=== PATIENT | male | born 1985 | race Caucasian/White ===

== ENCOUNTER → 2021-07-05 09:19 | Outpatient (BNVA) | payer SELFPAY | PROVIDERS: Visit Provider Orthopaedic Surgery | DX: Z01.812 Encounter for preprocedural laboratory examination (principal); Z20.822 Contact with and (suspected) exposure to COVID-19 | CPT/HCPCS: 87635 ==

== ENCOUNTER 2021-07-08 11:29 | Day surgery (SDC) | payer SELFPAY ==
[2021-07-07 10:34] VITALS: BMI 31.1
[2021-07-08] VITALS (15 sets, daily range): BP systolic 140–172; BP diastolic 94–110; PULSE 59–74; RESP 14–18; TEMP 36.1–36.4; O2SAT 91–97
--- NOTE | 2021-07-08 | XR_ITS ---
WS: [id number] Left clavicle, C-arm fluoroscopy, 07/08/2021 Clinical Data: ORIF LT CLAVICLE Comparison: None. Findings: The mid shaft fracture of the left clavicle is repaired with a plate and screws. XR/[place] [id number] Impression: Internal fixation of left clavicular fracture.
--- NOTE | 2021-07-08 | SCC_ITS ---
Procedure Done: Open reduction and internal fixation left clavicle 9.6 seconds of fluoroscopic guidance, for a cumulative dose of 1.69 mGy, was provided to Dr. Paz by the radiology department. C-arm images of the LEFT clavicle were saved for the patient's permanent record. [facility]ENTER[facility]ley
[2021-07-08] MEDS: sodium chloride 0.9% 1,000 ML 30 ML IV (12:48)
[2021-07-08] MEDS: fentaNYL 50 mcg/mL INJ 2mL IVP (13:00)
--- NOTE | 2021-07-08 13:45 | ANES.PREANE2 ---
Pre-Anesthetic Assessment Pre-Anesthetic Assessment: Height/Weight: Height 1.73 m Weight 92.986 kg Temp Pulse Resp BP Pulse Ox 96.9 F L 59 L 18 172/100 97 07/08/21 11:57 07/08/21 11:57 07/08/21 13:00 07/08/21 11:57 07/08/21 11:57 Preop Diagnosis: Fracture Left clavicle Proposed Procedure: Operation Date: 07/08/21 12:55 Proposed Procedures p ORIF Clavicle 01686 S42.002A(Left) - Francois Paz MD Was Beta Narayan taken within 24 hours: Yes Was Clonidine taken within 24 hours: N/A Last intake: Intake Last Liquid Date 07/07/21 Last Liquid Time 20:00 Last Solid Date 07/07/21 Last Solid Time 20:00 Social: Social History: Tobacco Exam: Pre-Anes Outpt Exam: alert, oriented x 3, clear to auscultation bilaterally and regular rate & rhythm Airway: Submandibular: WNL Cervical ROM: WNL MP: 2 History/ROS: No significant complaints CV/HEM: CV/HEM: HTN Anesthetic Plan: ASA status: 2 Anesthesia: Anesthesia Evaluation, General and Regional (specify below) Other: Interscalene block. Risk of > 500 ml blood loss (7ml/kg in children): No Meds/Allergies Current Medications: Current Medications Generic Name Dose Route Start Last Admin Trade Name Freq PRN Reason Stop Dose Admin Fentanyl 50 mcg 07/08/21 11:40 07/08/21 13:10 Fentanyl 50 Mcg/ Ml Inj 2ml IVP 50 mcg Q10M PRN Administration Preop Pain Sodium Chloride 1,000 mls @ 30 ml s/hr 07/08/21 11:45 07/08/21 12:48 Sodium Chloride 0.9% IV 07/09/21 11:44 30 mls/hr .Q24H OLIVIA Administration PFSH Anesthesia PFSH: Social History Alcohol intake: current Data Anesthesia Cardiac Studies: No Data to Display
--- NOTE | 2021-07-08 14:10 | W.PM.OPSUD ---
Surgery/Procedure H&P Update DATE OF PROCEDURE: July 08, 2021 DATE H&P PERFORMED: 07/05/21 H&P UPDATE INFORMATION: I have reviewed H&P completed within last 30 days PREOP DIAGNOSIS: Fracture Left clavicle PLANNED PROCEDURE: Operation Date: 07/08/21 12:55 Proposed Procedures p ORIF Clavicle 05275 S42.002A(Left) - Francois Paz MD
--- NOTE | 2021-07-08 16:45 | ANE.PACU2 ---
Inpatient post-anesthesia follow up: Airway intact: Yes Vital signs: Temperature 97.2 F Pulse Rate 62 Respiratory Rate 18 Blood Pressure 154/100 Pulse Oximetry 94 Oxygen Delivery Me thod Room Air Oxygen Flow Rate Fraction of Inspir ed Oxygen Hydration adequate: Yes Nausea and vomiting: No Pain level: 1 Mental status: Baseline
[2021-07-08] MEDS: HYDROmorphone 1 mg/mL INJ 1 mL 0.5 MG IVP (16:53)
[2021-07-08] MEDS: hyDRALAzine 20 mg/mL INJ 1 mL 10 MG IVP (17:00)
--- NOTE | 2021-07-08 17:25 | PM.OP ---
Operative Report Date of procedure: July 08, 2021 Pre-op Diagnosis: Fracture Left clavicle Post-op Findings: Fracture left clavicle Procedure Done: Open reduction and internal fixation left clavicle Implants: [place] 8 hole Variax left clavicle plate Pathology: none sent Surgeon: Francois Paz Anesthesia: General and Nerve Block (Interscalene block) Estimated blood loss (mL): 20 Findings: The patient had a comminuted midshaft clavicle fracture consisting of medial and lateral shaft fragments and 2 large butterfly fragment Condition: stable Disposition: PACU Procedure: The patient was into the operating room and given an interscalene block and a general anesthesia. He is prepped and draped in the beachchair position with a bump underneath the left scapula. A timeout was performed. An incision was made over the dorsal clavicle with a scalpel blade dissection carried out with electrocautery identifying the proximal and distal fragments. The fracture site was exposed and a large anterior and inferior butterfly fragment was mobilized. Additional preliminary fixation with the anterior fragment to the lateral shaft was accomplished with 2 K wires. This provided enough fracture anatomy to reduce the medial fragment to the lateral construct. A curved 8 hole plate was placed dorsally over the bone and held in place with a lobster claw clamp. It was fixed with 2 nonlocking and one locking screw both medial and lateral to the fracture. K wires were then removed. A interfrag compressions leg screw was placed across the large anterior fragment fixing it to the lateral fragment. The wound was irrigated with saline. The deep fascia was closed with 0 Vicryl. Subcutaneous tissues were closed with 2-0 Vicryl. Superficial subcutaneous tissues were closed with a running 2-0 Stratafix and the skin with a running 4-0 Stratafix suture and Dermabond skin glue. Sterile dressings were applied. The patient was placed in a sling, extubated, and taken recovery in stable condition.
[2021-07-08] MEDS: oxyCODONE 5 mg IR Tab/Cap PO (17:50)
== END 2021-07-08 18:00 | disposition home or self-care (01) ==
PROVIDERS: PCP Nurse Practitioner Family; Visit Provider Orthopaedic Surgery
PROC: (CPT 23515; principal; 2021-07-08 12:45)
DX: S42.022A Displaced fracture of shaft of left clavicle, initial encounter for closed fracture (principal); V19.9XXA Pedal cyclist (driver) (passenger) injured in unspecified traffic accident, initial encounter; Y93.55 Activity, bike riding
CPT/HCPCS: 23515; 73000; 76000; 96374; 96375; C1713; J0360; J0690; J1100; J1170; J2250; J2405; J2795; J3010; J3490; J7030

== ENCOUNTER → 2021-08-17 08:48 | Outpatient (BNVA) | payer SELFPAY | PROVIDERS: PCP Nurse Practitioner Family; Visit Provider Orthopaedic Surgery | DX: Z48.89 Encounter for other specified surgical aftercare (principal); S42.022D Displaced fracture of shaft of left clavicle, subsequent encounter for fracture with routine healing; X58.XXXD Exposure to other specified factors, subsequent encounter | CPT/HCPCS: 73000 ==

== ENCOUNTER 2021-08-27 00:35 | Emergency (ER) | payer SELFPAY ==
--- NOTE | 2021-08-27 00:39 | CTR_ITS ---
PROCEDURE INFORMATION: Exam: CT Head Without Contrast Exam date and time: 08/27/2021 12:39 AM Age: 36 years old Clinical indication: Injury or trauma; Blunt trauma (contusions or hematomas); Injury details: ETOH, fall. Hit left side of forehead on wood. Contusion to left side of forehead. + loc; Additional info: Head injury TECHNIQUE: Imaging protocol: Computed tomography of the head without contrast. Radiation optimization: All CT scans at this facility use at least one of these dose optimization techniques: automated exposure control; mA and/or kV adjustment per patient size (includes targeted exams where dose is matched to clinical indication); or iterative reconstruction. COMPARISON: No relevant prior studies available. RADIATION DOSE METRICS: Total DLP (mGy-cm): 896.18 FINDINGS: Brain: The brain is unremarkable. There is no mass effect or significant white matter disease. There is no acute intracranial hemorrhage. Cerebral ventricles: There is no significant ventricular dilation. The basal cisterns are unremarkable. Paranasal sinuses: The paranasal sinuses are clear. Mastoid air cells: The mastoid air cells are clear. Bones/joints: The calvarium is intact. Soft tissues: The visible extracranial soft tissues are unremarkable. CT/CT head wo con* [id number] IMPRESSION: No acute intracranial abnormality.
--- NOTE | 2021-08-27 00:39 | CTR_ITS ---
PROCEDURE INFORMATION: Exam: CT Cervical Spine Without Contrast Exam date and time: 08/27/2021 12:39 AM Age: 36 years old Clinical indication: Injury or trauma; Blunt trauma; Injury details: ETOH. Fall on wood pile. Hit head and +loc. Pain in head and neck. C-collar in place TECHNIQUE: Imaging protocol: Computed tomography images of the cervical spine without contrast. Radiation optimization: All CT scans at this facility use at least one of these dose optimization techniques: automated exposure control; mA and/or kV adjustment per patient size (includes targeted exams where dose is matched to clinical indication); or iterative reconstruction. COMPARISON: CT head wo con* [id number] 08/27/2021 12:40 AM RADIATION DOSE METRICS: Total DLP (mGy-cm): 735.83 FINDINGS: Bones/joints: Spinal alignment is normal. Vertebral body height is maintained. No acute fracture. Discs/Spinal canal/Neural foramina: There is no spinal canal stenosis. Lungs: Lung apices are clear. Soft tissues: Soft tissues in the neck and thoracic inlet are unremarkable. CT/CT cervical spin wo con* [id number] IMPRESSION: No acute fracture.
[2021-08-27 00:47] VITALS: BP 141/74; PULSE 104; RESP 18; O2SAT 93; BMI 33.4
--- NOTE | 2021-08-27 00:53 | XRR_ITS ---
PROCEDURE INFORMATION: Exam: XR Chest Exam date and time: 08/27/2021 12:53 AM Age: 36 years old Clinical indication: Injury or trauma; Fall; Blunt trauma (contusions or hematomas) TECHNIQUE: Imaging protocol: XR of the chest. Views: 1 view. COMPARISON: CR Chest 2 views* [id number] 09/06/2014 1:25 PM FINDINGS: Lungs: Lungs are clear. Pleural spaces: There is no pleural effusion or pneumothorax. Heart/Mediastinum: There is mild cardiac enlargement. The cardiac silhouette is within normal limits of size given AP technique. Bones/joints: Intact reconstruction plate and screws in the clavicle. No acute fracture. XR/XR chest 1V portable [id number] IMPRESSION: No acute findings.
--- NOTE | 2021-08-27 00:53 | XRR_ITS ---
PROCEDURE INFORMATION: Exam: XR Pelvis Exam date and time: 08/27/2021 12:53 AM Age: 36 years old Clinical indication: Injury or trauma; Fall; Blunt trauma (contusions or hematomas); Bilateral; Pelvic region TECHNIQUE: Imaging protocol: XR pelvis. Views: 1 or 2 view. COMPARISON: CT abdomen pelvis w con* [id number] 05/25/2019 2:29 PM FINDINGS: Bones/joints: Unremarkable. No acute fracture. Soft tissues: Unremarkable. XR/XR pelvis 1-2V* [id number] IMPRESSION: No acute findings.
--- NOTE | 2021-08-27 00:55 | ED_ITS ---
HPI - Fall General: Chief Complaint: Fall Stated Complaint: FALL Time Seen by Provider: 08/27/21 00:39 Source: patient and EMS Mode of arrival: EMS Limitations: no limitations History of Present Illness: HPI Narrative: 36-year-old male who is here from [facility]. He states he has been drinking heavily tonight he is unsure what happened but called EMS because he is found down on a wood pile he believes he may have fell does have abrasions to his head. Patient is now awake alert able answer all my questions states he has some neck pain head pain but denies pain elsewhere. He is able answer all my questions appropriately. Associated symptoms-after fall: Reports headache(s); Denies abdominal pain, chest pain or neck pain Review of Systems Const: Denies: fever(s), chills, body aches or change in appetite Eyes: Denies: blurry vision or eye discomfort ENMT: Denies: throat pain or dental pain Card: Denies: chest pain Resp: Denies: dyspnea GI: Denies: abdominal pain, nausea, vomiting or diarrhea : Denies: dysuria Musc: Denies: neck pain or back pain Skin/Breast: Denies: rash Neuro: Reports: headache(s) Psych: Denies: depression Jean-Claude/Lymph: Denies: easy bruising All/Imm: Denies: urticaria PFSH ED PFSH: Social History Alcohol intake: current Physical Exam Const: COMMON NORMALS: no acute distress and patient oriented x3 GENERAL APPEARANCE: odor of alcohol detected HENMT: COMMON NORMALS: normocephalic; head/scalp not atraumatic (abrasion to forehead) HEAD & SCALP: normocephalic; not atraumatic (abrasion to forehead) Eye: COMMON NORMALS: Equal, round and reactive pupils present and EOMs intact bilaterally PUPIL: Yes Equal, round and reactive pupils present Neck/C-Spine: OTHER: in c colar Chest: COMMONS NORMALS: normal inspection of the chest and normal palpation of entire chest wall Resp: COMMON NORMALS: normal respiratory effort, No retractions, No use of accessory muscles and clear to auscultation bilaterally AUSCULTATION: clear to auscultation bilaterally Cardio: COMMON NORMALS: regular rate, regular rhythm and No murmurs present (Cardio) RATE: regular rate RHYTHM: regular rhythm GI: COMMON NORMALS: Normal to inspection, nondistended, normoactive bowel sounds present, Soft to palpation, non-tender and no masses PALPATION: Yes Soft to palpation Extremity: COMMON NORMALS: normal to inspection and full ROM Neuro: COMMON NORMALS: patient oriented x3, moves all extremities and no focal motor deficits Psych: COMMON NORMALS: mental status grossly normal, Normal thought process present and cooperative THOUGHT PROCESS: Normal thought process present Skin: COMMON NORMALS: no rashes or lesions noted and no wounds GENERAL SKIN EXAM: no rashes or lesions noted Course Vital Signs: Vital signs: Vital Signs Pulse Rate 80 08/27/21 01:54 Respiratory Rate 17 08/27/21 01:54 Blood Pressure 110/61 08/27/21 01:54 Pulse Oximetry 96 08/27/21 01:54 MDM - Fall MDM Narrative: Medical decision making narrative: Patient presents here with closed head injury from a fall also with alcohol intoxication. Patient awake and alert now able to ambulate without any difficulty head CT along with C-spine chest x-ray pelvis are all negative. He is stable for discharge at this time. Lab Data: Labs: Lab Results 08/27/21 08/27/21 01:07 01:07 WBC 7.8 10^3/uL 10^3/ uL (4.0-10.0) RBC 4.67 10^6/uL 10^6 /uL (4.1-5.3) Hgb 15.5 g/dL g/dL (11.7-16.6) Hct 46.7 % % (42.0-52.0) MCV 100.0 fl H fl (80-94) MCH 33.2 pg pg (28.0-34.0) MCHC 33.2 g/dL g/dL (30.0-36.0) RDW 12.9 % % (12.1-15.1) Plt Count 229 10^3/cmm 10^3 /cmm (130-400) MPV 10.5 fL H fL (7.4-10.4) Neut % (Auto) 63.1 % % Lymph % (Auto) 25.6 % % Smyth % (Auto) 7.3 % % Eos % (Auto) 2.9 % % Baso % (Auto) 0.5 % % Neut # (Auto) 4.94 10^3/uL 10^3 /uL (1.8-7.7) Lymph # (Auto) 2.0 10^3/uL 10^3/ uL (0.8-4.8) Smyth # (Auto) 0.6 10^3/uL 10^3/ uL (0.2-0.9) Eos # (Auto) 0.2 10^3/uL 10^3/ uL (0.0-0.8) Baso # (Auto) 0.0 10^3/uL 10^3/ uL (0.0-0.1) Nucleated RBC % (a uto) 0 % % Nucleated RBCs # 0.0 /100WBC /100W BC Sodium 144 mmol/L mmol/L (136-145) Potassium 3.7 mmol/L mmol/L (3.5-5.1) Chloride 110 mmol/L H mmol /L (98-107) Carbon Dioxide 17 mmol/L L mmol/ L (22-29) Anion Gap 20.7 H (5-19) BUN 10 mg/dL mg/dL (6-20) Creatinine 0.8 mg/dL mg/dL (0.7-1.2) GFR Calculation 110.7 mL/min mL/m in (90-130) Glucose 121 mg/dL H mg/dL (65-115) Calculated Osmolal ity 298 mOsm/kg H mOs m/kg (285-295) Calcium 8.5 mg/dL mg/dL (8.5-10.5) Ethyl Alcohol 250 mg/dL H mg/dL (0-10) Imaging Data^: CT Head: Radiologist's impression: : 1985 Age/Sex: 36 / M ADM Date: 08/27/21 Loc: ER Room/Bed: Attending Dr: Ordering Provider/Ordering MD: Priyanka Claros MD Date of Service: 08/27/21 Procedure(s): CT head wo con* [id number] Accession Number(s): [id number] Report Number: [id number] PROCEDURE INFORMATION: Exam: CT Head Without Contrast Exam date and time: 08/27/2021 12:39 AM Age: 36 years old Clinical indication: Injury or trauma; Blunt trauma (contusions or hematomas); Injury details: ETOH, fall. Hit left side of forehead on wood. Contusion to left side of forehead. + loc; Additional info: Head injury TECHNIQUE: Imaging protocol: Computed tomography of the head without contrast. Radiation optimization: All CT scans at this facility use at least one of these dose optimization techniques: automated exposure control; mA and/or kV adjustment per patient size (includes targeted exams where dose is matched to clinical indication); or iterative reconstruction. COMPARISON: No relevant prior studies available. RADIATION DOSE METRICS: Total DLP (mGy-cm): 896.18 FINDINGS: Brain: The brain is unremarkable. There is no mass effect or significant white matter disease. There is no acute intracranial hemorrhage. Cerebral ventricles: There is no significant ventricular dilation. The basal cisterns are unremarkable. Paranasal sinuses: The paranasal sinuses are clear. Mastoid air cells: The mastoid air cells are clear. Bones/joints: The calvarium is intact. Soft tissues: The visible extracranial soft tissues are unremarkable. CT/CT head wo con* [id number] IMPRESSION: No acute intracranial abnormality. Dictated By: Sean Kebede MD Signed By: Sean Kebede MD Signed Date/Time: 08/27/21 0055 DD/ [address]: Radiologist's impression: [address] [place] [address] CT Scan Report Signed Patient: Albert Rangel Unit #: [id number] : 1985 Age/Sex: 36 / M ADM Date: 08/27/21 Loc: ER Room/Bed: Attending Dr: Ordering Provider/Ordering MD: Priyanka Claros MD Date of Service: 08/27/21 Procedure(s): CT cervical spin wo con* [id number] Accession Number(s): [id number] Report Number: [id number] PROCEDURE INFORMATION: Exam: CT Cervical Spine Without Contrast Exam date and time: 08/27/2021 12:39 AM Age: 36 years old Clinical indication: Injury or trauma; Blunt trauma; Injury details: ETOH. Fall on wood pile. Hit head and +loc. Pain in head and neck. C-collar in place TECHNIQUE: Imaging protocol: Computed tomography images of the cervical spine without contrast. Radiation optimization: All CT scans at this facility use at least one of these dose optimization techniques: automated exposure control; mA and/or kV adjustment per patient size (includes targeted exams where dose is matched to clinical indication); or iterative reconstruction. COMPARISON: CT head wo con* [id number] 08/27/2021 12:40 AM RADIATION DOSE METRICS: Total DLP (mGy-cm): 735.83 FINDINGS: Bones/joints: Spinal alignment is normal. Vertebral body height is maintained. No acute fracture. Discs/Spinal canal/Neural foramina: There is no spinal canal stenosis. Lungs: Lung apices are clear. Soft tissues: Soft tissues in the neck and thoracic inlet are unremarkable. CT/CT cervical spin wo con* [id number] IMPRESSION: No acute fracture. Dictated By: Sean Kebede MD Signed By: Sean Kebede MD Signed Date/Time: 08/27/2157 DD/ CXR: Attestation: I personally reviewed and interpreted this imaging study as follows: My impression: no acute abnormality pelvis xr: Radiologist's impression: no acute abnormality Discharge Plan Discharge Patient Disposition: Home Clinical Impression: Head injury, Alcohol intoxication Condition: Stable Prescriptions: No Action atenolol 25 mg tablet 25 mg PO DAILY RF: 0 lisinopril 20 mg tablet 20 mg PO DAILY RF: 0 oxycodone 5 mg tablet 5 mg PO Q4H PRN (Reason: pain) Qty: 40 RF: 0 Discharge Orders: Discharge ED (Routine); Ordered 08/27/21 Ordered By: Priyanka Claros Referrals: Jamia Rod [Primary Care Provider] - Discharge Diet: Advance as tolerated Discharge Activity: Resume usual activity Patient Instructions: Head Injury (ED), Alcohol Intoxication (ED) Coding Level of Care Code ED Supervisor [employer] for Chg Fwd 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
[2021-08-27 01:28] LABS: Basophils % 0.5 %; Eosinophils # 0.2 10^3/uL (0.0-0.8); Eosinophils % 2.9 %; Hematocrit 46.7 % (42.0-52.0); Hemoglobin 15.5 g/dL (11.7-16.6); Lymphocytes % 25.6 %; Mean Corpuscular HGB Conc 33.2 g/dL (30.0-36.0); Mean Corpuscular Hemoglobin 33.2 pg (28.0-34.0); Mean Platelet Volume 10.5 fL (7.4-10.4); Monocytes # 0.6 10^3/uL (0.2-0.9); Monocytes % 7.3 %; Neutrophils # 4.94 10^3/uL (1.8-7.7); Neutrophils % 63.1 %; Nucleated Red Blood Cells % 0 %; Platelet Count 229 10^3/cmm (130-400); Red Blood Count 4.67 10^6/uL (4.1-5.3); Red Cell Distribution Width 12.9 % (12.1-15.1); White Blood Count 7.8 10^3/uL (4.0-10.0)
[2021-08-27 01:34] LABS: Alcohol Level 250 mg/dL (0-10); Blood Urea Nitrogen 10 mg/dL (6-20); Calcium 8.5 mg/dL (8.5-10.5); Carbon Dioxide 17 mmol/L (22-29); Chloride 110 mmol/L (98-107); Creatinine Clr Calc Pharmacy 148.9815; Glomerular Filtration Rate 110.7 mL/min (90-130); Glucose 121 mg/dL (65-115); Osmolality Calculated 298 mOsm/kg (285-295); Sodium 144 mmol/L (136-145)
[2021-08-27 01:39] LABS: Anion Gap 20.7 (5-19); Potassium 3.7 mmol/L (3.5-5.1)
[2021-08-27 01:54] VITALS: BP 110/61; PULSE 80; RESP 17; O2SAT 96
== END 2021-08-27 01:57 | disposition home or self-care (01) ==
PROVIDERS: Emergency Provider Emergency Medicine; PCP Nurse Practitioner Family
DX: S09.90XA Unspecified injury of head, initial encounter (principal); F10.129 Alcohol abuse with intoxication, unspecified; Y90.8 Blood alcohol level of 240 mg/100 ml or more; W19.XXXA Unspecified fall, initial encounter
CPT/HCPCS: 70450; 71045; 72125; 72170; 80048; 80307; 85025; 99283

== ENCOUNTER → 2021-11-02 08:14 | Outpatient (BNVA) | payer SELFPAY | PROVIDERS: PCP Nurse Practitioner Family; Visit Provider Orthopaedic Surgery | DX: Z48.89 Encounter for other specified surgical aftercare (principal) | CPT/HCPCS: 73000 ==

== ENCOUNTER 2022-08-10 03:21 | Inpatient (IN) | payer MEDICAID, SELFPAY ==
[2022-08-10] VITALS (156 sets, daily range): BP systolic 121–181; BP diastolic 82–125; PULSE 62–95; RESP 11–25; TEMP 36–37.1; O2SAT 84–99; BMI 33.4
--- NOTE | 2022-08-10 03:41 | CTR_ITS ---
PROCEDURE INFORMATION: Exam: CT Abdomen And Pelvis With Contrast Exam date and time: 08/10/2022 3:56 AM Age: 37 years old Clinical indication: Nausea and vomiting; Abdominal pain; Generalized; Patient HX: C/O abd pain with n/v. TECHNIQUE: Imaging protocol: Computed tomography of the abdomen and pelvis with contrast. Radiation optimization: All CT scans at this facility use at least one of these dose optimization techniques: automated exposure control; mA and/or kV adjustment per patient size (includes targeted exams where dose is matched to clinical indication); or iterative reconstruction. Contrast material: OMNI 350; Contrast volume: 100 ml; Contrast route: INTRAVENOUS (IV); COMPARISON: CT abdomen pelvis w con* [id number] 05/25/2019 2:29 PM RADIATION DOSE METRICS: Total DLP (mGy-cm): 674.43 FINDINGS: Lungs: The lung bases are clear. No effusion Liver: Normal. No mass. Gallbladder and bile ducts: No wall thickening, pericholecystic fluid or stones. Pancreas: The pancreas is enlarged and edematous with peripancreatic fat stranding. Normal pancreatic enhancement. Spleen: Normal. No splenomegaly. Adrenal glands: Normal. No mass. Kidneys and ureters: Normal. No hydronephrosis. Stomach and bowel: Unremarkable. No obstruction. No mucosal thickening. Appendix: No evidence of appendicitis. Intraperitoneal space: Unremarkable. No free air. No significant fluid collection. Vasculature: Unremarkable. No abdominal aortic aneurysm. Lymph nodes: Unremarkable. No enlarged lymph nodes. Urinary bladder: Unremarkable as visualized. Reproductive: Unremarkable as visualized. Bones/joints: Unremarkable. No acute fracture. Soft tissues: Unremarkable. CT/CT abdomen pelvis w con* [id number] IMPRESSION: Acute pancreatitis without necrosis.
--- NOTE | 2022-08-10 03:42 | ED_ITS ---
Documented by User: Priyanka Claros MD 08/10/22 03:43 HPI - Abdominal Pain General: Chief Complaint: Abdominal Pain Stated Complaint: ABD\V Time Seen by Provider: 08/10/22 03:22 Source: patient Mode of arrival: ambulatory Limitations: no limitations History of Present Illness: 37-year-old male states that starting yesterday evening he is having nausea with multiple episodes of vomiting. He states that he woke up this morning with vomiting and now he is having severe abdominal pain over the last 1 to 2 hours he states pain is diffuse in nature and radiates to his flank he denies any worsening proving factors his pain is currently a 9 out of 10 denies any fevers. Associated Symptoms: Reports nausea and vomiting; Denies chills, dysuria and fever(s) Review of Systems Const: Denies: fever(s), chills, body aches or change in appetite Eyes: Denies: blurry vision or eye discomfort ENMT: Denies: throat pain or dental pain Card: Denies: chest pain Resp: Denies: dyspnea GI: Reports: abdominal pain, nausea and vomiting : Denies: dysuria Musc: Denies: neck pain or back pain Skin/Breast: Denies: rash Neuro: Denies: headache(s) Psych: Denies: depression Jean-Claude/Lymph: Denies: easy bruising All/Imm: Denies: urticaria PFSH ED PFSH: Medical History (Updated 08/10/22 @ 14:14 by Stevenson Hays DO) Cholelithiasis Hypertension Surgical History (Updated 08/10/22 @ 13:07 by Brody España MD) History of foot surgery Family History (Updated 08/10/22 @ 13:07 by Brody España MD) Other Cancer Social History Smoking and tobacco status: current every day smoker Alcohol intake: current Physical Exam Const: COMMON NORMALS: no acute distress, patient oriented x3 and healthy appearing HENMT: COMMON NORMALS: normocephalic and atraumatic HEAD & SCALP: normocephalic and atraumatic Eye: COMMON NORMALS: Equal, round and reactive pupils present and EOMs intact bilaterally PUPIL: Yes Equal, round and reactive pupils present Neck/C-Spine: COMMON NORMALS: full ROM and supple Chest: COMMONS NORMALS: normal inspection of the chest and normal palpation of entire chest wall Resp: COMMON NORMALS: normal respiratory effort, No retractions, No use of accessory muscles and clear to auscultation bilaterally AUSCULTATION: clear to auscultation bilaterally Cardio: COMMON NORMALS: regular rate, regular rhythm and No murmurs present (Cardio) RATE: regular rate RHYTHM: regular rhythm GI: COMMON NORMALS: Normal to inspection, nondistended, normoactive bowel sounds present, Soft to palpation, non-tender and no masses PALPATION: Yes Soft to palpation Extremity: COMMON NORMALS: normal to inspection and full ROM Neuro: COMMON NORMALS: patient oriented x3, moves all extremities and no focal motor deficits Psych: COMMON NORMALS: mental status grossly normal, Normal thought process present and cooperative THOUGHT PROCESS: Normal thought process present Skin: COMMON NORMALS: no rashes or lesions noted and no wounds GENERAL SKIN EXAM: no rashes or lesions noted Course Vital Signs: Vital signs: Vital Signs Temperature 98.5 F 08/10/22 14:05 Pulse Rate 67 08/10/22 14:05 Respiratory Rate 15 08/10/22 14:05 Blood Pressure 121/91 08/10/22 14:05 Pulse Oximetry 94 08/10/22 14:05 Oxygen Delivery Me thod 08/10/22 14:05 Oxygen Flow Rate 1 08/10/22 14:05 MDM - Abdominal Pain Lab Data 08/10/22 03:30 08/10/22 03:30 Labs/Radiology: Radiology Impressions Abdomen/Pelvis CT 08/10/22 03:41 IMPRESSION: Acute pancreatitis without necrosis. Gallbladder Ultrasound 08/10/22 04:34 IMPRESSION: 1. Examination limited by body habitus. 2. Fatty infiltration of the liver. 3. Gallstones and sludge with wall thickening but no sonographic changes of cholecystitis. However, The special procedure technologist reports a positive sonographic Shi sign. Cholangiopancreatography MRI 08/10/22 05:15 IMPRESSION: 1. Acute interstitial pancreatitis. No drainable fluid collections. 2. No biliary dilation or evidence of choledocholithiasis. 3. Mild mural thickening of the gallbladder is favored to be reactive, though HIDA scan would better evaluate for acute cholecystitis. Laboratory Results WBC 12.1 10^3/uL (4.0-10.0) H 08/10/22 03:30 RBC 4.80 10^6/uL (4.1-5.3) 08/10/22 03:30 Hgb 16.9 g/dL (11.7-16.6) H 08/10/22 03:30 Hct 49.9 % (42.0-52.0) 08/10/22 03:30 MCV 104.0 fl (80-94) H 08/10/22 03:30 MCH 35.2 pg (28.0-34.0) H 08/10/22 03:30 MCHC 33.9 g/dL (30.0-36.0) 08/10/22 03:30 RDW 13.9 % (12.1-15.1) 08/10/22 03:30 Plt Count 259 10^3/cmm (130-400) 08/10/22 03:30 MPV 10.7 fL (7.4-10.4) H 08/10/22 03:30 Neut % (Auto) 80.2 % 08/10/22 03:30 Lymph % (Auto) 10.1 % 08/10/22 03:30 Price % (Auto) 7.2 % 08/10/22 03:30 Eos % (Auto) 1.4 % 08/10/22 03:30 Baso % (Auto) 0.6 % 08/10/22 03:30 Neut # (Auto) 9.66 10^3/uL (1.8-7.7) H 08/10/22 03:30 Lymph # (Auto) 1.2 10^3/uL (0.8-4.8) 08/10/22 03:30 Price # (Auto) 0.9 10^3/uL (0.2-0.9) 08/10/22 03:30 Eos # (Auto) 0.2 10^3/uL (0.0-0.8) 08/10/22 03:30 Baso # (Auto) 0.1 10^3/uL (0.0-0.1) 08/10/22 03:30 Nucleated RBC % (auto) 0 % 08/10/22 03:30 Nucleated RBCs # 0.0 /100WBC 08/10/22 03:30 Sodium 143 mmol/L (136-145) 08/10/22 03:30 Potassium 3.6 mmol/L (3.5-5.1) 08/10/22 03:30 Chloride 103 mmol/L (98-107) 08/10/22 03:30 Carbon Dioxide 29 mmol/L (22-29) 08/10/22 03:30 Anion Gap 14.6 (5-19) 08/10/22 03:30 BUN 10 mg/dL (6-20) 08/10/22 03:30 Creatinine 0.3 mg/dL (0.7-1.2) L 08/10/22 03:30 GFR Calculation 341.2 mL/min (90-130) H 08/10/22 03:30 Glucose 107 mg/dL (65-115) 08/10/22 03:30 Calculated Osmolality 296 mOsm/kg (285-295) H 08/10/22 03:30 Calcium 9.9 mg/dL (8.5-10.5) 08/10/22 03:30 Magnesium 2.1 mg/dL (1.7-2.3) 08/10/22 03:30 Total Bilirubin 1.0 mg/dL (0.15-1.2) 08/10/22 03:30 AST 455 U/L (0-40) H 08/10/22 03:30 ALT 157 U/L (0-41) H 08/10/22 03:30 Alkaline Phosphatase 131 U/L (40-130) H 08/10/22 03:30 Total Protein 7.6 g/dL (6.6-8.7) 08/10/22 03:30 Albumin 4.5 g/dL (3.5-5.2) 08/10/22 03:30 Globulin 3.1 g/dL (1.3-4.6) 08/10/22 03:30 Triglycerides 102 mg/dL (0-150) 08/10/22 03:30 Lipase > 58529 U/L (13-60) H 08/10/22 03:30 TSH 2.35 uIU/mL (0.27-4.20) 08/10/22 03:30 Urine Color Yellow (Yellow) 08/10/22 04:30 Urine Appearance Clear (CLEAR) 08/10/22 04:30 Urine pH 6 (5-7) 08/10/22 04:30 Ur Specific Russell 1.010 (1.005-1.030) 08/10/22 04:30 Urine Protein Neg (Negative) 08/10/22 04:30 Urine Glucose (UA) Norm (Normal) 08/10/22 04:30 Urine Ketones Negative (Negative) 08/10/22 04:30 Urine Blood Neg (Negative) 08/10/22 04:30 Urine Nitrate Negative (Negative) 08/10/22 04:30 Urine Bilirubin Neg (Negative) 08/10/22 04:30 Urine Urobilinogen Norm mg/dL (Negative) 08/10/22 04:30 Ur Leukocyte Esterase Negative (Negative) 08/10/22 04:30 Discharge Plan Discharge Patient Disposition: Admitted As Inpatient Admit Provider: Zoe Cutler Clinical Impression: Acute pancreatitis, Cholelithiasis Condition: Stable Sign Out Sign Out Data: Patient Sign Out occurred on 08/10/22 at 13:49. Patient's care was discussed, and care was transferred from to Stevenson Hays DO. Coding Level of Care Code ED Billing And Insurance Coordinator for Chg Fwd 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 Documented by User: Stevenson Hays DO 08/10/22 14:14 HPI - Abdominal Pain General: Chief Complaint: Abdominal Pain Stated Complaint: ABD\V Time Seen by Provider: 08/10/22 03:22 PFS ED PFSH: Medical History (Updated 08/10/22 @ 14:14 by Stevenson Hays DO) Cholelithiasis Hypertension Surgical History (Updated 08/10/22 @ 13:07 by Brody España MD) History of foot surgery Family History (Updated 08/10/22 @ 13:07 by Brody España MD) Other Cancer Social History Smoking and tobacco status: current every day smoker Alcohol intake: current Course Vital Signs: Vital signs: Vital Signs Temperature 98.5 F 08/10/22 14:05 Pulse Rate 67 08/10/22 14:05 Respiratory Rate 15 08/10/22 14:05 Blood Pressure 121/91 08/10/22 14:05 Pulse Oximetry 94 08/10/22 14:05 Oxygen Delivery Me thod 08/10/22 14:05 Oxygen Flow Rate 1 08/10/22 14:05 MDM - Abdominal Pain Medical Decision Making Discussed with , to ensure that they are aware the patient was being admitted there is a change of shift she was handed off to Dr. Lipscomb who I also discussed with Dr. Lipscomb has seen the patient on the floor. Followed up the MRCP was negative. Medical Records I reviewed the patient's medical records. Lab Data I reviewed the patient's lab results. 08/10/22 03:30 08/10/22 03:30 Labs/Radiology: Radiology Impressions Abdomen/Pelvis CT 08/10/22 03:41 IMPRESSION: Acute pancreatitis without necrosis. Gallbladder Ultrasound 08/10/22 04:34 IMPRESSION: 1. Examination limited by body habitus. 2. Fatty infiltration of the liver. 3. Gallstones and sludge with wall thickening but no sonographic changes of cholecystitis. However, The special procedure technologist reports a positive sonographic Shi sign. Cholangiopancreatography MRI 08/10/22 05:15 IMPRESSION: 1. Acute interstitial pancreatitis. No drainable fluid collections. 2. No biliary dilation or evidence of choledocholithiasis. 3. Mild mural thickening of the gallbladder is favored to be reactive, though HIDA scan would better evaluate for acute cholecystitis. Laboratory Results WBC 12.1 10^3/uL (4.0-10.0) H 08/10/22 03:30 RBC 4.80 10^6/uL (4.1-5.3) 08/10/22 03:30 Hgb 16.9 g/dL (11.7-16.6) H 08/10/22 03:30 Hct 49.9 % (42.0-52.0) 08/10/22 03:30 MCV 104.0 fl (80-94) H 08/10/22 03:30 MCH 35.2 pg (28.0-34.0) H 08/10/22 03:30 MCHC 33.9 g/dL (30.0-36.0) 08/10/22 03:30 RDW 13.9 % (12.1-15.1) 08/10/22 03:30 Plt Count 259 10^3/cmm (130-400) 08/10/22 03:30 MPV 10.7 fL (7.4-10.4) H 08/10/22 03:30 Neut % (Auto) 80.2 % 08/10/22 03:30 Lymph % (Auto) 10.1 % 08/10/22 03:30 Price % (Auto) 7.2 % 08/10/22 03:30 Eos % (Auto) 1.4 % 08/10/22 03:30 Baso % (Auto) 0.6 % 08/10/22 03:30 Neut # (Auto) 9.66 10^3/uL (1.8-7.7) H 08/10/22 03:30 Lymph # (Auto) 1.2 10^3/uL (0.8-4.8) 08/10/22 03:30 Price # (Auto) 0.9 10^3/uL (0.2-0.9) 08/10/22 03:30 Eos # (Auto) 0.2 10^3/uL (0.0-0.8) 08/10/22 03:30 Baso # (Auto) 0.1 10^3/uL (0.0-0.1) 08/10/22 03:30 Nucleated RBC % (auto) 0 % 08/10/22 03:30 Nucleated RBCs # 0.0 /100WBC 08/10/22 03:30 Sodium 143 mmol/L (136-145) 08/10/22 03:30 Potassium 3.6 mmol/L (3.5-5.1) 08/10/22 03:30 Chloride 103 mmol/L (98-107) 08/10/22 03:30 Carbon Dioxide 29 mmol/L (22-29) 08/10/22 03:30 Anion Gap 14.6 (5-19) 08/10/22 03:30 BUN 10 mg/dL (6-20) 08/10/22 03:30 Creatinine 0.3 mg/dL (0.7-1.2) L 08/10/22 03:30 GFR Calculation 341.2 mL/min (90-130) H 08/10/22 03:30 Glucose 107 mg/dL (65-115) 08/10/22 03:30 Calculated Osmolality 296 mOsm/kg (285-295) H 08/10/22 03:30 Calcium 9.9 mg/dL (8.5-10.5) 08/10/22 03:30 Magnesium 2.1 mg/dL (1.7-2.3) 08/10/22 03:30 Total Bilirubin 1.0 mg/dL (0.15-1.2) 08/10/22 03:30 AST 455 U/L (0-40) H 08/10/22 03:30 ALT 157 U/L (0-41) H 08/10/22 03:30 Alkaline Phosphatase 131 U/L (40-130) H 08/10/22 03:30 Total Protein 7.6 g/dL (6.6-8.7) 08/10/22 03:30 Albumin 4.5 g/dL (3.5-5.2) 08/10/22 03:30 Globulin 3.1 g/dL (1.3-4.6) 08/10/22 03:30 Triglycerides 102 mg/dL (0-150) 08/10/22 03:30 Lipase > 12224 U/L (13-60) H 08/10/22 03:30 TSH 2.35 uIU/mL (0.27-4.20) 08/10/22 03:30 Urine Color Yellow (Yellow) 08/10/22 04:30 Urine Appearance Clear (CLEAR) 08/10/22 04:30 Urine pH 6 (5-7) 08/10/22 04:30 Ur Specific Russell 1.010 (1.005-1.030) 08/10/22 04:30 Urine Protein Neg (Negative) 08/10/22 04:30 Urine Glucose (UA) Norm (Normal) 08/10/22 04:30 Urine Ketones Negative (Negative) 08/10/22 04:30 Urine Blood Neg (Negative) 08/10/22 04:30 Urine Nitrate Negative (Negative) 08/10/22 04:30 Urine Bilirubin Neg (Negative) 08/10/22 04:30 Urine Urobilinogen Norm mg/dL (Negative) 08/10/22 04:30 Ur Leukocyte Esterase Negative (Negative) 08/10/22 04:30 Discharge Plan Discharge Patient Disposition: Admitted As Inpatient Admit Provider: Zoe Cutler Clinical Impression: Acute pancreatitis, Cholelithiasis Condition: Stable Sign Out Sign Out Data: Patient Sign Out occurred on 08/10/22 at 13:49. Patient's care was discussed, and care was transferred from to Stevenson Hays DO. Coding Level of Care Code ED Billing And Insurance Coordinator for Chg Fwd 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
[2022-08-10] MEDS: morphine 4 mg/mL SDV 1 mL IVP (03:51)
[2022-08-10] MEDS: ondansetron 2 mg/ML SDV 2 mL 4 MG IVP ×2 (03:51→18:01)
[2022-08-10] MEDS: sodium chloride 0.9% 1,000 ML 999 ML IV ×2 (03:51→06:36)
[2022-08-10] MEDS: iohexol 350 mg/mL 500 mL Btl (per mL) IV (03:59)
[2022-08-10 04:28] LABS: Basophils # 0.1 10^3/uL (0.0-0.1); Basophils % 0.6 %; Eosinophils # 0.2 10^3/uL (0.0-0.8); Eosinophils % 1.4 %; Hematocrit 49.9 % (42.0-52.0); Hemoglobin 16.9 g/dL (11.7-16.6); Lymphocytes # 1.2 10^3/uL (0.8-4.8); Lymphocytes % 10.1 %; Mean Corpuscular HGB Conc 33.9 g/dL (30.0-36.0); Mean Corpuscular Hemoglobin 35.2 pg (28.0-34.0); Mean Platelet Volume 10.7 fL (7.4-10.4); Monocytes # 0.9 10^3/uL (0.2-0.9); Monocytes % 7.2 %; Neutrophils # 9.66 10^3/uL (1.8-7.7); Neutrophils % 80.2 %; Nucleated Red Blood Cells % 0 %; Platelet Count 259 10^3/cmm (130-400); Red Cell Distribution Width 13.9 % (12.1-15.1); White Blood Count 12.1 10^3/uL (4.0-10.0)
--- NOTE | 2022-08-10 04:34 | USR_ITS ---
PROCEDURE INFORMATION: Exam: US Abdomen, Limited; Right Upper Quadrant Exam date and time: 08/10/2022 4:41 AM Age: 37 years old Clinical indication: Generalized; Patient HX: Diffuse abdominal pain x 1-2 days; Additional info: Abd pain TECHNIQUE: Imaging protocol: Real time ultrasound of the abdomen with image documentation. Limited exam focused on the right upper quadrant. COMPARISON: CT abdomen pelvis w con* [id number] 08/10/2022 3:56 AM FINDINGS: Liver: There is fatty infiltration of the liver. Gallbladder: There are gallstones with sludge and mild wall thickening but no pericholecystic fluid. Biliary ducts: Common bile duct diameter is 4 mm. Pancreas: Visualized portions of the pancreas are normal. Right kidney: Normal. No mass. No hydronephrosis. Aorta: Visualized portions of the aorta and IVC are normal. Other findings: Examination limited by body habitus. US/US gall bladder [id number] IMPRESSION: 1. Examination limited by body habitus. 2. Fatty infiltration of the liver. 3. Gallstones and sludge with wall thickening but no sonographic changes of cholecystitis. However, The medicine technologist reports a positive sonographic Hsi sign.
[2022-08-10] MEDS: HYDROmorphone 1 mg/mL INJ 1 mL IVP ×2 (04:36→06:36)
[2022-08-10 04:45] LABS: Add Urine Microscopic? NO; Charge for UA Resulting for Rev
[2022-08-10 04:48] LABS: Albumin Level 4.5 g/dL (3.5-5.2); Alkaline Phosphatase 131 U/L (40-130); Anion Gap 14.6 (5-19); Aspartate Amino Transferase 455 U/L (0-40); Blood Urea Nitrogen 10 mg/dL (6-20); Calcium 9.9 mg/dL (8.5-10.5); Carbon Dioxide 29 mmol/L (22-29); Chloride 103 mmol/L (98-107); Globulin 3.1 g/dL (1.3-4.6); Glomerular Filtration Rate 341.2 mL/min (90-130); Glucose 107 mg/dL (65-115); Osmolality Calculated 296 mOsm/kg (285-295); Potassium 3.6 mmol/L (3.5-5.1); Sodium 143 mmol/L (136-145); Total Protein 7.6 g/dL (6.6-8.7)
[2022-08-10 04:53] LABS: Bilirubin Urine Neg (Negative); Blood Urine Neg (Negative); Glucose Urine UA Norm (Normal); Ketones Urine Negative (Negative); Leukocyte Esterase Urine Negative (Negative); Nitrate Urine Negative (Negative); Protein Urine Neg (Negative); Urine Appearance Clear (CLEAR); Urine Color Yellow (Yellow); Urobilinogen Urine Norm (Negative); pH Urine 6 (5-7)
[2022-08-10 04:58] LABS: Alanine Aminotransferase 157 U/L (0-41)
--- NOTE | 2022-08-10 05:15 | MRR_ITS ---
PROCEDURE INFORMATION: Exam: MR Abdomen Without Contrast Exam date and time: 08/10/2022 6:10 AM Age: 37 years old Clinical indication: Abdominal pain; Additional info: Abd pain TECHNIQUE: Imaging protocol: Magnetic resonance imaging of the abdomen without contrast. COMPARISON: CT abdomen pelvis w con* [id number] 08/10/2022 3:56 AM FINDINGS: Liver: No mass. Gallbladder and bile ducts: The gallbladder is not overly distended but demonstrates some mild mural thickening. There appear to be small gallstones in the lumen of the gallbladder. No biliary dilation or evidence of choledocholithiasis. Pancreas: There is edema within and about the pancreatic parenchyma and within the anterior pararenal space. No drainable fluid collections. Spleen: Unremarkable. No splenomegaly. Adrenal glands: Unremarkable. No mass. Kidneys and ureters: Within normal limits. Stomach and bowel: Visualized stomach and intestines are unremarkable. Intraperitoneal space: No free fluid. Vasculature: No abdominal aortic aneurysm. Bones/joints: Unremarkable. Soft tissues: Unremarkable. MR/MR MRCP [id number] IMPRESSION: 1. Acute interstitial pancreatitis. No drainable fluid collections. 2. No biliary dilation or evidence of choledocholithiasis. 3. Mild mural thickening of the gallbladder is favored to be reactive, though HIDA scan would better evaluate for acute cholecystitis.
[2022-08-10] MEDS: piperacillin-tazobactam 3.375 GM in sodium chloride 0.9% (plus) 50 ML IV ×2 (05:21→06:36)
--- NOTE | 2022-08-10 06:02 | PC.NURSE ---
first dose of Zosyn was not infused; apparently the line became disconnected from the IV and ran out on to the bed and floor.
--- NOTE | 2022-08-10 09:14 | P.HP_ITS ---
Providers/Chief Complaint Admitting Physician: Brody España MD Primary Care Provider: Jamia Rod Chief Complaint: ABD\V History of Present Illness Albert Rangel is a 37 year old male presenting with abdominal pain to the emergency department. Pain started about 3 days ago, but is got progressively worse. He eventually started vomiting. No blood in his emesis or stool that he knows of. Pain is all over the abdomen. It is into the flanks as well. He denies ever having pancreatitis before, or pain like this. He denies any fevers, or new medicines. He believes his last alcoholic drink was several weeks ago. Review of Systems General: Reports: 10 or more systems reviewed and unremarkable except in HPI and below Const: Reports: malaise; Denies: fever(s) or chills Eyes: Denies: change in vision ENMT: Denies: throat pain Card: Denies: chest pain Resp: Denies: dyspnea GI: Reports: abdominal pain, nausea and vomiting : Reports: flank pain; Denies: difficulty urinating Musc: Denies: neck pain Skin/Breast: Denies: rash Neuro: Denies: headache(s) Psych: Denies: anxiety or depression Endo: Denies: polyuria Jean-Claude/Lymph: Denies: easy bruising All/Imm: Denies: urticaria Medications/Allergies Home Medications Medication Instructions Recorded Confirmed Last Taken Type atenolol 25 mg tablet 50 mg PO DAILY 06/23/21 08/10/22 07/08/21 History lisinopril 20 mg tablet 20 mg PO DAILY 06/23/21 08/10/22 07/07/21 History Allergies Allergy/AdvReac Type Severity Reaction Status Date / Time No Known Allergies Allergy Verified 11/02/21 08:18 PFSH Acute PFSH: Medical History (Updated 08/10/22 @ 13:07 by Brody España MD) Cholelithiasis Hypertension Surgical History (Updated 08/10/22 @ 13:07 by Brody España MD) History of foot surgery Family History (Updated 08/10/22 @ 13:07 by Brody España MD) Other Cancer Social History Smoking and tobacco status: current every day smoker Alcohol intake: current Other PFSH information: Supplemental PFSH Information: History of clavicle surgery Vitals/I&O/Wt Last Vital Signs Temp 97.6 F 08/10/22 03:31 Pulse 77 08/10/22 08:12 Resp 18 08/10/22 08:12 BP 132/97 08/10/22 08:12 Pulse Ox 94 08/10/22 08:12 O2 Del Method 08/10/22 06:37 08/09/22 08/10/22 08/10/22 22:59 06:59 14:59 Intake Total 1000 / 1000 1050 / 1050 Output Total 600 / 600 Balance 400 / 400 1050 / 1050 Weight last 48 hrs Weight 99.79 kg Physical Exam Narrative: General exam is a white male, in apparent abdominal pain, who is able to converse HEENT: Atraumatic and normocephalic. Pupils equal round. Oropharynx clear. Neck is supple no lymphadenopathy thyromegaly Cardiovascular regular rate and rhythm without murmur Lungs clear no wheezing or crackles Abdomen is soft but tender positive bowel sounds. No obvious organomegaly exam deferred Extremities no cyanosis clubbing or edema, cap refill brisk Skin no rash Neuro no obvious focal deficits. Data 08/10/22 03:30 08/10/22 03:30 Other data: Liver function test demonstrated AST of 455, ALT of 157, alk phos of 131. Albumin is 4.5. Calcium is normal at 9.9. Triglyceride level is 102. TSH normal. Lipase greater than 21,000 Urinalysis negative MRCP demonstrates pancreatitis, no biliary dilation, mild mural thickening of gallbladder Gallbladder ultrasound demonstrated gallstones and sludge, fatty infiltration of the liver Abdomen pelvis CT demonstrated acute pancreatitis without necrosis A&P Assessment and plan (1) Acute pancreatitis: Patient presents with acute pancreatitis. Etiology not completely clear but could include alcohol, lisinopril. Doubt gallstone pancreatitis at this point but cannot completely exclude. Triglyceride level is normal Keep n.p.o. currently Pain control Continue hydration Close follow-up of electrolytes Protonix IV No evidence of infection currently but monitor for fevers (2) Cholelithiasis: Cholelithiasis has been noted No evidence of duct obstruction Will need surgical evaluation in the near future secondary to pancreatitis and noted gallstones. Patient be contacted as patient improves to get an overall short-term plan if cholecystectomy should be entertained. Plan History of hypertension. He reports he intermittently takes medication for this. 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
[2022-08-10] MEDS: HYDROmorphone 1 mg/mL INJ 1 mL 0.5 MG IVP ×5 (09:35→22:52)
[2022-08-10] MEDS: pantoprazole 40 mg SDV IVP ×2 (09:39→20:59)
[2022-08-10] MEDS: sodium chloride 0.9% 1,000 ML 150 ML IV ×3 (09:39→22:51)
[2022-08-10] MEDS: enoxaparin 40 mg/0.4 mL Syringe SUBCUT (09:40)
[2022-08-10 10:28] LABS: Magnesium 2.1 mg/dL (1.7-2.3); Thyroid Stimulating Hormone 2.35 uIU/mL (0.27-4.20); Triglycerides 102 mg/dL (0-150)
[2022-08-11] VITALS (33 sets, daily range): BP systolic 106–154; BP diastolic 66–101; PULSE 60–99; RESP 12–24; TEMP 36.3–36.6; O2SAT 90–98
[2022-08-11] MEDS: HYDROmorphone 1 mg/mL INJ 1 mL 0.5 MG IVP ×8 (01:46→22:49)
[2022-08-11 03:27] LABS: Basophils % 0.3 %; Eosinophils # 0.1 10^3/uL (0.0-0.8); Eosinophils % 0.5 %; Hematocrit 43.1 % (42.0-52.0); Hemoglobin 13.8 g/dL (11.7-16.6); Lymphocytes # 0.5 10^3/uL (0.8-4.8); Mean Corpuscular Hemoglobin 34.8 pg (28.0-34.0); Mean Corpuscular Volume 108.8 fl (80-94); Mean Platelet Volume 10.4 fL (7.4-10.4); Monocytes # 0.8 10^3/uL (0.2-0.9); Monocytes % 7.6 %; Neutrophils # 8.82 10^3/uL (1.8-7.7); Neutrophils % 86.1 %; Nucleated Red Blood Cells % 0 %; Platelet Count 223 10^3/cmm (130-400); Red Blood Count 3.96 10^6/uL (4.1-5.3); Red Cell Distribution Width 14.3 % (12.1-15.1); White Blood Count 10.2 10^3/uL (4.0-10.0)
[2022-08-11 03:47] LABS: INR 1.02 (0.8-1.2)
[2022-08-11 03:54] LABS: Alanine Aminotransferase 119 U/L (0-41); Albumin Level 3.6 g/dL (3.5-5.2); Alkaline Phosphatase 145 U/L (40-130); Aspartate Amino Transferase 101 U/L (0-40); Blood Urea Nitrogen 7 mg/dL (6-20); Calcium 8.6 mg/dL (8.5-10.5); Carbon Dioxide 25 mmol/L (22-29); Chloride 105 mmol/L (98-107); Creatinine Clr Calc Pharmacy 168.6583; Globulin 2.3 g/dL (1.3-4.6); Glomerular Filtration Rate 128.3 mL/min (90-130); Glucose 73 mg/dL (65-115); Magnesium 1.9 mg/dL (1.7-2.3); Osmolality Calculated 289 mOsm/kg (285-295); Sodium 141 mmol/L (136-145); Total Bilirubin 4.5 mg/dL (0.15-1.2); Total Protein 5.9 g/dL (6.6-8.7)
[2022-08-11 04:18] LABS: Lipase 1366 U/L (13-60)
[2022-08-11] MEDS: sodium chloride 0.9% 1,000 ML 150 ML IV ×3 (04:52→17:00)
[2022-08-11] MEDS: piperacillin-tazobactam 3.375 GM in sodium chloride 0.9% (plus) 50 ML IV ×3 (08:00→22:49)
[2022-08-11] MEDS: enoxaparin 40 mg/0.4 mL Syringe SUBCUT (08:48)
[2022-08-11] MEDS: pantoprazole 40 mg SDV IVP ×2 (08:48→20:21)
[2022-08-11] MEDS: atenolol 50 mg Tablet PO (08:48)
[2022-08-11] MEDS: ondansetron 2 mg/ML SDV 2 mL 4 MG IVP ×2 (08:57→19:22)
--- NOTE | 2022-08-11 09:47 | PM.PN ---
Subjective Subjective: Albert reports his abdominal pain is about the same. He is not nauseous currently. He wonders if he could have some clear liquids. Medications: Reviewed: Yes Vitals/I&O/Wt Last Vital Signs Temp 97.5 F L 08/11/22 04:00 Pulse 94 08/11/22 06:00 Resp 17 08/11/22 08:00 BP 141/89 08/11/22 06:00 Pulse Ox 95 08/11/22 08:00 O2 Del Method 08/11/22 04:00 O2 Flow Rate 1 08/11/22 04:00 08/10/22 08/11/22 08/11/22 22:59 06:59 14:59 Intake Total 2055 / 3105 1022.5 / 4127.5 Output Total 550 / 1450 875 / 2325 Balance 1505 / 1655 147.5 / 1802.5 Weight last 48 hrs Weight 87.5 kg Weight 99.79 kg Weight 99.79 kg Physical Exam Narrative: General exam is a white male, complains of abdominal pain but does appear somewhat more comfortable than yesterday. Neck is supple no lymphadenopathy thyromegaly Cardiovascular regular rate and rhythm without murmur Lungs clear no wheezing or crackles Abdomen is soft but tender positive bowel sounds. No obvious organomegaly Extremities no cyanosis clubbing or edema, cap refill brisk Skin no rash Data 08/11/22 03:02 08/11/22 03:02 A&P Assessment and plan (1) Acute pancreatitis: Patient presents with acute pancreatitis. Etiology not completely clear but could include alcohol, lisinopril. Doubt gallstone pancreatitis at this point but cannot completely exclude. Triglyceride level is normal He appears somewhat improved. Initiate clear liquids Continue pain control Continue hydration Close follow-up of electrolytes Continue Protonix IV With bilirubin increasing cannot completely rule out passed gallstone. We will go ahead and add Zosyn for now. (2) Cholelithiasis: Cholelithiasis has been noted No evidence of duct obstruction Will involve surgery now in case gallbladder operation is needed in the near future Plan History of hypertension. He reports he intermittently takes medication for this. Other medical problems as noted in past medical history Full code Lovenox for DVT prophylaxis Attestations Medical Necessity Statement*: Needs continued hospitalization for pain control, hydration in this patient with pancreatitis. 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
--- NOTE | 2022-08-11 18:34 | P.CONIM_ITS ---
Providers/Reason For Consult Consulting Physician/Specialty*: Dr. Chandan Vargas, DO/General surgery Reason for Consult*: Abdominal pain Attending Physician: Brody España MD Primary Care Provider: Jamia Rod History of Present Illness History of Present Illness Albert Rangel is a 37 year old male who presented to the hospital a 4-day history of epigastric abdominal pain nausea and vomiting. The nausea and vomiting actually started first. His pain is dull and constant, located in the epigastrium and radiating to both flanks and the lower abdomen. Even drinking w ater makes the pain worse. Nothing makes it better. Denies any hematemesis, hematochezia and/or melena. He reports he has not had any alcohol in over 2 weeks. MRCP shows cholelithiasis without biliary ductal dilatation and pancreatitis Review of Systems General: Reports: 10 or more systems reviewed and unremarkable except in HPI and below Medications/Allergies Home Medications Medication Instructions Recorded Confirmed Last Taken Type atenolol 25 mg tablet 50 mg PO DAILY 06/23/21 08/10/22 07/08/21 History lisinopril 20 mg tablet 20 mg PO DAILY 06/23/21 08/10/22 07/07/21 History Allergies Allergy/AdvReac Type Severity Reaction Status Date / Time No Known Allergies Allergy Verified 11/02/21 08:18 Current Medications Generic Name Dose Route Start Last Admin Trade Name Freq PRN Reason Stop Dose Admin Atenolol 50 mg 08/11/22 09:00 08/11/22 08:48 Atenolol 50 Mg Tablet PO 50 mg DAILY OLIVIA Administration Enoxaparin Sodium 40 mg 08/10/22 09:15 08/11/22 08:48 Enoxaparin 40 Mg/0.4 Ml Syringe SUBCUT 40 mg Q24H OLIVIA Administration Hydromorphone HCl 0.5 mg 08/10/22 13:11 08/11/22 16:59 Hydromorphone 1 Mg/Ml Inj 1 Ml IVP 0.5 mg Q3H PRN Administration PAIN Sodium Chloride 1,000 mls @ 150 mls/hr 08/10/22 09:15 08/11/22 17:00 Sodium Chloride 0.9% IV 150 mls/hr .Q6H40M OLIVIA Administration Piperacillin Sod/Tazobactam 50 mls @ 12.5 mls/hr 08/11/22 07:00 08/11/22 18:10 Sod 3.375 gm/ Sodium Chloride IV Infused Q8H OLIVIA Infusion Protocol As Directed Ondansetron HCl 4 mg 08/10/22 09:02 08/11/22 08:57 Ondansetron 2 Mg/Ml Sdv 2 Ml IVP 4 mg Q6H PRN Administration NAUSEA AND VOMITING Pantoprazole Sodium 40 mg 08/10/22 09:15 08/11/22 08:48 Pantoprazole 40 Mg Sdv IVP 40 mg Q12H OLIVIA Administration PFSH Acute PFSH: Medical History Cholelithiasis Hypertension Surgical History History of foot surgery Family History Other Cancer Social History Smoking and tobacco status: current every day smoker Alcohol intake: current Vitals/I&O/Wt Last Vital Signs Temp 97.8 F 08/11/22 14:00 Pulse 61 08/11/22 16:00 Resp 18 08/11/22 16:59 BP 114/72 08/11/22 16:00 Pulse Ox 96 08/11/22 16:59 O2 Del Method 08/11/22 15:56 O2 Flow Rate 1 08/11/22 04:00 08/11/22 08/11/22 08/11/22 06:59 14:59 22:59 Intake Total 1022.5 / 4127.5 1830 / 1830 890 / 2720 Output Total 875 / 2325 800 / 800 400 / 1200 Balance 147.5 / 1802.5 1030 / 1030 490 / 1520 Weight last 48 hrs Weight 192 lb 14.472 oz Weight 220 lb Weight 220 lb Physical Exam Narrative: General : Patient is well developed , no acute distress, oriented x3 Head : Normal cephalic, a-traumatic. Ears : Pinnae and external canal are normal. Hearing is normal. Eyes : PERRLA, Sclera and injection are normal. No conjunctival discharge. Nose : Mucous membranes are without erythema. Throat : buccal mucosa is normal, gums are without significant recession or hypertrophy. Lungs : Equal chest rise bilaterally, no use of accessory muscles, trachea is midline. Cor : Rate and rhythm are normal. Abdomen : Soft, ND, tender epigastrium, no g/r/m Extremities : No edema, no cyanosis or clubbing, dorsalis pedis pulses are present bilaterally, non-tender to palpation of calves. Upper extremities are normal bilaterally. Back : non-tender to palpation, no CVA tenderness. Neuro : CN II - XII intact, Upper and lower extremities have equal and full strength Data 08/11/22 03:02 08/11/22 03:02 A&P Assessment and plan (1) Acute pancreatitis: (2) Cholelithiasis: Plan His pancreatitis may be due to something idiopathic, EtOH or lisinopril. It is unlikely this is secondary to choledocholithiasis, as there was no stone or ductal dilatation on MRCP. Recommend IV fluids and n.p.o. until pain improves. Then start clear liquids. His bilirubin did trend up today, which is somewhat unexpected. I will trend this tomorrow. 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
[2022-08-12] VITALS (30 sets, daily range): BP systolic 113–167; BP diastolic 79–105; PULSE 55–85; RESP 9–23; TEMP 36.7–36.9; O2SAT 90–97
[2022-08-12] MEDS: sodium chloride 0.9% 1,000 ML 150 ML IV ×3 (00:22→17:28)
[2022-08-12] MEDS: HYDROmorphone 1 mg/mL INJ 1 mL 0.5 MG IVP ×8 (01:55→23:35)
[2022-08-12 02:58] LABS: Basophils % 0.3 %; Eosinophils # 0.2 10^3/uL (0.0-0.8); Hematocrit 40.1 % (42.0-52.0); Hemoglobin 12.9 g/dL (11.7-16.6); Lymphocytes # 0.6 10^3/uL (0.8-4.8); Lymphocytes % 6.5 %; Mean Corpuscular HGB Conc 32.2 g/dL (30.0-36.0); Mean Corpuscular Hemoglobin 35.5 pg (28.0-34.0); Mean Corpuscular Volume 110.5 fl (80-94); Mean Platelet Volume 10.6 fL (7.4-10.4); Monocytes # 1.2 10^3/uL (0.2-0.9); Neutrophils # 7.78 10^3/uL (1.8-7.7); Neutrophils % 78.8 %; Nucleated Red Blood Cells % 0 %; Platelet Count 192 10^3/cmm (130-400); Red Blood Count 3.63 10^6/uL (4.1-5.3); Red Cell Distribution Width 13.9 % (12.1-15.1); White Blood Count 9.9 10^3/uL (4.0-10.0)
[2022-08-12] MEDS: ondansetron 2 mg/ML SDV 2 mL 4 MG IVP (03:24)
[2022-08-12 06:00] LABS: Alanine Aminotransferase 92 U/L (0-41); Albumin Level 3.1 g/dL (3.5-5.2); Alkaline Phosphatase 131 U/L (40-130); Aspartate Amino Transferase 58 U/L (0-40); Blood Urea Nitrogen 6 mg/dL (6-20); Calcium 8.5 mg/dL (8.5-10.5); Carbon Dioxide 28 mmol/L (22-29); Chloride 99 mmol/L (98-107); Globulin 2.8 g/dL (1.3-4.6); Glomerular Filtration Rate 189.2 mL/min (90-130); Glucose 80 mg/dL (65-115); Osmolality Calculated 273 mOsm/kg (285-295); Sodium 133 mmol/L (136-145); Total Bilirubin 5.8 mg/dL (0.15-1.2); Total Protein 5.9 g/dL (6.6-8.7)
[2022-08-12] MEDS: piperacillin-tazobactam 3.375 GM in sodium chloride 0.9% (plus) 50 ML IV ×3 (06:02→23:12)
--- NOTE | 2022-08-12 08:21 | PM.PN ---
Subjective Subjective: Patient reports he still has significant pain, but it is better than on admission. Had some nausea when he tried to drink some fluids yesterday. Somewhat better today. Medications: Reviewed: Yes Vitals/I&O/Wt Last Vital Signs Temp 98.1 F 08/12/22 07:00 Pulse 65 08/12/22 08:00 Resp 17 08/12/22 08:00 BP 167/105 08/12/22 08:00 Pulse Ox 93 08/12/22 08:00 O2 Del Method 08/12/22 07:00 O2 Flow Rate 2 08/12/22 04:00 08/11/22 08/12/22 08/12/22 22:59 06:59 14:59 Intake Total 1010 / 2840 1250 / 4090 1000 / 1000 Output Total 500 / 1300 750 / 2050 300 / 300 Balance 510 / 1540 500 / 2040 700 / 700 Weight last 48 hrs Weight 90 kg Weight 87.5 kg Physical Exam Narrative: General exam is a white male, reports pain, no distress Neck is supple no lymphadenopathy thyromegaly Cardiovascular regular rate and rhythm without murmur Lungs clear no wheezing or crackles Abdomen is soft but tender positive bowel sounds. No obvious organomegaly Extremities no cyanosis clubbing or edema, cap refill brisk Skin no rash Data 08/12/22 02:40 08/12/22 05:27 A&P Assessment and plan (1) Acute pancreatitis: Patient presents with acute pancreatitis. Etiology not completely clear but could include alcohol, lisinopril. Doubt gallstone pancreatitis at this point but cannot completely exclude. Triglyceride level is normal Slow improvement Continue pain control Continue hydration. Reduce rate Close follow-up of electrolytes Continue Protonix IV With bilirubin increasing cannot completely rule out passed gallstone. Continue Zosyn. Bilirubin slightly higher today. (2) Cholelithiasis: Cholelithiasis has been noted No evidence of duct obstruction Appreciate surgical consultation. Concern is he may need cholecystectomy in the near future Plan History of hypertension. He reports he intermittently takes medication for this. Other medical problems as noted in past medical history Full code Lovenox for DVT prophylaxis Attestations Medical Necessity Statement*: Needs continued hospitalization secondary to acute pancreatitis, continued pain, inability to tolerate adequate p.o. currently Coding Level of Care Code Acute Vice President Consulting Services for [facility] Emir Diagnoses Acute pancreatitis K85.90 Cholelithiasis K80.20
[2022-08-12] MEDS: enoxaparin 40 mg/0.4 mL Syringe SUBCUT (09:14)
[2022-08-12] MEDS: thiamine 100 mg Tablet PO (09:14)
[2022-08-12] MEDS: pantoprazole 40 mg SDV IVP ×2 (09:14→20:27)
[2022-08-12] MEDS: folic acid 1 mg Tablet PO (09:14)
[2022-08-12] MEDS: atenolol 50 mg Tablet PO (09:14)
--- NOTE | 2022-08-12 09:25 | US_ITS ---
WS: [id number] Gallbladder and right upper quadrant ultrasound, 08/12/2022 Clinical Data: ABD pain Comparison: None. Findings: The gallbladder shows no sludge and a stone seen 2 days ago were difficult to see on the current exam .. The wall measures 0.3 cm with no pericholecystic fluid. The wall is less thick than 2 days ago. The common bile duct is 0.3 cm and there are no intrahepatic ductal abnormalities. Liver shows no cysts, masses or dilated intrahepatic ducts. The pancreas is obscured by overlying bowel gas but no cyst, pseudocyst, or evidence of pancreatitis is noted. Right kidney measures 9.2 cm and no cyst, masses or hydronephrosis can be seen. The aorta and inferior vena cava show no vascular abnormalities. US/US gall bladder 53528 Impression: 1. Gallstones are difficult to see on the current exam. 2. Gallbladder wall thickening has diminished.
--- NOTE | 2022-08-12 10:33 | PC.CHAP ---
Pastoral Care Encounter/Spiritual Assessment Type of Contact [] Declined cardroom supervisor visit [] Patient/Family/Request visit [] Outpatient visit [] Follow-up visit [] Physician referral [] Code/Alert [x] Routine visit [] Staff referral [] Actively dying [x] Patient sleeping [] Family support [] [] Out of room [] Palliative care [] [] Receiving care in room [] Pre-surgical visit [] Trauma [] Long length of stay [x] ICU visit [] Other: Relational/Emotional Strength [] Patient feels connected with others/family/visitors/staff [] Distress [] Loneliness/isolation [] Abandonment Spirituality of Patient [] Person of Jyotsna [] Attends Orthodoxy of their Jyotsna [] Believes in Prayer [] Reads Bible or Spiritism materials [] There are Spiritual issues to be addressed Store Merchandiser Interventions [x] Prayer [] Active listening [] Non-anxious presence [] Spiritual/emotional support [] Crisis/trauma care [] Spiritual counseling [] Bereavement support [] Provided bereavement packet [] Provided Bible/devotional materials [] Provided toy/stuffed animal, coloring book to patient or family member [] Provided Communion [] Anointing/[place] [] Salvation [x] Completed spiritual assessment [] Other: Impact on Illness or Injury [] Angry [] Fearful [] Anxious [] Often cries [] Exhaustion [] Unable to work [] Unable to attend gnosticism [] Unable to walk/stand [] Unable to read [] Unable to drive [] Unable to eat/drink [] Unable to sleep [] Unable to be with family [] Patient intubated [] Other: Summary Time spent with patient
--- NOTE | 2022-08-12 16:06 | P.PN_ITS ---
Subjective Subjective: Patient reports that his pain has not improved. He still cannot tolerate even drinking water. Vitals/I&O/Wt Last Vital Signs Temp 98.1 F 08/12/22 07:00 Pulse 62 08/12/22 13:00 Resp 23 H 08/12/22 14:05 BP 137/84 08/12/22 13:00 Pulse Ox 93 08/12/22 14:05 O2 Del Method 08/12/22 07:00 O2 Flow Rate 2 08/12/22 04:00 08/12/22 08/12/22 08/12/22 06:59 14:59 22:59 Intake Total 1250 / 4090 1450 / 1450 Output Total 750 / 2050 1350 / 1350 500 / 1850 Balance 500 / 2040 100 / 100 -500 / -400 Weight last 48 hrs Weight 198 lb 6.656 oz Weight 192 lb 14.472 oz Physical Exam Narrative: General: No acute distress, awake alert and oriented x3 Abdomen soft, distended, tender to palpation over epigastrium no guarding rebound or masses Data 08/12/22 02:40 08/12/22 05:27 A&P Assessment and plan (1) Acute pancreatitis: (2) Cholelithiasis: Plan His pancreatitis may be due to something idiopathic, EtOH or lisinopril. It is unlikely this is secondary to choledocholithiasis, as there was no stone or ductal dilatation on MRCP. Recommend IV fluids and n.p.o. until pain improves. Then start clear liquids. His bilirubin did trend up again today, which is somewhat unexpected. Repeat ultrasound today showed a 3 mm common bile duct and decrease gallbladder wall thickening. We will continue to trend the bilirubin and treat with IV fluids. 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
--- NOTE | 2022-08-12 23:55 | PC.NURSE ---
Report given to RAJESH Knowles, patient transferred to [facility] via wheelchair.
[2022-08-13] VITALS (16 sets, daily range): BP systolic 149–166; BP diastolic 80–100; PULSE 56–79; RESP 15–19; TEMP 36.7–37.2; O2SAT 92–96; BMI 30.4
[2022-08-13] MEDS: sodium chloride 0.9% 1,000 ML 100 ML IV ×2 (02:37→14:04)
[2022-08-13] MEDS: HYDROmorphone 1 mg/mL INJ 1 mL 0.5 MG IVP ×6 (02:38→19:49)
[2022-08-13 04:56] LABS: Basophils % 0.2 %; Eosinophils # 0.3 10^3/uL (0.0-0.8); Eosinophils % 2.6 %; Hematocrit 41.9 % (42.0-52.0); Hemoglobin 13.7 g/dL (11.7-16.6); Lymphocytes # 0.8 10^3/uL (0.8-4.8); Lymphocytes % 8.5 %; Mean Corpuscular HGB Conc 32.7 g/dL (30.0-36.0); Mean Corpuscular Hemoglobin 35.2 pg (28.0-34.0); Mean Corpuscular Volume 107.7 fl (80-94); Monocytes # 1.2 10^3/uL (0.2-0.9); Monocytes % 12.1 %; Neutrophils # 7.32 10^3/uL (1.8-7.7); Nucleated Red Blood Cells % 0 %; Platelet Count 223 10^3/cmm (130-400); Red Blood Count 3.89 10^6/uL (4.1-5.3); Red Cell Distribution Width 13.6 % (12.1-15.1); White Blood Count 9.6 10^3/uL (4.0-10.0)
[2022-08-13 05:17] LABS: Alanine Aminotransferase 70 U/L (0-41); Albumin Level 3.4 g/dL (3.5-5.2); Alkaline Phosphatase 137 U/L (40-130); Aspartate Amino Transferase 29 U/L (0-40); Blood Urea Nitrogen 4 mg/dL (6-20); Carbon Dioxide 28 mmol/L (22-29); Globulin 3.2 g/dL (1.3-4.6); Glomerular Filtration Rate 153.3 mL/min (90-130); Glucose 76 mg/dL (65-115); Potassium 3.3 mmol/L (3.5-5.1); Total Bilirubin 2.1 mg/dL (0.15-1.2); Total Protein 6.6 g/dL (6.6-8.7)
[2022-08-13] MEDS: piperacillin-tazobactam 3.375 GM in sodium chloride 0.9% (plus) 50 ML IV ×3 (05:49→23:21)
[2022-08-13] MEDS: atenolol 50 mg Tablet PO (08:09)
[2022-08-13] MEDS: folic acid 1 mg Tablet PO (08:09)
[2022-08-13] MEDS: thiamine 100 mg Tablet PO (08:09)
[2022-08-13] MEDS: potassium chloride ER 20 mEq Tablet 40 MEQ PO (09:11)
[2022-08-13] MEDS: enoxaparin 40 mg/0.4 mL Syringe SUBCUT (09:12)
[2022-08-13] MEDS: pantoprazole 40 mg SDV IVP ×2 (09:12→19:50)
[2022-08-13 09:55] LABS: Anion Gap 12.3 (5-19); Chloride 98 mmol/L (98-107); Osmolality Calculated 276 mOsm/kg (285-295); Sodium 135 mmol/L (136-145)
[2022-08-13 10:48] LABS: Blood Urea Nitrogen 4 mg/dL (6-20); Calcium 9.1 mg/dL (8.5-10.5); Carbon Dioxide 28 mmol/L (22-29); Chloride 101 mmol/L (98-107); Glomerular Filtration Rate 153.3 mL/min (90-130); Glucose 108 mg/dL (65-115); Osmolality Calculated 281 mOsm/kg (285-295); Sodium 137 mmol/L (136-145)
[2022-08-13 11:06] LABS: Anion Gap 11.2 (5-19); Potassium 3.2 mmol/L (3.5-5.1)
--- NOTE | 2022-08-13 11:23 | PM.PN ---
Subjective Subjective: AST 29 ALT trending down, Total bili 2.1 trending down Lipase 92162 at admission, trended down to 1300 pt complains of epigastric soreness when he eats. He says ice chips and water are ok for now. K 3.2 today. Vitals/I&O/Wt Last Vital Signs Temp 98.7 F 08/13/22 07:45 Pulse 68 08/13/22 07:45 Resp 19 H 08/13/22 09:10 BP 156/87 08/13/22 07:45 Pulse Ox 92 08/13/22 07:45 O2 Del Method 08/13/22 07:45 O2 Flow Rate 2 08/12/22 04:00 08/12/22 08/13/22 08/13/22 22:59 06:59 14:59 Intake Total 1080 / 3530 1151.667 / 4681.667 290 / 290 Output Total 900 / 2250 1725 / 3975 550 / 550 Balance 180 / 1280 -573.333 / 706.667 -260 / -260 Weight last 48 hrs Weight 90.809 kg Weight 90.9 kg Weight 90.832 kg Weight 90 kg Physical Exam Narrative: General: No acute distress, awake alert and oriented x3 Abdomen soft, mildly distended, no guarding. mildly tender to palpation at epigastric region. Rest of exam, no pain to palpation. BS normoactive. Lungs CTA b/l Data 08/13/22 04:30 08/13/22 09:30 A&P Assessment and plan (1) Acute pancreatitis: Patient presents with acute pancreatitis. Etiology not completely clear but could include alcohol, lisinopril. Doubt gallstone pancreatitis at this point but cannot completely exclude. Triglyceride level is normal Slow improvement Continue pain control Continue hydration. Reduce rate Close follow-up of electrolytes Continue Protonix IV Continue Zosyn. Bilirubin trending down today. AST normalized. ALT trending down Continue ice chips and water. (2) Cholelithiasis: Cholelithiasis has been noted No evidence of duct obstruction Appreciate surgical consultation. Concern is he may need cholecystectomy in the near future Plan History of hypertension. He reports he intermittently takes medication for this. Other medical problems as noted in past medical history Full code Lovenox for DVT prophylaxis Attestations Medical Necessity Statement*: Patient requires multiple more nights in the hospital for IV fluids. still unable to tolerate a diet. Coding Level of Care Code Acute Metal Lather for [facility] Emir Diagnoses Acute pancreatitis K85.90 Cholelithiasis K80.20
--- NOTE | 2022-08-13 14:29 | PM.PN ---
Subjective Subjective: Patient reports that his pain has not improved. He had 2 bites of Jell-O this morning for having too much pain.. Vitals/I&O/Wt Last Vital Signs Temp 98.1 F 08/13/22 11:36 Pulse 59 L 08/13/22 11:36 Resp 18 08/13/22 12:45 BP 149/83 08/13/22 11:36 Pulse Ox 96 08/13/22 11:36 O2 Del Method 08/13/22 11:36 O2 Flow Rate 2 08/12/22 04:00 08/12/22 08/13/22 08/13/22 22:59 06:59 14:59 Intake Total 1080 / 3530 1151.667 / 4681.667 1410 / 1410 Output Total 900 / 2250 1725 / 3975 1200 / 1200 Balance 180 / 1280 -573.333 / 706.667 210 / 210 Weight last 48 hrs Weight 200 lb 3.2 oz Weight 200 lb 6.4 oz Weight 200 lb 4 oz Weight 198 lb 6.656 oz Physical Exam Narrative: General: No acute distress, awake alert and oriented x3 Abdomen soft, distended, tender to palpation over epigastrium no guarding rebound or masses Data 08/13/22 04:30 08/13/22 09:30 A&P Assessment and plan (1) Acute pancreatitis: (2) Cholelithiasis: Plan His pancreatitis may be due to something idiopathic, EtOH or lisinopril. It is unlikely this is secondary to choledocholithiasis, as there was no stone or ductal dilatation on MRCP. Bilirubin is downtrending today. IV fluids at at least 150 cc/h for pancreatitis. Continue with clear liquids. 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
[2022-08-13] MEDS: sodium chloride 0.9% 1,000 ML 175 ML IV ×2 (19:50→23:20)
[2022-08-13] MEDS: morphine 4 mg/mL SDV 1 mL 2 MG IVP (23:20)
--- NOTE | 2022-08-13 23:27 | PC.NURSE ---
Dr. Cutler notified of heart rate running in the 50s, dropping down to as low as 45 at times. Patient is asking for PRN Dialudid. Ordered to hold of on Dilaudid at this time. PRN Morphine ordered.
[2022-08-14] VITALS (14 sets, daily range): BP systolic 112–178; BP diastolic 66–102; PULSE 50–76; RESP 16–20; TEMP 36.7–36.9; O2SAT 90–99
--- NOTE | 2022-08-14 01:05 | PC.NURSE ---
Rounded on patient at 0000 and 0100 to reassess pain. Patient was resting in bed with eyes closed upon both rounds. Will continue to round and reassess pain as needed. Heart rate still running 40s-50s on monitor.
--- NOTE | 2022-08-14 01:11 | PC.NURSE ---
Addendum entered by Eleni Mclean RN 08/14/22 01:32: PRN Dilaudid given per patient request. Original Note: This nurse entered patient's room to assess IV site and fluids. When patient was awoken by this nurse, heart rate up to 70s on monitor.
[2022-08-14] MEDS: HYDROmorphone 1 mg/mL INJ 1 mL 0.5 MG IVP ×2 (01:26→05:36)
--- NOTE | 2022-08-14 03:39 | PC.NURSE ---
Dr. Cutler notified that patient received 0.5 mg Dialudid at 0130 and is c/o pain 03/06. Blood pressure 165/102 and heart rate in the 50s. 5 mg Hydralazine IV x1 ordered.
[2022-08-14] MEDS: hyDRALAzine 20 mg/mL INJ 1 mL 5 MG IVP (03:46)
[2022-08-14] MEDS: sodium chloride 0.9% 1,000 ML 175 ML IV ×4 (05:35→23:47)
[2022-08-14] MEDS: piperacillin-tazobactam 3.375 GM in sodium chloride 0.9% (plus) 50 ML IV ×3 (05:36→23:19)
[2022-08-14 05:50] LABS: Blood Urea Nitrogen 3 mg/dL (6-20); Calcium 8.7 mg/dL (8.5-10.5); Carbon Dioxide 28 mmol/L (22-29); Chloride 101 mmol/L (98-107); Glomerular Filtration Rate 153.3 mL/min (90-130); Glucose 84 mg/dL (65-115); Osmolality Calculated 280 mOsm/kg (285-295); Sodium 137 mmol/L (136-145)
[2022-08-14] MEDS: folic acid 1 mg Tablet PO (08:02)
[2022-08-14] MEDS: atenolol 50 mg Tablet PO (08:02)
[2022-08-14] MEDS: thiamine 100 mg Tablet PO (08:02)
[2022-08-14 08:26] LABS: Alanine Aminotransferase 45 U/L (0-41); Albumin Level 3.1 g/dL (3.5-5.2); Alkaline Phosphatase 113 U/L (40-130); Aspartate Amino Transferase 18 U/L (0-40); Total Bilirubin 1.4 mg/dL (0.15-1.2); Total Protein 6.1 g/dL (6.6-8.7)
[2022-08-14] MEDS: pantoprazole 40 mg SDV IVP ×2 (09:02→20:02)
[2022-08-14] MEDS: ketorolac 30 mg/mL INJ 15 MG IVP (09:02)
[2022-08-14] MEDS: enoxaparin 40 mg/0.4 mL Syringe SUBCUT (09:03)
--- NOTE | 2022-08-14 09:08 | P.PN_ITS ---
Subjective Subjective: Did not tolerate clear liquid diet yesterday. States that he is hungry and wishes to advance diet today. We will start him on a full liquid diet. He does however complain of the right lower quadrant pain today. States that pain has moved from the epigastric into the right lower quadrant area. There is no corinne tenderness on palpation, no rebound or guarding in this area. He is passing gas but complains of constipation. Medications: Reviewed: Yes Vitals/I&O/Wt Last Vital Signs Temp 98.3 F 08/14/22 07:37 Pulse 58 L 08/14/22 07:37 Resp 16 08/14/22 07:37 BP 163/85 08/14/22 07:37 Pulse Ox 98 08/14/22 07:37 O2 Del Method 08/14/22 07:37 O2 Flow Rate 2 08/12/22 04:00 08/13/22 08/14/22 08/14/22 22:59 06:59 14:59 Intake Total 1097.5 / 2554.167 1662.5 / 4216.667 Output Total 1475 / 2675 1100 / 3775 425 / 425 Balance -377.5 / -120.833 562.5 / 441.667 -425 / -425 Weight last 48 hrs Weight 90.855 kg Weight 90.809 kg Weight 90.9 kg Weight 90.832 kg Physical Exam Narrative: General: No acute distress, AO x3 HEENT: PERRLA, pupils bilaterally equal and reactive, pallors not present Chest: Normal vesicular breath sounds, no added sounds, equal good air entry bilaterally CVS: S1-S2 regular, no murmurs, no tachycardia, no gallops, no rubs Abdomen: Soft, no gross tenderness, no organomegaly Neuro: No focal deficits, no facial deformity, AO x3, power 5/5 in all limbs Data 08/13/22 04:30 08/14/22 05:05 A&P Assessment and plan (1) Acute pancreatitis: Patient presents with acute pancreatitis. Etiology not completely clear but could include alcohol, lisinopril. Doubt gallstone pancreatitis at this point. Triglyceride level is normal Slow improvement Continue pain control. Developing constipation which may be contributed by opiates. Also possible he may have a component of ileus from the pancreatitis. Will check abdominal x-ray. Start senna Colace. Continue hydration. Reduce rate Close follow-up of electrolytes Continue Protonix IV Continue Zosyn. Bilirubin trending down today. AST normalized. ALT trending down Has an appetite, wishes to try advancing diet to full liquid today (2) Cholelithiasis: Cholelithiasis has been noted No evidence of duct obstruction Appreciate surgical consultation. Concern is he may need cholecystectomy in the near future Plan History of hypertension. He reports he intermittently takes medication for this. Other medical problems as noted in past medical history Full code Lovenox for DVT prophylaxis Attestations Medical Necessity Statement*: Trial of advancing diet today, started Toradol for optimization of pain control, monitor with these changes Coding Level of Care Code Acute Service Delivery Manager for [facility] Diagnoses Acute pancreatitis K85.90 Cholelithiasis K80.20
--- NOTE | 2022-08-14 09:16 | XRR_ITS ---
PROCEDURE INFORMATION: Exam: XR Abdomen Exam date and time: 08/14/2022 9:23 AM Age: 37 years old Clinical indication: Abdominal pain; Additional info: Evaluate for ileus TECHNIQUE: Imaging protocol: Radiologic exam of the abdomen. Views: Frontal supine view of the abdomen. 1 View. COMPARISON: MR MRCP [id number] 08/10/2022 6:10 AM FINDINGS: Gastrointestinal tract: Non-specific, nonobstructive bowel gas pattern. The lateral most portion of the left hemiabdomen is not fully included on the image. Bones/joints: No significant osseous abnormality. XR/XR abdomen 1V* [id number] IMPRESSION: No acute findings.
[2022-08-14] MEDS: sennosides-docusate Tablet 1 TAB PO ×2 (15:05→17:24)
--- NOTE | 2022-08-14 15:50 | ECG_ITS ---
[facility] Test Date: 2022-08-14 Pat Name: Albert Rangel Department: Room: 251 Gender: Male Shroud Line Tier: : 1985 Requested By: Anne Marie Tello Order Number: [id number] Leann MD: Pradip Bey M.D. Measurements Intervals [place] Rate: 47 P: 3 GA: 138 QRS: 14 QRSD: 106 T: 34 QT: 426 QTc: 378 Interpretive Statements SINUS BRADYCARDIA NONSPECIFIC T-WAVE ABNORMALITY No previous ECG available for comparison Electronically Signed On 08-15-2022 6:21:31 VIBRATING SCREEN OPERATOR by Pradip Bey M.D. [id number]
[2022-08-14 17:28] LABS: Troponin(5th) Baseline 6 ng/L (0-15)
--- NOTE | 2022-08-14 18:00 | ECG_ITS ---
[facility] Test Date: 2022-08-14 Pat Name: Albert Rangel Department: Room: 251 Gender: Male Ski Molder: : 1985 Requested By: Anne Marie Tello Order Number: [id number] Leann MD: Pradip Bey M.D. Measurements Intervals [place] Rate: 50 P: 5 WA: 147 QRS: 12 QRSD: 105 T: 30 QT: 431 QTc: 397 Interpretive Statements SINUS BRADYCARDIA Compared to ECG 08/14/2022 15:56:43 T-wave abnormality no longer present Electronically Signed On 08-15-2022 6:21:22 ROLL EXAMINER by Pradip Bey M.D. [id number]
--- NOTE | 2022-08-14 19:12 | PM.PN ---
Subjective Subjective: Patient reports that his pain is much improved. He was able to eat solid food today without any pain. Denies nausea or vomiting Vitals/I&O/Wt Last Vital Signs Temp 98.2 F 08/14/22 15:56 Pulse 53 L 08/14/22 17:56 Resp 16 08/14/22 15:56 BP 139/76 08/14/22 16:12 Pulse Ox 95 08/14/22 15:56 O2 Del Method 08/14/22 15:56 O2 Flow Rate 2 08/12/22 04:00 08/14/22 08/14/22 08/14/22 06:59 14:59 22:59 Intake Total 1662.5 / 4216.667 1770 / 1770 1044.583 / 2814.583 Output Total 1100 / 3775 425 / 425 700 / 1125 Balance 562.5 / 969.126 6691 / 1345 344.583 / 1689.583 Weight last 48 hrs Weight 200 lb 4.8 oz Weight 200 lb 3.2 oz Weight 200 lb 6.4 oz Weight 200 lb 4 oz Physical Exam Narrative: General: No acute distress, awake alert and oriented x3 Abdomen soft, distended, nontender no guarding rebound or masses Data 08/13/22 04:30 08/14/22 05:05 A&P Assessment and plan (1) Acute pancreatitis: (2) Cholelithiasis: Plan His pancreatitis may be due to something idiopathic, EtOH or lisinopril. It is unlikely this is secondary to choledocholithiasis, as there was no stone or ductal dilatation on MRCP. Bilirubin is downtrending today. Regular diet. Surgically stable for discharge no acute surgical intervention Attestations Medical Necessity Statement*: Further hospitalization per hospitalist Coding Level of Care Code Acute Agency Appointments Supervisor for [facility] Diagnoses Acute pancreatitis K85.90 Cholelithiasis K80.20
[2022-08-14 22:38] LABS: Troponin 5 6HR Delta 0 ng/L (0-12)
[2022-08-15] VITALS: BP 175/90; PULSE 52; RESP 19; TEMP 37.1; O2SAT 96
[2022-08-15 04:00] VITALS: BP 184/88; PULSE 52; RESP 24; TEMP 36.8; O2SAT 97
[2022-08-15] MEDS: sodium chloride 0.9% 1,000 ML 175 ML IV (05:31)
[2022-08-15] MEDS: piperacillin-tazobactam 3.375 GM in sodium chloride 0.9% (plus) 50 ML IV (05:31)
[2022-08-15] MEDS: ketorolac 30 mg/mL INJ 15 MG IVP (05:39)
[2022-08-15 05:42] VITALS: PULSE 74
[2022-08-15 07:42] VITALS: BP 177/90; PULSE 52; RESP 16; TEMP 36.8; O2SAT 97
[2022-08-15] MEDS: folic acid 1 mg Tablet PO (09:29)
[2022-08-15] MEDS: thiamine 100 mg Tablet PO (09:29)
[2022-08-15] MEDS: atenolol 50 mg Tablet 25 MG PO (09:30)
[2022-08-15] MEDS: sennosides-docusate Tablet 1 TAB PO (09:30)
[2022-08-15] MEDS: lisinopril 20 mg Tablet PO (09:30)
[2022-08-15] MEDS: enoxaparin 40 mg/0.4 mL Syringe SUBCUT (09:31)
[2022-08-15] MEDS: pantoprazole 40 mg SDV IVP (09:31)
--- NOTE | 2022-08-15 10:36 | P.DS_ITS ---
Discharge Providers Date of Admission: 08/10/22 06:05 Date of Discharge: August 15, 2022 Attending Provider at Admission: Zoe Cutler MD Attending Provider at Discharge: Coby Olmedo MD Primary Care Provider: Jamia Rod Diagnoses at Discharge Discharge Diagnosis (1) Acute pancreatitis: Status: Resolved (2) Cholelithiasis: Status: Acute Reason for Visit Reason for Visit: ABD\V Brief History: As per Dr. España, Albert Ha Rangel is a 37 year old male presenting with abdominal pain to the emergency department.? Pain started about 3 days ago, but is got progressively worse.? He eventually started vomiting.? No blood in his emesis or stool that he knows of.? Pain is all over the abdomen.? It is into the flanks as well.? He denies ever having pancreatitis before, or pain like this.? He denies any fevers, or new medicines.? He believes his last alcoholic drink was several weeks ago. Hospital Course Hospital Course Patient presents with acute pancreatitis. Etiology not completely clear but could include alcohol, lisinopril.? MRCP completed. No evidence of CBD dilation Triglyceride level is normal [place] trended up but then came back down. Pt improved very slowly. CT abdomen pelvis done. Please see report. Pt to f/u with gen surgery outpatient to discuss cholecystectomy electively. Day of dc pt tolerating gi soft diet. No longer having pain. Pt had BM during stay as well prior to discharge. Had bouts of sinus mable down to low 50's. Home atenolol dose reduced to half DC home in stable condition. Counselled to refrain from alcohol and to ensure f/u with gen surgery. Given instructions to return to ER should he have any worsening of symptoms or new symptoms develop. Physical Exam Narrative: General: No acute distress, AO x3 HEENT: PERRLA, pupils bilaterally equal and reactive, pallors not present Chest: Normal vesicular breath sounds, no added sounds, equal good air entry bilaterally CVS: S1-S2 regular, no murmurs, no tachycardia, no gallops, no rubs Abdomen: Soft, no gross tenderness, non tender to palpation , BS normoactive. Neuro: No focal deficits, no facial deformity, AO x3, power 5/5 in all limbs Discharge Data Studies Completed and Pending Completed Studies During Hospitalization Category Date Time Status CT abdomen pelvis w con* [id number] Stat Cat Scan 08/10/22 03:41 Completed XR abdomen 1V* [id number] Routine Exams 08/14/22 09:16 Completed MR MRCP [id number] Stat MRI 08/10/22 05:15 Completed US gall bladder [id number] Routine Ultrasound 08/12/22 09:25 Completed US gall bladder [id number] Stat Ultrasound 08/10/22 04:34 Completed Radiology Impressions Abdomen/Pelvis CT 08/10/22 03:41 IMPRESSION: Acute pancreatitis without necrosis. Cholangiopancreatography MRI 08/10/22 05:15 IMPRESSION: 1. Acute interstitial pancreatitis. No drainable fluid collections. 2. No biliary dilation or evidence of choledocholithiasis. 3. Mild mural thickening of the gallbladder is favored to be reactive, though HIDA scan would better evaluate for acute cholecystitis. Gallbladder Ultrasound 08/12/22 09:25 Impression: 1. Gallstones are difficult to see on the current exam. 2. Gallbladder wall thickening has diminished. Abdomen X-Ray 08/14/22 09:16 IMPRESSION: No acute findings. Laboratory Results WBC 9.6 10^3/uL (4.0-10.0) 08/13/22 04:30 RBC 3.89 10^6/uL (4.1-5.3) L 08/13/22 04:30 Hgb 13.7 g/dL (11.7-16.6) 08/13/22 04:30 Hct 41.9 % (42.0-52.0) L 08/13/22 04:30 MCV 107.7 fl (80-94) H 08/13/22 04:30 MCH 35.2 pg (28.0-34.0) H 08/13/22 04:30 MCHC 32.7 g/dL (30.0-36.0) 08/13/22 04:30 RDW 13.6 % (12.1-15.1) 08/13/22 04:30 Plt Count 223 10^3/cmm (130-400) 08/13/22 04:30 MPV 11.0 fL (7.4-10.4) H 08/13/22 04:30 Neut % (Auto) 76.0 % 08/13/22 04:30 Lymph % (Auto) 8.5 % 08/13/22 04:30 [place] % (Auto) 12.1 % 08/13/22 04:30 Eos % (Auto) 2.6 % 08/13/22 04:30 Baso % (Auto) 0.2 % 08/13/22 04:30 Neut # (Auto) 7.32 10^3/uL (1.8-7.7) 08/13/22 04:30 Lymph # (Auto) 0.8 10^3/uL (0.8-4.8) 08/13/22 04:30 [place] # (Auto) 1.2 10^3/uL (0.2-0.9) H 08/13/22 04:30 Eos # (Auto) 0.3 10^3/uL (0.0-0.8) 08/13/22 04:30 Baso # (Auto) 0.0 10^3/uL (0.0-0.1) 08/13/22 04:30 Nucleated RBC % (auto) 0 % 08/13/22 04:30 Nucleated RBCs # 0.0 /100WBC 08/13/22 04:30 PT 13.70 SECONDS (12.1-14.9) 08/11/22 03:02 INR 1.02 (0.8-1.2) 08/11/22 03:02 Sodium 137 mmol/L (136-145) 08/14/22 05:05 Potassium 4.0 mmol/L (3.5-5.1) 08/14/22 05:05 Chloride 101 mmol/L (98-107) 08/14/22 05:05 Carbon Dioxide 28 mmol/L (22-29) 08/14/22 05:05 Anion Gap 12.0 (5-19) 08/14/22 05:05 BUN 3 mg/dL (6-20) L 08/14/22 05:05 Creatinine 0.6 mg/dL (0.7-1.2) L 08/14/22 05:05 GFR Calculation 153.3 mL/min (90-130) H 08/14/22 05:05 Glucose 84 mg/dL (65-115) 08/14/22 05:05 Calculated Osmolality 280 mOsm/kg (285-295) L 08/14/22 05:05 Calcium 8.7 mg/dL (8.5-10.5) 08/14/22 05:05 Magnesium 2.0 mg/dL (1.7-2.3) 08/14/22 05:05 Total Bilirubin 1.4 mg/dL (0.15-1.2) H 08/14/22 05:05 Direct Bilirubin 0.80 mg/dL (0.00-0.30) H 08/14/22 05:05 AST 18 U/L (0-40) 08/14/22 05:05 ALT 45 U/L (0-41) H 08/14/22 05:05 Alkaline Phosphatase 113 U/L (40-130) 08/14/22 05:05 Troponin T Baseline 6 ng/L (0-15) 08/14/22 17:00 Troponin T Hi Sens 6Hr 6.00 ng/L (0-15) 08/14/22 21:15 Troponin T Hi Sens 6Hr Delta 0 ng/L (0-12) 08/14/22 21:15 Total Protein 6.1 g/dL (6.6-8.7) L 08/14/22 05:05 Albumin 3.1 g/dL (3.5-5.2) L 08/14/22 05:05 Globulin 3.0 g/dL (1.3-4.6) 08/14/22 05:05 Triglycerides 102 mg/dL (0-150) 08/10/22 03:30 Lipase 1366 U/L (13-60) H 08/11/22 03:02 TSH 2.35 uIU/mL (0.27-4.20) 08/10/22 03:30 Urine Color Yellow (Yellow) 08/10/22 04:30 Urine Appearance Clear (CLEAR) 08/10/22 04:30 Urine pH 6 (5-7) 08/10/22 04:30 Ur Specific [place] 1.010 (1.005-1.030) 08/10/22 04:30 Urine Protein Neg (Negative) 08/10/22 04:30 Urine Glucose (UA) Norm (Normal) 08/10/22 04:30 Urine Ketones Negative (Negative) 08/10/22 04:30 Urine Blood Neg (Negative) 08/10/22 04:30 Urine Nitrate Negative (Negative) 08/10/22 04:30 Urine Bilirubin Neg (Negative) 08/10/22 04:30 Urine Urobilinogen Norm mg/dL (Negative) 08/10/22 04:30 Ur Leukocyte Esterase Negative (Negative) 08/10/22 04:30 Vitals Last Vital Signs Temp 98.3 F 08/15/22 07:42 Pulse 52 L 08/15/22 07:42 Resp 16 08/15/22 07:42 BP 177/90 08/15/22 07:42 Pulse Ox 97 08/15/22 07:42 O2 Del Method 08/15/22 07:42 O2 Flow Rate 2 08/12/22 04:00 Discharge Plan Discharge Patient Disposition: Home Condition: Stable Prescriptions: New folic acid 1 mg Tablet 1 mg PO DAILY 30 Days Qty: 30 0RF Vitamin B-1 (mononitrate) 100 mg Tablet 100 mg PO DAILY 30 Days Qty: 30 0RF Continued lisinopril 20 mg tablet 20 mg PO DAILY Changed atenolol 25 mg tablet 25 mg PO DAILY 30 Days Qty: 30 0RF Discharge Orders: Discharge Order (Routine); Ordered 08/15/22 Ordered By: Coby Olmedo Referrals: Chandan Vargas DO [Physician] - 08/30/22 9:50 am Pradeep Benito MD [Referring] - 08/16/22 4:30 pm (You will need to be there early at 4:00pm to fill out paperwork prior your appointment. ) Discharge Diet: GI Soft Discharge Activity: Resume usual activity Patient Instructions: Thiamine (By mouth), Folic Acid (By mouth), Cholecystitis (GEN), Pancreatitis (GEN), Opioid Safety Activity Restrictions/Additional Instructions: Your heart rate has been on lower side. I have adjusted your atenolol to 25 mg daily. Please continue your lisinopril as previously taking at home and follow up with your primary care doctor and surgery as advised. Please return to ER if you develop any worsening symptoms or develop any new symptoms. Please do not ignore abdominal pain if you develop any. Refrain from alcohol use. Discharge Attestations Time Spent in Discharge Care*: greater than 30 min Quality Metrics Clinical Quality Measures [ No reported AMI, CVA or VTE this stay] Coding Level of Care Code Acute Chg FW DC note Diagnoses Acute pancreatitis K85.90 Cholelithiasis K80.20
[2022-08-15 11:41] VITALS: BP 177/90; PULSE 52; RESP 16; TEMP 36.8; O2SAT 97
== END 2022-08-15 11:42 | disposition home or self-care (01) | DRG 440 ==
LOC: ER 03:43 → ICU 06:06 → MEDSURG 08-12 23:43
PROVIDERS: Emergency Medicine; Internal Medicine; Student in an Organized Health Care Education/Training Program; Admitting Provider Internal Medicine; Emergency Provider Family Medicine; PCP Nurse Practitioner Family; Visit Provider Internal Medicine
DX: K85.90 Acute pancreatitis without necrosis or infection, unspecified (principal); K80.20 Calculus of gallbladder without cholecystitis without obstruction; R00.1 Bradycardia, unspecified; I10 Essential (primary) hypertension; F17.200 Nicotine dependence, unspecified, uncomplicated; K59.03 Drug induced constipation; T40.605A Adverse effect of unspecified narcotics, initial encounter
CPT/HCPCS: 36415; 74018; 74177; 74181; 76705; 80048; 80053; 80076; 81003; 83690; 83735; 84443; 84478; 84484; 85025; 85610; 93005; 96365; 96372; 96375; 99285; C9113; J0360; J1170; J1650; J1885; J2270; J2405; J2543; J7030; Q9967

== ENCOUNTER 2022-08-26 18:18 | Emergency (ER) | payer MEDICAID, SELFPAY ==
[2022-08-26 18:33] VITALS: BP 168/108; PULSE 107; RESP 19; TEMP 36.4; O2SAT 97; BMI 30.4
[2022-08-26 20:28] LABS: Basophils # 0.1 10^3/uL (0.0-0.1); Basophils % 0.7 %; Eosinophils # 0.1 10^3/uL (0.0-0.8); Eosinophils % 1.2 %; Hematocrit 51.2 % (42.0-52.0); Lymphocytes # 2.1 10^3/uL (0.8-4.8); Lymphocytes % 18.8 %; Mean Corpuscular HGB Conc 33.2 g/dL (30.0-36.0); Mean Corpuscular Hemoglobin 33.4 pg (28.0-34.0); Mean Corpuscular Volume 100.6 fl (80-94); Mean Platelet Volume 10.3 fL (7.4-10.4); Monocytes # 0.7 10^3/uL (0.2-0.9); Monocytes % 6.4 %; Neutrophils # 8.21 10^3/uL (1.8-7.7); Neutrophils % 72.6 %; Nucleated Red Blood Cells % 0 %; Platelet Count 478 10^3/cmm (130-400); Red Blood Count 5.09 10^6/uL (4.1-5.3); Red Cell Distribution Width 13.3 % (12.1-15.1); White Blood Count 11.3 10^3/uL (4.0-10.0)
[2022-08-26 20:44] LABS: Lactate (Lactic Acid level) 2.1 mmol/L (0.5-2.2)
[2022-08-26 20:47] LABS: Alanine Aminotransferase 52 U/L (0-41); Albumin Level 4.5 g/dL (3.5-5.2); Alkaline Phosphatase 207 U/L (40-130); Anion Gap 15.4 (5-19); Aspartate Amino Transferase 22 U/L (0-40); Blood Urea Nitrogen 9 mg/dL (6-20); Calcium 10.9 mg/dL (8.5-10.5); Carbon Dioxide 31 mmol/L (22-29); Chloride 95 mmol/L (98-107); Globulin 3.4 g/dL (1.3-4.6); Glucose 123 mg/dL (65-115); Lipase 63 U/L (13-60); Osmolality Calculated 286 mOsm/kg (285-295); Potassium 3.4 mmol/L (3.5-5.1); Sodium 138 mmol/L (136-145); Total Bilirubin 1.2 mg/dL (0.15-1.2); Total Protein 7.9 g/dL (6.6-8.7)
--- NOTE | 2022-08-27 01:22 | USR_ITS ---
PROCEDURE INFORMATION: Exam: US Abdomen, Limited; Right Upper Quadrant Exam date and time: 08/27/2022 1:44 AM Age: 37 years old Clinical indication: Abdominal pain; Localized; Right upper quadrant (ruq); Additional info: Ruq pain TECHNIQUE: Imaging protocol: Real time ultrasound of the abdomen with image documentation. Limited exam focused on the right upper quadrant. COMPARISON: US gall bladder [id number] 08/12/2022 10:31 AM FINDINGS: Liver: Liver is 17.4 cm in length, echogenic. No focal liver mass is noted. Gallbladder: The gallbladder shows multiple shadowing stones and wall thickening. The wall measures 5 mm. Biliary ducts: No evidence of intrahepatic biliary dilation. No CBD dilation. Pancreas: The pancreas is not well seen due to overlying bowel gas. It shows no focal abnormality, however. Right kidney: Unremarkable. No solid renal mass or hydronephrosis. US/US gall bladder [id number] IMPRESSION: 1. Gallstones with gallbladder wall thickening. Cholecystitis is likely. 2. Large and fatty liver. 3. No CBD dilation.
--- NOTE | 2022-08-27 01:23 | W.ED.ABDPA2 ---
HPI - Abdominal Pain General: Chief Complaint: Abdominal Pain Stated Complaint: abd pain Time Seen by Provider: 08/27/22 01:20 Source: patient Mode of arrival: ambulatory Limitations: no limitations History of Present Illness: 37-year-old male has a history of gallstones along with pancreatitis he states that today after he ate he started having epigastric pain has been hurting for roughly 7 hours he states he had some vomiting as well as pain is currently 5 out of 10 he denies any worsening improving factors currently denies any fevers. Denies any radiation of his pain Associated Symptoms: Reports nausea and vomiting; Denies chills, dysuria and fever(s) Review of Systems Const: Denies: fever(s), chills, body aches or change in appetite Eyes: Denies: blurry vision or eye discomfort ENMT: Denies: throat pain or dental pain Card: Denies: chest pain Resp: Denies: dyspnea GI: Reports: abdominal pain, nausea and vomiting : Denies: dysuria Musc: Denies: neck pain or back pain Skin/Breast: Denies: rash Neuro: Denies: headache(s) Psych: Denies: depression Jean[place]Claude/Lymph: Denies: easy bruising All/Imm: Denies: urticaria PFSH ED PFSH: Medical History Cholelithiasis Hypertension Surgical History History of foot surgery Family History Other Cancer Social History Smoking and tobacco status: current every day smoker Alcohol intake: current Physical Exam Const: COMMON NORMALS: no acute distress, patient oriented x3 and healthy appearing HENMT: COMMON NORMALS: normocephalic and atraumatic HEAD & SCALP: normocephalic and atraumatic Eye: COMMON NORMALS: Equal, round and reactive pupils present and EOMs intact bilaterally PUPIL: Yes Equal, round and reactive pupils present Neck/C-Spine: COMMON NORMALS: full ROM and supple Chest: COMMONS NORMALS: normal inspection of the chest and normal palpation of entire chest wall Resp: COMMON NORMALS: normal respiratory effort, No retractions, No use of accessory muscles and clear to auscultation bilaterally AUSCULTATION: clear to auscultation bilaterally Cardio: COMMON NORMALS: regular rate, regular rhythm and No murmurs present (Cardio) RATE: regular rate RHYTHM: regular rhythm GI: COMMON NORMALS: Normal to inspection, nondistended, normoactive bowel sounds present, Soft to palpation, non-tender and no masses PALPATION: Yes Soft to palpation and Yes Tenderness to palpation present (GI) Details: RUQ Extremity: COMMON NORMALS: normal to inspection and full ROM Neuro: COMMON NORMALS: patient oriented x3, moves all extremities and no focal motor deficits Psych: COMMON NORMALS: mental status grossly normal, Normal thought process present and cooperative THOUGHT PROCESS: Normal thought process present Skin: COMMON NORMALS: no rashes or lesions noted and no wounds GENERAL SKIN EXAM: no rashes or lesions noted Course Vital Signs: Vital signs: Vital Signs Temperature 97.5 F L 08/26/22 18:33 Pulse Rate 107 H 08/26/22 18:33 Respiratory Rate 19 H 08/26/22 18:33 Blood Pressure 168/108 08/26/22 18:33 Pulse Oximetry 97 08/26/22 18:33 Oxygen Delivery Me thod 08/26/22 18:33 MDM - Abdominal Pain Medical Decision Making Patient presents here with abdominal pain likely from cholelithiasis he has no signs of cholecystitis he does have a UTI as well we will place him on antibiotics we will get him follow-up with surgery for further evaluation of his gallstones he is return if worsening he understands agrees to plan. Lab Data 08/26/22 19:54 08/26/22 19:54 Labs/Radiology: Laboratory Results WBC 11.3 10^3/uL (4.0-10.0) H 08/26/22 19:54 RBC 5.09 10^6/uL (4.1-5.3) 08/26/22 19:54 Hgb 17.0 g/dL (11.7-16.6) H 08/26/22 19:54 Hct 51.2 % (42.0-52.0) 08/26/22 19:54 MCV 100.6 fl (80-94) H 08/26/22 19:54 MCH 33.4 pg (28.0-34.0) 08/26/22 19:54 MCHC 33.2 g/dL (30.0-36.0) 08/26/22 19:54 RDW 13.3 % (12.1-15.1) 08/26/22 19:54 Plt Count 478 10^3/cmm (130-400) H 08/26/22 19:54 MPV 10.3 fL (7.4-10.4) 08/26/22 19:54 Neut % (Auto) 72.6 % 08/26/22 19:54 Lymph % (Auto) 18.8 % 08/26/22 19:54 [place] % (Auto) 6.4 % 08/26/22 19:54 Eos % (Auto) 1.2 % 08/26/22 19:54 Baso % (Auto) 0.7 % 08/26/22 19:54 Neut # (Auto) 8.21 10^3/uL (1.8-7.7) H 08/26/22 19:54 Lymph # (Auto) 2.1 10^3/uL (0.8-4.8) 08/26/22 19:54 [place] # (Auto) 0.7 10^3/uL (0.2-0.9) 08/26/22 19:54 Eos # (Auto) 0.1 10^3/uL (0.0-0.8) 08/26/22 19:54 Baso # (Auto) 0.1 10^3/uL (0.0-0.1) 08/26/22 19:54 Nucleated RBC % (auto) 0 % 08/26/22 19:54 Nucleated RBCs # 0.0 /100WBC 08/26/22 19:54 Sodium 138 mmol/L (136-145) 08/26/22 19:54 Potassium 3.4 mmol/L (3.5-5.1) L 08/26/22 19:54 Chloride 95 mmol/L (98-107) L 08/26/22 19:54 Carbon Dioxide 31 mmol/L (22-29) H 08/26/22 19:54 Anion Gap 15.4 (5-19) 08/26/22 19:54 BUN 9 mg/dL (6-20) 08/26/22 19:54 Creatinine 0.9 mg/dL (0.7-1.2) 08/26/22 19:54 GFR Calculation 96.0 mL/min (90-130) 08/26/22 19:54 Glucose 123 mg/dL (65-115) H 08/26/22 19:54 Calculated Osmolality 286 mOsm/kg (285-295) 08/26/22 19:54 Lactate 2.1 mmol/L (0.5-2.2) 08/26/22 19:54 Calcium 10.9 mg/dL (8.5-10.5) H 08/26/22 19:54 Total Bilirubin 1.2 mg/dL (0.15-1.2) 08/26/22 19:54 AST 22 U/L (0-40) 08/26/22 19:54 ALT 52 U/L (0-41) H 08/26/22 19:54 Alkaline Phosphatase 207 U/L (40-130) H 08/26/22 19:54 Total Protein 7.9 g/dL (6.6-8.7) 08/26/22 19:54 Albumin 4.5 g/dL (3.5-5.2) 08/26/22 19:54 Globulin 3.4 g/dL (1.3-4.6) 08/26/22 19:54 Lipase 63 U/L (13-60) H 08/26/22 19:54 Urine Color Dark yellow (Yellow) 08/27/22 01:41 Urine Appearance Clear (CLEAR) 08/27/22 01:41 Urine pH 5 (5-7) 08/27/22 01:41 Ur Specific [place] 1.025 (1.005-1.030) 08/27/22 01:41 Urine Protein Trace (Negative) 08/27/22 01:41 Urine Glucose (UA) Norm (Normal) 08/27/22 01:41 Urine Ketones 1+ (Negative) H 08/27/22 01:41 Urine Blood Neg (Negative) 08/27/22 01:41 Urine Nitrate Negative (Negative) 08/27/22 01:41 Urine Bilirubin 1+ (Negative) H 08/27/22 01:41 Urine Urobilinogen 1 mg/dL (Negative) H 08/27/22 01:41 Ur Leukocyte Esterase 1+ (Negative) H 08/27/22 01:41 Urine RBC 0-4 /hpf (0-2) H 08/27/22 01:41 Urine WBC 25-40 /hpf (0-5) H 08/27/22 01:41 Ur Squamous Epith Cells 0-4 /hpf (0-5) H 08/27/22 01:41 Amorphous Sediment Not Reportable 08/27/22 01:41 Urine Bacteria 4+ /hpf (NONE) H 08/27/22 01:41 Discharge Plan Discharge Patient Disposition: Home Clinical Impression: Cholelithiasis, Acute UTI Condition: Stable Prescriptions: New hydrocodone-acetaminophen 5-325 mg tablet 1 tab PO Q6H PRN (Reason: pain) Qty: 14 0RF cephalexin 500 mg capsule 500 mg PO TID 7 Days Qty: 21 0RF ondansetron 4 mg tablet,disintegrating 4 mg PO Q6H PRN (Reason: nausea and vomiting) Qty: 14 0RF No Action lisinopril 20 mg tablet 20 mg PO DAILY folic acid 1 mg Tablet 1 mg PO DAILY 30 Days Qty: 30 0RF Vitamin B-1 (mononitrate) 100 mg Tablet 100 mg PO DAILY 30 Days Qty: 30 0RF atenolol 25 mg tablet 25 mg PO DAILY 30 Days Qty: 30 0RF Discharge Orders: Discharge ED (Routine); Ordered 08/27/22 Ordered By: Priyanka Claros Referrals: Chandan Vargas DO [Physician] - 1-3 days Jamia Rod FNP [Primary Care Provider] - Discharge Diet: Advance as tolerated Discharge Activity: Resume usual activity Patient Instructions: Cholelithiasis, Biliary Colic (ED), Urinary Tract Infection in Men (ED), Opioid Safety Coding Level of Care Code ED Complaint Evaluation Supervisor for Chg Fwd 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
[2022-08-27] MEDS: morphine 4 mg/mL SDV 1 mL IVP (02:20)
[2022-08-27] MEDS: sodium chloride 0.9% 1,000 ML 999 ML IV (02:20)
[2022-08-27] MEDS: ondansetron 2 mg/ML SDV 2 mL 4 MG IVP (02:20)
[2022-08-27 02:21] LABS: Add Urine Culture? Yes; Add Urine Microscopic? YES; Bacteria Urine 4+ /hpf; Bilirubin Urine 1+ (Negative); Blood Urine Neg (Negative); Glucose Urine UA Norm (Normal); Ketones Urine 1+ (Negative); Leukocyte Esterase Urine 1+ (Negative); Nitrate Urine Negative (Negative); Protein Urine Trace (Negative); RBC Urine 0-4 /hpf (0-2); Specific Gravity, Urine 1.025 (1.005-1.030); Squamous Epithelial Cell Urine 0-4 /hpf (0-5); Urine Appearance Clear (CLEAR); Urine Color Dark Yellow (Yellow); Urobilinogen Urine 1 mg/dL (Negative); WBC Urine 25-40 /hpf (0-5); pH Urine 5 (5-7)
--- NOTE | 2022-08-29 11:45 | DCPLANNER ---
Addendum entered by Miriam Gomez 08/31/22 11:29: Patient had a follow up appointment scheduled with general surgery - patient did attend appointment. Original Note: clinical informatics manager had message to schedule a follow up appointment for patient with general surgery. clinical informatics manager sent patients information to the front office staff at general surgery. Patients information will be printed and reviewed. Clinic will call patient with appointment information.
== END 2022-08-27 03:06 | disposition home or self-care (01) ==
PROVIDERS: Emergency Provider Emergency Medicine; PCP Nurse Practitioner Family
DX: K80.20 Calculus of gallbladder without cholecystitis without obstruction (principal); N39.0 Urinary tract infection, site not specified; I10 Essential (primary) hypertension; F17.210 Nicotine dependence, cigarettes, uncomplicated
CPT/HCPCS: 36415; 76705; 80053; 81001; 83605; 83690; 85025; 87086; 96374; 96375; 99285; J2270; J2405; J7030

== ENCOUNTER 2022-09-23 06:00 | Inpatient (IN) | payer MEDICAID, SELFPAY ==
[2022-09-23] VITALS (26 sets, daily range): BP systolic 126–183; BP diastolic 82–119; PULSE 66–108; RESP 14–20; TEMP 36.1–36.7; O2SAT 89–100; BMI 27.8
--- NOTE | 2022-09-23 06:09 | ECG_ITS ---
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 [email or web address]
[2022-09-23 06:29] LABS: Basophils % 0.4 %; Eosinophils # 0.1 10^3/uL (0.0-0.8); Eosinophils % 1.4 %; Hematocrit 52.7 % (42.0-52.0); Lymphocytes # 0.8 10^3/uL (0.8-4.8); Lymphocytes % 9.9 %; Mean Corpuscular HGB Conc 32.3 g/dL (30.0-36.0); Mean Corpuscular Hemoglobin 32.6 pg (28.0-34.0); Mean Corpuscular Volume 101.2 fl (80-94); Mean Platelet Volume 10.6 fL (7.4-10.4); Monocytes # 0.7 10^3/uL (0.2-0.9); Neutrophils # 6.12 10^3/uL (1.8-7.7); Neutrophils % 78.9 %; Nucleated Red Blood Cells % 0 %; Platelet Count 183 10^3/cmm (130-400); Red Blood Count 5.21 10^6/uL (4.1-5.3); Red Cell Distribution Width 13.8 % (12.1-15.1); White Blood Count 7.8 10^3/uL (4.0-10.0)
[2022-09-23] MEDS: sodium chloride 0.9% 1,000 ML 999 ML IV ×2 (06:33→10:58)
[2022-09-23] MEDS: ondansetron 2 mg/ML SDV 2 mL 4 MG IVP ×2 (06:33→15:15)
--- NOTE | 2022-09-23 06:36 | W.ED.ABDPA2 ---
HPI - Abdominal Pain General: Chief Complaint: Abdominal Pain Stated Complaint: chest pain, burning pain into stomach and back Time Seen by Provider: 09/23/22 06:09 Source: patient Mode of arrival: ambulatory History of Present Illness: 37-year-old male presents to the emergency room with complaint of abdominal pain radiating to his chest and his back, began 3 days ago and is progressively worsened.. Abdominal pain is primarily right upper quadrant. He has a known history of pancreatitis and cholecystitis. He tells me he is scheduled to have a cholecystectomy done soon. MD elicited complaint: abdominal pain Pertinent past history: other (Cholelithiasis) Onset (ago): day(s) (3) Pain Consistency: constant Location: RUQ Severity: severe Quality: cramping Migration to: epigastric and other (Chest) Exacerbating factors: eating Relieving factors: nothing Associated Symptoms: Reports anorexia, bloating, GI cramping, dyspepsia, poor appetite and vomiting; Denies belching, change in bowel habits, change in stool character, chills, coffee ground emesis, constipation, diarrhea, dysuria, excessive flatus, fever(s), heartburn, hematochezia, hematuria, hematemesis, fecal incontinence, loose stools, melena, nausea and syncope Review of Systems Const: Denies: fever(s), chills, fatigue or malaise ENMT: Denies: throat pain, ear or mastoid pain, nasal discharge or nasal congestion Card: Denies: chest pain or syncope Resp: Denies: dyspnea, productive cough or non-productive cough GI: Reports: abdominal pain, vomiting, bloating and GI cramping; Denies: nausea, hematemesis, coffee ground emesis, heartburn, diarrhea, constipation, belching, excessive flatus, fecal incontinence, change in bowel habits, change in stool character, hematochezia or melena : Denies: dysuria or hematuria Skin/Breast: Denies: rash or pruritus PFSH ED PFSH: Medical History (Updated 09/23/22 @ 11:27 by Brody España MD) Cholelithiasis GERD (gastroesophageal reflux disease) Hx of seizure disorder Hypertension Surgical History History of foot surgery Hx of shoulder surgery left shoulder Family History Other Cancer Social History Smoking and tobacco status: current every day smoker Alcohol intake: current Physical Exam Const: GENERAL APPEARANCE: cooperative ORIENTATION/CONSCIOUSNESS: Yes awake, Yes oriented to person, Yes oriented to place and Yes oriented to time HENMT: COMMON NORMALS: normocephalic, atraumatic and hearing grossly normal bilaterally HEAD & SCALP: normocephalic and atraumatic Eye: COMMON NORMALS: Equal, round and reactive pupils present, EOMs intact bilaterally, conjunctivae normal and no scleral icterus CONJUNCTIVA: Yes conjunctivae normal PUPIL: Yes Equal, round and reactive pupils present Neck/C-Spine: COMMON NORMALS: full ROM, no lymphadenopathy, supple and no JVD Lymph: LYMPHATIC: no lymphadenopathy noted and no lymphedema noted Resp: COMMON NORMALS: normal respiratory effort, No retractions, No use of accessory muscles and clear to auscultation bilaterally AUSCULTATION: clear to auscultation bilaterally Cardio: COMMON NORMALS: no JVD, regular rate, regular rhythm and No murmurs present (Cardio) RATE: regular rate RHYTHM: regular rhythm GI: COMMON NORMALS: No hepatosplenomegaly present AUSCULTATION: Yes normoactive bowel sounds PALPATION: Yes Tenderness to palpation present (GI) Details: RUQ, No Guarding due to palpation present (GI) and Yes No hepatosplenomegaly present Extremity: COMMON NORMALS: normal to inspection, capillary refill normal, no clubbing, cyanosis or edema, no calf tenderness and no pedal edema Neuro: SENSORIUM/ORIENTATION: Yes oriented to person, Yes oriented to place and Yes oriented to time Skin: COMMON NORMALS: no rashes or lesions noted GENERAL SKIN EXAM: no rashes or lesions noted Course Vital Signs: Vital signs: Vital Signs Temperature 98.0 F 09/23/22 06:17 Pulse Rate 69 09/23/22 11:00 Respiratory Rate 18 09/23/22 11:00 Blood Pressure 183/119 09/23/22 11:00 Pulse Oximetry 100 09/23/22 11:00 Oxygen Delivery Me thod 09/23/22 11:00 MDM - Abdominal Pain Medical Decision Making MRCP does not show any common bile duct obstruction. There is no dilation. It is possible that he may have already passed the stone there is none present in the duct and no obstruction according to Dr. Linn at this time. There is a lot of stones in the neck of the gallbladder. We will admit the patient to surgery consult the hospitalist for blood pressure control. Patient will be kept n.p.o. is given him Zosyn if discussed with Dr. Vargas he is agreeable to take him on his service. Dr. Vargas came and seen the patient in the emergency room initially when I talked to him he was in the OR. He is decided at this point to go ahead and take patient to surgery for cholecystectomy. He is also informed Dr. España who was consulted. Medical Records I reviewed the patient's medical records. Lab Data I reviewed the patient's lab results. 09/23/22 06:20 09/23/22 06:20 Labs/Radiology: Radiology Impressions Cholangiopancreatography MRI 09/23/22 07:48 IMPRESSION: 1. Normal common bile duct. No intrahepatic duct dilatation. 2. Normally distended gallbladder with stones and sludge. 3. Pericholecystic fluid adjacent to the gallbladder neck extending posterior to the adjacent duodenum. Early changes of acute cholecystitis versus duodenitis. No gallbladder wall thickening. Laboratory Results WBC 7.8 10^3/uL (4.0-10.0) 09/23/22 06:20 RBC 5.21 10^6/uL (4.1-5.3) 09/23/22 06:20 Hgb 17.0 g/dL (11.7-16.6) H 09/23/22 06:20 Hct 52.7 % (42.0-52.0) H 09/23/22 06:20 MCV 101.2 fl (80-94) H 09/23/22 06:20 MCH 32.6 pg (28.0-34.0) 09/23/22 06:20 MCHC 32.3 g/dL (30.0-36.0) 09/23/22 06:20 RDW 13.8 % (12.1-15.1) 09/23/22 06:20 Plt Count 183 10^3/cmm (130-400) 09/23/22 06:20 MPV 10.6 fL (7.4-10.4) H 09/23/22 06:20 Neut % (Auto) 78.9 % 09/23/22 06:20 Lymph % (Auto) 9.9 % 09/23/22 06:20 [place] % (Auto) 9.0 % 09/23/22 06:20 Eos % (Auto) 1.4 % 09/23/22 06:20 Baso % (Auto) 0.4 % 09/23/22 06:20 Neut # (Auto) 6.12 10^3/uL (1.8-7.7) 09/23/22 06:20 Lymph # (Auto) 0.8 10^3/uL (0.8-4.8) 09/23/22 06:20 [place] # (Auto) 0.7 10^3/uL (0.2-0.9) 09/23/22 06:20 Eos # (Auto) 0.1 10^3/uL (0.0-0.8) 09/23/22 06:20 Baso # (Auto) 0.0 10^3/uL (0.0-0.1) 09/23/22 06:20 Nucleated RBC % (auto) 0 % 09/23/22 06:20 Nucleated RBCs # 0.0 /100WBC 09/23/22 06:20 Sodium 142 mmol/L (136-145) 09/23/22 06:20 Potassium 3.6 mmol/L (3.5-5.1) 09/23/22 06:20 Chloride 102 mmol/L (98-107) 09/23/22 06:20 Carbon Dioxide 29 mmol/L (22-29) 09/23/22 06:20 Anion Gap 14.6 (5-19) 09/23/22 06:20 BUN 8 mg/dL (6-20) 09/23/22 06:20 Creatinine 0.8 mg/dL (0.7-1.2) 09/23/22 06:20 GFR Calculation 110.0 mL/min (90-130) 09/23/22 06:20 Glucose 118 mg/dL (65-115) H 09/23/22 06:20 Calculated Osmolality 293 mOsm/kg (285-295) 09/23/22 06:20 Calcium 9.3 mg/dL (8.5-10.5) 09/23/22 06:20 Total Bilirubin 4.0 mg/dL (0.15-1.2) H 09/23/22 06:20 AST 439 U/L (0-40) H 09/23/22 06:20 ALT 219 U/L (0-41) H 09/23/22 06:20 Alkaline Phosphatase 255 U/L (40-130) H 09/23/22 06:20 Total Protein 7.1 g/dL (6.6-8.7) 09/23/22 06:20 Albumin 4.2 g/dL (3.5-5.2) 09/23/22 06:20 Globulin 2.9 g/dL (1.3-4.6) 09/23/22 06:20 Lipase 85094 U/L (13-60) H 09/23/22 06:20 Urine Color Yellow (Yellow) 09/23/22 06:45 Urine Appearance Clear (CLEAR) 09/23/22 06:45 Urine pH 7 (5-7) 09/23/22 06:45 Ur Specific [place] 1.010 (1.005-1.030) 09/23/22 06:45 Urine Protein Neg (Negative) 09/23/22 06:45 Urine Glucose (UA) Norm (Normal) 09/23/22 06:45 Urine Ketones Negative (Negative) 09/23/22 06:45 Urine Blood Neg (Negative) 09/23/22 06:45 Urine Nitrate Negative (Negative) 09/23/22 06:45 Urine Bilirubin Neg (Negative) 09/23/22 06:45 Urine Urobilinogen Neg mg/dL (Negative) 09/23/22 06:45 Ur Leukocyte Esterase Negative (Negative) 09/23/22 06:45 Discharge Plan Discharge Patient Disposition: Admitted As Inpatient Clinical Impression: Acute cholecystitis, Acute pancreatitis Condition: Stable Coding Level of Care Code 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
[2022-09-23] MEDS: morphine 4 mg/mL SDV 1 mL IVP (06:45)
[2022-09-23 06:51] LABS: Add Urine Microscopic? NO; Charge for UA Resulting for Rev
[2022-09-23 06:54] LABS: Bilirubin Urine Neg (Negative); Blood Urine Neg (Negative); Glucose Urine UA Norm (Normal); Ketones Urine Negative (Negative); Leukocyte Esterase Urine Negative (Negative); Nitrate Urine Negative (Negative); Protein Urine Neg (Negative); Urine Appearance Clear (CLEAR); Urine Color Yellow (Yellow); Urobilinogen Urine Neg (Negative); pH Urine 7 (5-7)
[2022-09-23 06:54] LABS: Alanine Aminotransferase 219 U/L (0-41); Albumin Level 4.2 g/dL (3.5-5.2); Alkaline Phosphatase 255 U/L (40-130); Anion Gap 14.6 (5-19); Aspartate Amino Transferase 439 U/L (0-40); Blood Urea Nitrogen 8 mg/dL (6-20); Calcium 9.3 mg/dL (8.5-10.5); Carbon Dioxide 29 mmol/L (22-29); Chloride 102 mmol/L (98-107); Globulin 2.9 g/dL (1.3-4.6); Glucose 118 mg/dL (65-115); Osmolality Calculated 293 mOsm/kg (285-295); Potassium 3.6 mmol/L (3.5-5.1); Sodium 142 mmol/L (136-145); Total Protein 7.1 g/dL (6.6-8.7)
[2022-09-23 07:41] LABS: Lipase 10474 U/L (13-60)
--- NOTE | 2022-09-23 07:48 | MR_ITS ---
WS: [id number] MRCP (MAGNETIC RESONANCE CHOLANGIOPANCREATOGRAPHY) HISTORY: Transaminitis, hyperbilirubinemia, elevated lipase COMPARISON: 08/10/2022, gallbladder ultrasound 08/27/2022 TECHNIQUE: Multiple sequences are performed to evaluate the intra and extrahepatic ducts. Normal appearance of the common bile duct. There is no bile duct dilatation to the level of the pancr eatic head. Pancreatic duct is also normal. Cystic duct is well visualized. The gallbladder is well distended. There is a small amount of fluid adjacent to the neck of the gallb ladder extending posterior to the duodenum. There are a few small stones within the gallbladder and l ayering sludge. Suspect there are some small stones at the neck of the gallbladder also. No intrahepatic bile duct dilatation. Changes of mild hepatic steatosis. No liver mass or lesion. No ascites. No pleural effusions. MR/MR MRCP [id number] IMPRESSION: 1. Normal common bile duct. No intrahepatic duct dilatation. 2. Normally distended gallbladder with stones and sludge. 3. Pericholecystic fluid adjacent to the gallbladder neck extending posterior to the adjacent duodenum. Early changes of acute cholecystitis versus duodeniti s. No gallbladder wall thickening.
[2022-09-23] MEDS: morphine 4 mg/mL SDV 1 mL 6 MG IVP ×2 (08:26→10:58)
--- NOTE | 2022-09-23 08:33 | PC.NURSE ---
MRI form filled out with patient and this nurse, given to . Dates of previous surgeries and procedures from this facility were given to patient for form. Patient denies any claustrophobia or issues with previous MRIs.
[2022-09-23] MEDS: piperacillin-tazobactam 3.375 GM in sodium chloride 0.9% (plus) 50 ML IV ×3 (09:00→22:50)
[2022-09-23] MEDS: pantoprazole 40 mg SDV IVP (10:57)
--- NOTE | 2022-09-23 11:04 | PC.NURSE ---
Dr España in room with patient
--- NOTE | 2022-09-23 11:18 | P.HP_ITS ---
Providers/Chief Complaint Chief Complaint: chest pain, burning pain into stomach and back History of Present Illness Albert Rangel is a 37 year old male who I have seen in office for symptomatic cholelithiasis and have scheduled him for laparoscopic cholecystectomy. He began having severe epigastric and right upper quadrant abdominal pain radiating to his back 3 days ago. He had associated nausea and vomiting. Denies any diarrhea or constipation. Denies hematochezia or melena. Palpation makes the pain worse. Eating makes pain worse. Nothing makes pain better. His bilirubin and lipase are elevated. MRCP shows normal common bile duct with pericholecystic fluid around the gallbladder neck and small gallstones in the gallbladder neck. Review of Systems General: Reports: 10 or more systems reviewed and unremarkable except in HPI and below Medications/Allergies Home Medications Medication Instructions Recorded Confirmed Last Taken Type lisinopril 20 mg tablet 20 mg PO DAILY 06/23/21 09/19/22 09/19/22 History atenolol 25 mg tablet 25 mg PO DAILY 30 days #30 tabs 08/15/22 09/19/22 09/19/22 Rx ondansetron 4 mg disintegrating 4 mg PO Q6H PRN nausea and 08/27/22 09/19/22 09/19/22 Rx tablet vomiting #14 tabs multivitamin 1 tab PO DAILY 08/30/22 09/19/22 09/19/22 History pantoprazole 40 mg tablet,delayed 40 mg PO BID 6 weeks #84 tabs 08/30/22 09/19/22 09/19/22 Rx release (Protonix) Allergies Allergy/AdvReac Type Severity Reaction Status Date / Time No Known Allergies Allergy Verified 08/30/22 09:59 PFSH Acute PFSH: Medical History Cholelithiasis GERD (gastroesophageal reflux disease) Hx of seizure disorder Hypertension Surgical History History of foot surgery Hx of shoulder surgery left shoulder Family History Other Cancer Social History Smoking and tobacco status: current every day smoker Alcohol intake: current Vitals/I&O/Wt Last Vital Signs Temp 98.0 F 09/23/22 06:17 Pulse 69 09/23/22 11:00 Resp 18 09/23/22 11:00 BP 183/119 09/23/22 11:00 Pulse Ox 100 09/23/22 11:00 O2 Del Method 09/23/22 11:00 09/22/22 09/23/22 09/23/22 22:59 06:59 14:59 Intake Total 1050 / 1050 Balance 1050 / 1050 Weight last 48 hrs Weight 0 oz Weight 183 lb 4.8 oz Physical Exam Narrative: General : Patient is well developed , no acute distress, oriented x3 Head : Normal cephalic, a-traumatic. Ears : Pinnae and external canal are normal. Hearing is normal. Eyes : PERRLA, Sclera and injection are normal. No conjunctival discharge. Nose : Mucous membranes are without erythema. Throat : buccal mucosa is normal, gums are without significant recession or hypertrophy. Lungs : Equal chest rise bilaterally, no use of accessory muscles, trachea is midline. Cor : Rate and rhythm are normal. Abdomen : Soft, mildly distended, tender to palpation epigastrium and right upper quadrant, no g/r/m Extremities : No edema, no cyanosis or clubbing, dorsalis pedis pulses are present bilaterally, non-tender to palpation of calves. Upper extremities are normal bilaterally. Back : non-tender to palpation, no CVA tenderness. Neuro : CN II - XII intact, Upper and lower extremities have equal and full strength Data 09/23/22 06:20 09/23/22 06:20 A&P Assessment and plan (1) Acute cholecystitis: (2) Acute pancreatitis: (3) Hyperbilirubinemia: (4) Transaminitis: Plan Laparoscopic cholecystectomy The risks and benefits of the procedure, including but not limited to, bleeding, infection, scar, numbness, pain, damage to surrounding structures, damage to common bile duct requiring additional surgery, conversion to an open procedure, were explained to the patient. He is understanding of the risks and wishes to proceed. Admit to [facility] under myself Zosyn Aggressive IV fluid therapy Medicine consult See orders Attestations Medical Necessity Statement*: Patient requires at least 1 night in the hospital following laparoscopic cholecystectomy Coding Level of Care Code Acute Code for [facility] Diagnoses Acute cholecystitis K81.0 Acute pancreatitis K85.90 Hyperbilirubinemia E80.6 Transaminitis R74.01
--- NOTE | 2022-09-23 11:18 | PM.CONSULT ---
Providers/Reason For Consult Consulting Physician/Specialty*: Brody España MD, hospitalist Reason for Consult*: Abdominal pain Requesting Physician: Dr. Vargas Attending Physician: Dr. Vargas History of Present Illness History of Present Illness Albert Rangel is a 37 year old male presenting to the emergency department with complaints of significant epigastric abdominal pain, repetitive vomiting since yesterday. He was hospitalized first with pancreatitis from August 10 through August 15. It was identified he had gallstones at that time and surgery has continue to follow. Patient reports vomiting every 4 days or so, associated with abdominal pain, that began last 24 hours. He has lost around 30 pounds since his previous hospital stay. He reports he has a bowel movement about every 4 days. No blood in his stool, or his emesis. No fevers. He reports he is still drinking on rare occasion, last alcoholic beverage a week or so ago. He does take ibuprofen occasionally, with last intake about a week ago. He has had feelings of pain, and swelling in his lower extremities, feet, and some in his hands in the past month. Triglycerides were checked last admission and not elevated. Review of Systems General: Reports: 10 or more systems reviewed and unremarkable except in HPI and below Const: Reports: malaise; Denies: fever(s) or chills Eyes: Denies: change in vision ENMT: Denies: throat pain Card: Denies: chest pain Resp: Denies: dyspnea GI: Reports: abdominal pain, nausea and vomiting; Denies: hematemesis, hematochezia or melena : Denies: flank pain Musc: Denies: neck pain Skin/Breast: Denies: rash Neuro: Reports: other (Numbing pain in his feet) Psych: Denies: anxiety or depression Endo: Denies: polyuria [place]/Lymph: Denies: easy bruising All/Imm: Denies: urticaria Medications/Allergies Home Medications Medication Instructions Recorded Confirmed Last Taken Type multivitamin 1 tab PO QAM 08/30/22 09/23/22 09/19/22 History pantoprazole 40 mg tablet,delayed 40 mg PO BID 6 weeks #84 tabs 08/30/22 09/23/22 2 Days Ago Rx release (Protonix) ~09/21/22 atenolol 25 mg tablet 25 mg PO QAM 09/23/22 09/23/22 2 Days Ago History ~09/21/22 hydrocodone 5 mg-acetaminophen 325 1 tab PO Q6H PRN Pain 09/23/22 09/23/22 Unknown History mg tablet lactulose 10 gram/15 mL oral 30 ml PO BID PRN Constipation 09/23/22 09/23/22 Unknown History solution (Constulose) lisinopril 40 mg tablet 40 mg PO QAM 09/23/22 09/23/22 2 Days Ago History ~09/21/22 ondansetron 4 mg disintegrating 4 mg PO BID 09/23/22 09/23/22 Unknown History tablet oxycodone 5 mg tablet 5 mg PO Q6H PRN Pain 09/23/22 09/23/22 Unknown History paroxetine HCl 20 mg tablet 20 mg PO BEDTIME 09/23/22 09/23/22 Unknown History trazodone 50 mg tablet 50 mg PO BEDTIME 09/23/22 09/23/22 Unknown History Allergies Allergy/AdvReac Type Severity Reaction Status Date / Time No Known Allergies Allergy Verified 09/23/22 11:22 Current Medications Generic Name Dose Route Start Last Admin Trade Name Freq PRN Reason Stop Dose Admin Sodium Chloride 1,000 mls @ 999 mls/hr 09/23/22 10:45 09/23/22 10:58 Sodium Chloride 0.9% IV 09/23/22 12:45 999 mls/hr .Q1H1M OLIVIA Administration PFSH Acute PFSH: Medical History (Updated 09/23/22 @ 11:27 by Brody España MD) Cholelithiasis GERD (gastroesophageal reflux disease) Hx of seizure disorder Hypertension Surgical History History of foot surgery Hx of shoulder surgery left shoulder Family History Other Cancer Social History Smoking and tobacco status: current every day smoker Alcohol intake: current Vitals/I&O/Wt Last Vital Signs Temp 98.0 F 09/23/22 06:17 Pulse 69 09/23/22 11:00 Resp 18 09/23/22 11:00 BP 183/119 09/23/22 11:00 Pulse Ox 100 09/23/22 11:00 O2 Del Method 09/23/22 11:00 09/22/22 09/23/22 09/23/22 22:59 06:59 14:59 Intake Total 1050 / 1050 Balance 1050 / 1050 Weight last 48 hrs Weight 0 g Weight 83.143 kg Physical Exam Narrative: General exam demonstrates a white male, reporting abdominal pain, in no distress currently. Blood pressure is noted to be elevated. HEENT: Atraumatic and normocephalic. Pupils equally round. Oropharynx clear. Neck is supple no lymphadenopathy or thyromegaly Cardiovascular regular rate and rhythm without murmur Lungs clear no wheezing or crackles Abdomen is tenderness in the epigastric area. No obvious hepatosplenomegaly. Bowel sounds are noted. exam deferred Extremities no cyanosis clubbing or edema, cap refill brisk Skin no rash. Some hemosiderin staining is noted around his ankles Neuro no focal deficits. Data 09/23/22 06:20 09/23/22 06:20 Other Labs: LFTs demonstrate a bilirubin of 4.0, AST 439, ALT of 219, alk phos of 255. Lipase is 10,500 Albumin is 4.2 Urinalysis is negative Calcium 9.3 MRCP demonstrates normal common bile duct, no dilation. Distended gallbladder with stones sludge Fluid next to gallbladder neck extending posterior to adjacent duodenum and early changes of acute cholecystitis versus duodenitis. EKG demonstrates sinus rhythm, left axis deviation, nonspecific ST-T wave changes A&P Assessment and plan (1) Acute pancreatitis: Patient presents with acute pancreatitis Surgery is primary Pain control Concern cholelithiasis may have contributed Discontinue CRIS inhibitor if he is still taking Hydration Triglyceride level (2) Acute cholecystitis: Zosyn IV is started by the emergency department Pain control (3) Hyperbilirubinemia: MRCP does not indicate obstruction, stone in duct Continue to follow, cannot rule out passed stone (4) Hypertension: Continue atenolol Add Norvasc and substitution for lisinopril Hydralazine as needed (5) GERD (gastroesophageal reflux disease): Protonix IV (6) Neuropathy: Check B12 level TSH has already been checked May be nutritional, add multivitamin daily Plan History of alcohol use. Again discouraged use. He reports no intake in the last week History of ibuprofen use. Discouraged secondary to concern of reflux, vomiting. Full code DVT prophylaxis per primary Thank you for this consultation Consult Attestations Medical Necessity Statement: As per primary Coding Level of Care Code Acute Code for [facility] Diagnoses Acute pancreatitis K85.90 Acute cholecystitis K81.0 Hyperbilirubinemia E80.6 Hypertension I10 GERD (gastroesophageal reflux disease) K21.9 Neuropathy G62.9
[2022-09-23 11:55] LABS: Magnesium 1.9 mg/dL (1.7-2.3); Triglycerides 85 mg/dL (0-150)
[2022-09-23] MEDS: hyDRALAzine 20 mg/mL INJ 1 mL 10 MG IVP (11:55)
[2022-09-23 12:11] LABS: Vitamin B12 859 pg/mL (232-1245)
[2022-09-23] MEDS: sodium chloride 0.9% 1,000 ML 30 ML IV (12:20)
--- NOTE | 2022-09-23 12:23 | ANES.PREANE2 ---
Pre-Anesthetic Assessment Height/Weight: Height 1.73 m Weight 0 g Temp Pulse Resp BP Pulse Ox O2 Del Method 97.7 F 87 18 166/92 98 09/23/22 12:07 09/23/22 12:07 09/23/22 12:07 09/23/22 12:07 09/23/22 12:07 09/23/22 12:07 Preop Diagnosis: Fracture Left clavicle Operation Date: 09/23/22 12:45 Proposed Procedures p Laparoscopic Cholecystectomy(Not Applicable) - Chandan Vargas DO Familial anesthetic complications: None Was Beta Narayan taken within 24 hours: N/A Was Clonidine taken within 24 hours: N/A Last intake: > 8hrs Social No alcohol and No tobacco Exam alert, oriented x 3, clear to auscultation bilaterally and regular rate & rhythm Airway Mallampati: Class III Dentition: chipped CV/HEM Hypertension GI Gastroesophageal Reflux Disease Anesthetic Plan ASA status: 2 Anesthesia: General Risk of > 500 ml blood loss (7ml/kg in children): No Medications/Allergies Home Medications Medication Instructions Recorded Confirmed Last Taken Type multivitamin 1 tab PO QAM 08/30/22 09/23/22 09/19/22 History pantoprazole 40 mg tablet,delayed 40 mg PO BID 6 weeks #84 tabs 08/30/22 09/23/22 2 Days Ago Rx release (Protonix) ~09/21/22 atenolol 25 mg tablet 25 mg PO QAM 09/23/22 09/23/22 2 Days Ago History ~09/21/22 hydrocodone 5 mg-acetaminophen 325 1 tab PO Q6H PRN Pain 09/23/22 09/23/22 Unknown History mg tablet lactulose 10 gram/15 mL oral 30 ml PO BID PRN Constipation 09/23/22 09/23/22 Unknown History solution (Constulose) lisinopril 40 mg tablet 40 mg PO QAM 09/23/22 09/23/22 2 Days Ago History ~09/21/22 ondansetron 4 mg disintegrating 4 mg PO BID 09/23/22 09/23/22 Unknown History tablet oxycodone 5 mg tablet 5 mg PO Q6H PRN Pain 09/23/22 09/23/22 Unknown History paroxetine HCl 20 mg tablet 20 mg PO BEDTIME 09/23/22 09/23/22 Unknown History trazodone 50 mg tablet 50 mg PO BEDTIME 09/23/22 09/23/22 Unknown History Allergies Allergy/AdvReac Type Severity Reaction Status Date / Time No Known Allergies Allergy Verified 09/23/22 11:22 Current Medications Generic Name Dose Route Start Last Admin Trade Name Freq PRN Reason Stop Dose Admin Hydralazine HCl 10 mg 09/23/22 11:30 09/23/22 11:55 Hydralazine 20 Mg/Ml Inj 1 Ml IVP 10 mg Q4H PRN Administration HYPERTENSION Sodium Chloride 1,000 mls @ 999 mls/hr 09/23/22 10:45 09/23/22 11:58 Sodium Chloride 0.9% IV 09/23/22 12:45 Infused .Q1H1M OLIVIA Infusion Sodium Chloride 1,000 mls @ 30 mls/hr 09/23/22 12:15 09/23/22 12:20 Sodium Chloride 0.9% IV 09/24/22 12:14 30 mls/hr .Q24H OLIVIA Administration PFSH Anesthesia Medical History (Updated 09/23/22 @ 11:27 by Brody España MD) Cholelithiasis GERD (gastroesophageal reflux disease) Hx of seizure disorder Hypertension Surgical History History of foot surgery Hx of shoulder surgery left shoulder Family History Other Cancer Social History Smoking and tobacco status: current every day smoker Alcohol intake: current Data Anesthesia 09/23/22 06:20 09/23/22 06:20 Short CBC 09/23/22 Range/Units 06:20 WBC 7.8 (4.0-10.0) 10^3/uL Hgb 17.0 H (11.7-16.6) g/dL Hct 52.7 H (42.0-52.0) % MCV 101.2 H (80-94) fl Plt Count 183 (130-400) 10^3/cmm Neut % (Auto) 78.9 % Neut # (Auto) 6.12 (1.8-7.7) 10^3/uL BMP 09/23/22 06:20 Sodium 142 Potassium 3.6 Chloride 102 Carbon Dioxide 29 BUN 8 Creatinine 0.8 Glucose 118 H Calcium 9.3 Liver Function 09/23/22 Range/Units 06:20 Total Bilirubin 4.0 H (0.15-1.2) mg/dL AST 439 H (0-40) U/L ALT 219 H (0-41) U/L Alkaline Phosphatase 255 H (40-130) U/L Albumin 4.2 (3.5-5.2) g/dL Urine 09/23/22 Range/Units 06:45 Urine Color Yellow (Yellow) Urine Appearance Clear (CLEAR) Urine pH 7 (5-7) Ur Specific [place] 1.010 (1.005-1.030) Urine Protein Neg (Negative) Urine Glucose (UA) Norm (Normal) Urine Ketones Negative (Negative) Urine Nitrate Negative (Negative) Urine Bilirubin Neg (Negative) Ur Leukocyte Esterase Negative (Negative) Cardiac Studies: No Data to Display
[2022-09-23] MEDS: HYDROmorphone 1 mg/mL INJ 1 mL 0.5 MG IVP (12:25)
[2022-09-23] MEDS: HYDROmorphone 1 mg/mL INJ 1 mL IVP ×3 (14:29→20:55)
[2022-09-23] MEDS: sodium chloride 0.9% 1,000 ML 200 ML IV ×2 (14:36→21:41)
[2022-09-23] MEDS: oxyCODONE-APAP 10-325 mg Tablet 1 TAB PO ×2 (15:14→19:30)
[2022-09-23] MEDS: heparin 5,000 unit/mL INJ 1 mL 5000 UNIT SUBCUT (15:14)
--- NOTE | 2022-09-23 16:21 | P.OP_ITS ---
Operative Report Date of procedure: August Pre-op diagnosis: Preop Diagnosis acute calculus cholecystitis Post-op diagnosis: same Procedure done: Laparoscopic cholecystectomy Specimens removed/disposition: Gallbladder Surgeon: Dr. Chandan Vargas DO Anesthesia: General Estimated blood loss (mL): 5 Complications: None apparent Brief History: This is a very pleasant 37-year-old gentleman with acute calculus cholecystitis. Laparoscopic cholecystectomy is indicated. The risk and benefits were explained and documented. Procedure: Patient was wheeled into the operative room and placed on the OR table in a supine position. Abdomen was inspected prepped and draped in usual sterile fashion. Time-out was performed and all present were in agreement. A 15 blade scalp was used to make a stab incision in the left upper quadrant and intra- abdominal insufflation was achieved using a Veress needle. After localizing the tissue incisions were made and a 5 millimeter trocar was placed into the umbilicus as well as 2 in the right upper quadrant. A 12 millimeter trocar was placed in the epigastrium. Gallbladder was grasped and elevated. The triangle of Calot was carefully dissected using blunt dissection and electrocautery until the triangle of [place]ot clearly identified. The cystic duct was clipped proximally and double clipped distally. The duct was then ligated proximally. The cystic artery was doubly clipped and ligated. The gallbladder was then removed from the liver bed using electrocautery. The gallbladder was removed from the abdomen using an Endo-Catch bag through the epigastric incision. The liver bed was inspected and no bleeding was seen. The abdomen was irrigated and suctioned. All ports removed. Skin was washed and dried. Incisions were closed with 4-0 Monocryl in a subcuticular interrupted fashion. Skin glue was applied. Patient tolerated the procedure well.
[2022-09-23] MEDS: pantoprazole DR 40 mg Tablet PO (17:35)
[2022-09-23] MEDS: docusate sodium 100 mg Capsule PO (17:36)
--- NOTE | 2022-09-23 20:48 | PC.NURSE ---
Dr. Vargas here and pt assessed. NO received and noted for 1) change diet to NPO. Pt's nurse notified.
[2022-09-23] MEDS: trazodone 50 mg Tablet PO (21:10)
[2022-09-23] MEDS: PARoxetine 20 mg Tablet PO (21:10)
[2022-09-24] VITALS (15 sets, daily range): BP systolic 126–152; BP diastolic 77–98; PULSE 63–91; RESP 15–20; TEMP 36.6–36.7; O2SAT 91–95
[2022-09-24] MEDS: HYDROmorphone 1 mg/mL INJ 1 mL IVP ×4 (00:22→10:10)
[2022-09-24] MEDS: oxyCODONE-APAP 10-325 mg Tablet 1 TAB PO ×6 (01:05→22:15)
[2022-09-24] MEDS: sodium chloride 0.9% 1,000 ML 200 ML IV ×2 (02:48→07:26)
[2022-09-24] MEDS: heparin 5,000 unit/mL INJ 1 mL 5000 UNIT SUBCUT ×2 (02:48→14:26)
[2022-09-24 03:36] LABS: Basophils % 0.1 %; Hematocrit 41.3 % (42.0-52.0); Lymphocytes # 0.6 10^3/uL (0.8-4.8); Lymphocytes % 6.6 %; Mean Corpuscular HGB Conc 31.5 g/dL (30.0-36.0); Mean Corpuscular Hemoglobin 33.2 pg (28.0-34.0); Mean Corpuscular Volume 105.4 fl (80-94); Mean Platelet Volume 11.1 fL (7.4-10.4); Monocytes # 0.6 10^3/uL (0.2-0.9); Monocytes % 6.3 %; Neutrophils % 86.7 %; Nucleated Red Blood Cells % 0 %; Platelet Count 185 10^3/cmm (130-400); Red Blood Count 3.92 10^6/uL (4.1-5.3); Red Cell Distribution Width 14.1 % (12.1-15.1); White Blood Count 8.9 10^3/uL (4.0-10.0)
[2022-09-24 03:58] LABS: Alanine Aminotransferase 125 U/L (0-41); Albumin Level 3.2 g/dL (3.5-5.2); Alkaline Phosphatase 168 U/L (40-130); Anion Gap 12.2 (5-19); Aspartate Amino Transferase 82 U/L (0-40); Blood Urea Nitrogen 7 mg/dL (6-20); Calcium 7.9 mg/dL (8.5-10.5); Carbon Dioxide 25 mmol/L (22-29); Chloride 108 mmol/L (98-107); Globulin 2.2 g/dL (1.3-4.6); Glucose 114 mg/dL (65-115); Magnesium 1.7 mg/dL (1.7-2.3); Osmolality Calculated 291 mOsm/kg (285-295); Phosphorus 3.6 mg/dL (2.5-4.5); Potassium 4.2 mmol/L (3.5-5.1); Sodium 141 mmol/L (136-145); Total Bilirubin 0.8 mg/dL (0.15-1.2); Total Protein 5.4 g/dL (6.6-8.7)
[2022-09-24] MEDS: atenolol 50 mg Tablet 25 MG PO (05:51)
[2022-09-24] MEDS: piperacillin-tazobactam 3.375 GM in sodium chloride 0.9% (plus) 50 ML IV ×3 (06:10→22:08)
--- NOTE | 2022-09-24 07:55 | P.PN_ITS ---
Subjective Subjective: Patient seen and examined. He reports that his abdominal he has some nausea but no emesis. He tried clear liquids yesterday and had significant abdominal pain so he was made n.p.o. again Vitals/I&O/Wt Last Vital Signs Temp 98.1 F 09/24/22 03:39 Pulse 91 09/24/22 03:39 Resp 16 09/24/22 06:35 BP 133/77 09/24/22 03:39 Pulse Ox 91 09/24/22 05:51 O2 Del Method 09/24/22 03:39 09/23/22 09/24/22 09/24/22 22:59 06:59 14:59 Intake Total 1296 / 4246 1050 / 5296 926.667 / 926.667 Output Total 200 / 210 700 / 910 Balance 1096 / 4036 350 / 4386 926.667 / 926.667 Weight last 48 hrs Weight 0 oz Weight 183 lb 4.8 oz Physical Exam Narrative: General : Patient is well developed , no acute distress, oriented x3 Head : Normal cephalic, a-traumatic. Ears : Pinnae and external canal are normal. Hearing is normal. Eyes : PERRLA, Sclera and injection are normal. No conjunctival discharge. Nose : Mucous membranes are without erythema. Throat : buccal mucosa is normal, gums are without significant recession or hypertrophy. Lungs : Equal chest rise bilaterally, no use of accessory muscles, trachea is midline. Cor : Rate and rhythm are normal. Abdomen : Soft, mild distention, tender to palpation in the epigastrium, no g/r/m Extremities : No edema, no cyanosis or clubbing, dorsalis pedis pulses are present bilaterally, non-tender to palpation of calves. Upper extremities are normal bilaterally. Back : non-tender to palpation, no CVA tenderness. Neuro : CN II - XII intact, Upper and lower extremities have equal and full strength Data 09/24/22 03:11 09/24/22 03:11 A&P Assessment and plan (1) Acute cholecystitis: (2) Acute pancreatitis: (3) Hyperbilirubinemia: (4) Transaminitis: Plan Postoperative day number 1 status post Laparoscopic cholecystectL deandre Zosyn Aggressive IV fluid therapy Clear liquid diet Medicine following- appreciate input Hopefully home tomorrow if tolerating diet Attestations Medical Necessity Statement*: Patient requires at least one more night in the hospital for treatment of acute pancreatitis Coding Level of Care Code Acute Code for [facility] Diagnoses Acute cholecystitis K81.0 Acute pancreatitis K85.90 Hyperbilirubinemia E80.6 Transaminitis R74.01
[2022-09-24] MEDS: docusate sodium 100 mg Capsule PO ×2 (09:20→17:36)
[2022-09-24] MEDS: pantoprazole DR 40 mg Tablet PO ×2 (09:20→17:36)
[2022-09-24] MEDS: multivitamin therapeutic Tablet 1 TAB PO (09:20)
[2022-09-24] MEDS: amlodipine 10 mg Tablet PO (09:20)
--- NOTE | 2022-09-24 10:39 | PM.PN ---
Subjective Subjective: Patient was seen this morning, he is enjoying a clear liquid diet he wants more broth, has no other complaints Vitals/I&O/Wt Last Vital Signs Temp 97.8 F 09/24/22 08:00 Pulse 77 09/24/22 08:00 Resp 20 H 09/24/22 10:10 BP 126/80 09/24/22 08:00 Pulse Ox 92 09/24/22 08:00 O2 Del Method 09/24/22 03:39 09/23/22 09/24/22 09/24/22 22:59 06:59 14:59 Intake Total 1296 / 4246 1050 / 5296 2850.000 / 2850.000 Output Total 200 / 210 700 / 910 Balance 1096 / 4036 350 / 4386 2850.000 / 2850.000 Weight last 48 hrs Weight 0 g Weight 83.143 kg Physical Exam Const: COMMON NORMALS: no acute distress and patient oriented x3 Resp: COMMON NORMALS: normal respiratory effort, No retractions, No use of accessory muscles and clear to auscultation bilaterally AUSCULTATION: clear to auscultation bilaterally Cardio: COMMON NORMALS: regular rate, regular rhythm, S1 normal heart sound present and S2 normal heart sound present RATE: regular rate RHYTHM: regular rhythm HEART SOUNDS: S1 normal heart sound present and S2 normal heart sound present GI: OTHER: Abdomen soft, slightly distended, bowel sounds present, surgical site looks clean dry Extremity: COMMON NORMALS: no pedal edema Neuro: COMMON NORMALS: patient oriented x3 Psych: COMMON NORMALS: mental status grossly normal Data 09/24/22 03:11 09/24/22 03:11 A&P Assessment and plan (1) Acute pancreatitis: Patient presents with acute pancreatitis Surgery is primary Pain control Concern cholelithiasis may have contributed Discontinue CRIS inhibitor if he is still taking Fluids going at 200 cc an hour, looking a bit fluid overloaded, a bit edematous, will decrease to 125 cc an hour Monitor triglyceride level (2) Acute cholecystitis: Status post laparoscopic cholecystectomy Pain control Currently on clear liquid diet (3) Hyperbilirubinemia: MRCP does not indicate obstruction, stone in duct Continue to follow, cannot rule out passed stone (4) Hypertension: Continue atenolol Add Norvasc and substitution for lisinopril Hydralazine as needed (5) GERD (gastroesophageal reflux disease): Protonix IV (6) Neuropathy: TSH has already been checked May be nutritional, add multivitamin daily Plan History of alcohol use. Again discouraged use. He reports no intake in the last week History of ibuprofen use. Discouraged secondary to concern of reflux, vomiting. Full code DVT prophylaxis per primary Thank you for this consultation Plan for today adjust fluid hydration continue clear liquid diet, up out of bed, potentially discharge tomorrow Attestations Medical Necessity Statement*: Patient requires hospitalization for acute pancreatitis, acute cholecystitis, hyperbilirubinemia hypertriglyceridemia Coding Level of Care Code Acute Code for [facility]g Fwd Diagnoses Acute pancreatitis K85.90 Acute cholecystitis K81.0 Hyperbilirubinemia E80.6 Hypertension I10 GERD (gastroesophageal reflux disease) K21.9 Neuropathy G62.9
[2022-09-24] MEDS: sodium chloride 0.9% 1,000 ML 125 ML IV ×2 (14:26→19:21)
[2022-09-24] MEDS: diphenhydrAMINE 50 mg Capsule PO (16:49)
--- NOTE | 2022-09-24 19:41 | PC.NURSE ---
pt c/o feeling B/P extremely high, patient face beat red, BP 142/91, redness in face dicipating, c/o feeling of disorientation, pt and informed that pt has taken multiple pain meds throughout the night, pt then explained that he feels like he is going to fall but he is laying down, pt also verbalized that he has not had any sleep in a few days. pt was awake majority of last night. Trazadone not working.
[2022-09-24] MEDS: ALPRAZolam 0.5 mg Tablet 0.25 MG PO (20:06)
[2022-09-24] MEDS: trazodone 50 mg Tablet PO (20:38)
[2022-09-24] MEDS: PARoxetine 20 mg Tablet PO (20:38)
[2022-09-24] MEDS: diphenhydrAMINE cream 30 gm 1 APPLIC TOPICAL (20:39)
[2022-09-25] VITALS (8 sets, daily range): BP systolic 116–147; BP diastolic 70–88; PULSE 60–71; RESP 16–18; TEMP 36.4–36.6; O2SAT 95–98
[2022-09-25] MEDS: oxyCODONE-APAP 10-325 mg Tablet 1 TAB PO ×3 (02:04→10:39)
[2022-09-25] MEDS: heparin 5,000 unit/mL INJ 1 mL 5000 UNIT SUBCUT (02:04)
[2022-09-25] MEDS: sodium chloride 0.9% 1,000 ML 125 ML IV (03:23)
[2022-09-25 05:35] LABS: Basophils % 0.6 %; Eosinophils # 0.2 10^3/uL (0.0-0.8); Eosinophils % 3.2 %; Hematocrit 39.8 % (42.0-52.0); Hemoglobin 12.3 g/dL (11.7-16.6); Lymphocytes # 1.8 10^3/uL (0.8-4.8); Mean Corpuscular HGB Conc 30.9 g/dL (30.0-36.0); Mean Corpuscular Hemoglobin 33.4 pg (28.0-34.0); Mean Corpuscular Volume 108.2 fl (80-94); Mean Platelet Volume 11.3 fL (7.4-10.4); Monocytes # 0.5 10^3/uL (0.2-0.9); Monocytes % 8.4 %; Neutrophils # 3.61 10^3/uL (1.8-7.7); Neutrophils % 58.5 %; Nucleated Red Blood Cells % 0 %; Platelet Count 162 10^3/cmm (130-400); Red Blood Count 3.68 10^6/uL (4.1-5.3); Red Cell Distribution Width 14.1 % (12.1-15.1); White Blood Count 6.2 10^3/uL (4.0-10.0)
[2022-09-25 05:55] LABS: Blood Urea Nitrogen 5 mg/dL (6-20); Calcium 7.9 mg/dL (8.5-10.5); Carbon Dioxide 28 mmol/L (22-29); Chloride 106 mmol/L (98-107); Glomerular Filtration Rate 128.3 mL/min (90-130); Glucose 82 mg/dL (65-115); Magnesium 1.7 mg/dL (1.7-2.3); Osmolality Calculated 286 mOsm/kg (285-295); Phosphorus 2.5 mg/dL (2.5-4.5); Sodium 140 mmol/L (136-145)
[2022-09-25] MEDS: piperacillin-tazobactam 3.375 GM in sodium chloride 0.9% (plus) 50 ML IV (06:28)
[2022-09-25] MEDS: atenolol 50 mg Tablet 25 MG PO (06:29)
--- NOTE | 2022-09-25 09:21 | P.DS_ITS ---
Discharge Providers Date of Admission: 09/23/22 14:07 Date of Discharge: September 25, 2022 Attending Provider at Admission: Chandan Vargas DO Attending Provider at Discharge: Chandan Vargas DO Consults: Hospitalist Diagnoses at Discharge Discharge Diagnosis (1) Acute pancreatitis: Status: Acute (2) Acute cholecystitis: Status: Acute (3) Hyperbilirubinemia: Status: Acute (4) Hypertension: Status: Acute (5) GERD (gastroesophageal reflux disease): Status: Acute (6) Neuropathy: Status: Acute Reason for Visit Reason for Visit: chest pain, burning pain into stomach and back Hospital Course Hospital Course This very pleasant 37-year-old gentleman who came in with acute calculus cholecystitis, hyperbilirubinemia and acute pancreatitis. He underwent laparoscopic cholecystectomy and quickly improved. His pancreatitis lingered and he stayed in the hospital for a few days. He was tolerating a regular diet upon discharge. Physical Exam Narrative: General : Patient is well developed , no acute distress, oriented x3 Head : Normal cephalic, a-traumatic. Ears : Pinnae and external canal are normal. Hearing is normal. Eyes : PERRLA, Sclera and injection are normal. No conjunctival discharge. Nose : Mucous membranes are without erythema. Throat : buccal mucosa is normal, gums are without significant recession or hypertrophy. Lungs : Equal chest rise bilaterally, no use of accessory muscles, trachea is midline. Cor : Rate and rhythm are normal. Abdomen : Soft, mild distention, mild tenderness to palpation in the epigastrium no g/r/m Extremities : No edema, no cyanosis or clubbing, dorsalis pedis pulses are present bilaterally, non-tender to palpation of calves. Upper extremities are normal bilaterally. Back : non-tender to palpation, no CVA tenderness. Neuro : CN II - XII intact, Upper and lower extremities have equal and full strength Discharge Data Studies Completed and Pending Completed Studies During Hospitalization Category Date Time Status MR MRCP [id number] Stat MRI 09/23/22 07:48 Completed Pending at discharge Category Date Time Status Basic Metabolic Panel AM LABS Lab 09/26/22 04:00 Ordered Complete Blood Count w/Auto AM LABS Lab 09/26/22 04:00 Ordered Magnesium AM LABS Lab 09/26/22 04:00 Ordered Phosphorus AM LABS Lab 09/26/22 04:00 Ordered Pathology: Surgical [PTH] Routine Pth 09/23/22 13:14 Received Radiology Impressions Cholangiopancreatography MRI 09/23/22 07:48 IMPRESSION: 1. Normal common bile duct. No intrahepatic duct dilatation. 2. Normally distended gallbladder with stones and sludge. 3. Pericholecystic fluid adjacent to the gallbladder neck extending posterior to the adjacent duodenum. Early changes of acute cholecystitis versus duodenitis. No gallbladder wall thickening. Laboratory Results WBC 6.2 10^3/uL (4.0-10.0) 09/25/22 04:28 RBC 3.68 10^6/uL (4.1-5.3) L 09/25/22 04:28 Hgb 12.3 g/dL (11.7-16.6) 09/25/22 04:28 Hct 39.8 % (42.0-52.0) L 09/25/22 04:28 MCV 108.2 fl (80-94) H 09/25/22 04:28 MCH 33.4 pg (28.0-34.0) 09/25/22 04:28 MCHC 30.9 g/dL (30.0-36.0) 09/25/22 04:28 RDW 14.1 % (12.1-15.1) 09/25/22 04:28 Plt Count 162 10^3/cmm (130-400) 09/25/22 04:28 MPV 11.3 fL (7.4-10.4) H 09/25/22 04:28 Neut % (Auto) 58.5 % 09/25/22 04:28 Lymph % (Auto) 29.0 % 09/25/22 04:28 [place] % (Auto) 8.4 % 09/25/22 04:28 Eos % (Auto) 3.2 % 09/25/22 04:28 Baso % (Auto) 0.6 % 09/25/22 04:28 Neut # (Auto) 3.61 10^3/uL (1.8-7.7) 09/25/22 04:28 Lymph # (Auto) 1.8 10^3/uL (0.8-4.8) 09/25/22 04:28 [place] # (Auto) 0.5 10^3/uL (0.2-0.9) 09/25/22 04:28 Eos # (Auto) 0.2 10^3/uL (0.0-0.8) 09/25/22 04:28 Baso # (Auto) 0.0 10^3/uL (0.0-0.1) 09/25/22 04:28 Nucleated RBC % (auto) 0 % 09/25/22 04:28 Nucleated RBCs # 0.0 /100WBC 09/25/22 04:28 Sodium 140 mmol/L (136-145) 09/25/22 04:28 Potassium 4.0 mmol/L (3.5-5.1) 09/25/22 04:28 Chloride 106 mmol/L (98-107) 09/25/22 04:28 Carbon Dioxide 28 mmol/L (22-29) 09/25/22 04:28 Anion Gap 10.0 (5-19) 09/25/22 04:28 BUN 5 mg/dL (6-20) L 09/25/22 04:28 Creatinine 0.7 mg/dL (0.7-1.2) 09/25/22 04:28 GFR Calculation 128.3 mL/min (90-130) 09/25/22 04:28 Glucose 82 mg/dL (65-115) 09/25/22 04:28 Calculated Osmolality 286 mOsm/kg (285-295) 09/25/22 04:28 Calcium 7.9 mg/dL (8.5-10.5) L 09/25/22 04:28 Phosphorus 2.5 mg/dL (2.5-4.5) 09/25/22 04:28 Magnesium 1.7 mg/dL (1.7-2.3) 09/25/22 04:28 Total Bilirubin 0.8 mg/dL (0.15-1.2) 09/24/22 03:11 AST 82 U/L (0-40) H 09/24/22 03:11 ALT 125 U/L (0-41) H 09/24/22 03:11 Alkaline Phosphatase 168 U/L (40-130) H 09/24/22 03:11 Total Protein 5.4 g/dL (6.6-8.7) L D 09/24/22 03:11 Albumin 3.2 g/dL (3.5-5.2) L 09/24/22 03:11 Globulin 2.2 g/dL (1.3-4.6) 09/24/22 03:11 Triglycerides 85 mg/dL (0-150) 09/23/22 06:20 Lipase 12070 U/L (13-60) H 09/23/22 06:20 Vitamin B12 859 pg/mL (232-1245) 09/23/22 06:20 Urine Color Yellow (Yellow) 09/23/22 06:45 Urine Appearance Clear (CLEAR) 09/23/22 06:45 Urine pH 7 (5-7) 09/23/22 06:45 Ur Specific [place] 1.010 (1.005-1.030) 09/23/22 06:45 Urine Protein Neg (Negative) 09/23/22 06:45 Urine Glucose (UA) Norm (Normal) 09/23/22 06:45 Urine Ketones Negative (Negative) 09/23/22 06:45 Urine Blood Neg (Negative) 09/23/22 06:45 Urine Nitrate Negative (Negative) 09/23/22 06:45 Urine Bilirubin Neg (Negative) 09/23/22 06:45 Urine Urobilinogen Neg mg/dL (Negative) 09/23/22 06:45 Ur Leukocyte Esterase Negative (Negative) 09/23/22 06:45 Procedures Performed Laparoscopic cholecystectomy Vitals Last Vital Signs Temp 97.6 F 09/25/22 08:00 Pulse 60 09/25/22 08:00 Resp 17 09/25/22 08:00 BP 131/81 09/25/22 08:00 Pulse Ox 95 09/25/22 08:00 O2 Del Method 09/25/22 08:00 Discharge Plan Discharge Patient Disposition: Home Condition: Stable Prescriptions: Continued multivitamin Tablet 1 tab PO QAM pantoprazole [Protonix] 40 mg tablet,delayed release (DR/EC) 40 mg PO BID 42 Days Qty: 84 1RF trazodone 50 mg tablet 50 mg PO BEDTIME hydrocodone-acetaminophen 5-325 mg tablet 1 tab PO Q6H PRN (Reason: Pain) paroxetine HCl 20 mg tablet 20 mg PO BEDTIME lisinopril 40 mg tablet 40 mg PO QAM oxycodone 5 mg tablet 5 mg PO Q6H PRN (Reason: Pain) Constulose 10 gram/15 mL solution 30 ml PO BID PRN (Reason: Constipation) atenolol 25 mg tablet 25 mg PO QAM ondansetron 4 mg tablet,disintegrating 4 mg PO BID Discharge Orders: Discharge Order (Routine); Ordered 09/25/22 Ordered By: Chandan Vargas Referrals: Chandan Vargas DO [Physician] - 2 weeks Discharge Diet: Advance as tolerated Discharge Activity: Resume usual activity Patient Instructions: Opioid Safety Activity Restrictions/Additional Instructions: Do not soak incisions underwater for 2 weeks. Shower daily Discharge Attestations Time Spent in Discharge Care*: less than 30 min Quality Metrics Clinical Quality Measures [ No reported AMI, CVA or VTE this stay] Coding Level of Care Code Acute Chg DC note Diagnoses Acute pancreatitis K85.90 Acute cholecystitis K81.0 Hyperbilirubinemia E80.6 Hypertension I10 GERD (gastroesophageal reflux disease) K21.9 Neuropathy G62.9
[2022-09-25] MEDS: multivitamin therapeutic Tablet 1 TAB PO (09:54)
[2022-09-25] MEDS: docusate sodium 100 mg Capsule PO (09:54)
[2022-09-25] MEDS: pantoprazole DR 40 mg Tablet PO (09:54)
[2022-09-25] MEDS: amlodipine 10 mg Tablet PO (09:54)
[2022-09-25] MEDS: sodium chloride 0.9% 1,000 ML 200 ML IV (10:40)
--- NOTE | 2022-09-25 10:57 | P.PN_ITS ---
Subjective Subjective: Patient was seen this morning, sitting up beside the bed, enjoying a Sonic burrito, he passed gas last night, no nausea, no vomiting, he tells me that Dr. Vargas has said that he can go home possibly in the afternoon Vitals/I&O/Wt Last Vital Signs Temp 97.6 F 09/25/22 08:00 Pulse 60 09/25/22 08:00 Resp 18 09/25/22 10:39 BP 131/81 09/25/22 08:00 Pulse Ox 95 09/25/22 08:00 O2 Del Method 09/25/22 08:00 09/24/22 09/25/22 09/25/22 22:59 06:59 14:59 Intake Total 1484.583 / 5301.250 1050 / 6351.250 1010.416 / 1010.416 Output Total 1400 / 1400 1250 / 2650 Balance 84.583 / 3901.250 -200 / 3701.250 1010.416 / 1010.416 Physical Exam Const: COMMON NORMALS: no acute distress and patient oriented x3 Resp: COMMON NORMALS: normal respiratory effort, No retractions, No use of accessory muscles and clear to auscultation bilaterally AUSCULTATION: clear to auscultation bilaterally Cardio: COMMON NORMALS: regular rate, regular rhythm, S1 normal heart sound present and S2 normal heart sound present RATE: regular rate RHYTHM: regular rhythm HEART SOUNDS: S1 normal heart sound present and S2 normal heart sound present GI: COMMON NORMALS: Normal to inspection, nondistended, normoactive bowel sounds present and non-tender Extremity: COMMON NORMALS: no pedal edema Neuro: COMMON NORMALS: patient oriented x3 Psych: COMMON NORMALS: mental status grossly normal Data 09/25/22 04:28 09/25/22 04:28 A&P Assessment and plan (1) Acute pancreatitis: Resolved Patient presents with acute pancreatitis Surgery is primary Pain control Concern cholelithiasis may have contributed Discontinue CRIS inhibitor if he is still taking Monitor triglyceride level (2) Acute cholecystitis: Status post laparoscopic cholecystectomy Pain control Currently on regular diet (3) Hyperbilirubinemia: MRCP does not indicate obstruction, stone in duct Continue to follow, cannot rule out passed stone (4) Hypertension: Continue atenolol on discharge And Norvasc 10 mg daily on discharge, discontinue lisinopril Hydralazine as needed (5) GERD (gastroesophageal reflux disease): Protonix IV (6) Neuropathy: TSH has already been checked May be nutritional, add multivitamin daily Plan History of alcohol use. Again discouraged use. He reports no intake in the last week History of ibuprofen use. Discouraged secondary to concern of reflux, vomiting. Full code DVT prophylaxis per primary Thank you for this consultation Plan for today discharged today Attestations 2 Medical Necessity Statement*: Discharged today Coding Level of Care Code Acute Code for Chg Fwd Diagnoses Acute pancreatitis K85.90 Acute cholecystitis K81.0 Hyperbilirubinemia E80.6 Hypertension I10 GERD (gastroesophageal reflux disease) K21.9 Neuropathy G62.9
== END 2022-09-25 13:30 | disposition home or self-care (01) | DRG 417 ==
LOC: ER 10:42 → OR 11:55 → MEDSURG 14:27
PROVIDERS: Internal Medicine; Admitting Provider Surgery; Emergency Provider Family Medicine; Visit Provider Surgery
PROC: 0FT44ZZ Resection of Gallbladder, Percutaneous Endoscopic Approach (ICD-10-PCS; CPT 47562; principal; 2022-09-23 12:45)
DX: K80.12 Calculus of gallbladder with acute and chronic cholecystitis without obstruction (principal); K85.20 Alcohol induced acute pancreatitis without necrosis or infection; F10.10 Alcohol abuse, uncomplicated; I10 Essential (primary) hypertension; K21.9 Gastro-esophageal reflux disease without esophagitis; G62.1 Alcoholic polyneuropathy; Z79.891 Long term (current) use of opiate analgesic; F17.200 Nicotine dependence, unspecified, uncomplicated; E78.1 Pure hyperglyceridemia
CPT/HCPCS: 36415; 74181; 80048; 80053; 81003; 82607; 83690; 83735; 84100; 84478; 85025; 88304; 93005; 96365; 96372; 96375; 96376; 99285; C9113; J0360; J1100; J1170; J1644; J2250; J2270; J2405; J2543; J2704; J3010; J3490; J7030; Q0163

== ENCOUNTER 2022-10-26 09:01 | Day surgery (SDC) | payer MEDICAID, SELFPAY ==
[2022-10-25 11:22] VITALS: BMI 28.1
[2022-10-26 09:37] VITALS: BP 135/87; PULSE 51; RESP 18; TEMP 36.2; O2SAT 97
--- NOTE | 2022-10-26 09:45 | P.ANESASSM_ITS ---
Pre-Anesthetic Assessment Height/Weight: Height 1.73 m Weight 83.915 kg Temp Pulse Resp BP Pulse Ox O2 Del Method 97.1 F L 51 L 18 135/87 97 10/26/22 09:37 10/26/22 09:37 10/26/22 09:37 10/26/22 09:37 10/26/22 09:37 10/26/22 09:37 Preop Diagnosis: ABD pain Operation Date: 10/26/22 10:30 Proposed Procedures p 22689 EGD K21.9(Not Applicable) - Chandan Vargas DO Familial anesthetic complications: none Was Beta Narayan taken within 24 hours: Yes Was Clonidine taken within 24 hours: N/A Last intake: Intake Last Liquid Date 10/22/22 Last Liquid Time 19:00 Last Solid Date 10/22/22 Last Solid Time 19:00 Last Intake: 19:00 Social Alcohol (twice a week, ) and Tobacco .5 ppd pack(s) per day 20+ pack years Exam alert, oriented x 3, clear to auscultation bilaterally and regular rate & rhythm Airway Submandibular: within normal limits Cervical ROM: within normal limits Mallampati: Class II Dentition: full Pulmonary None reported CV/HEM Hypertension None reported Hepatic None reported GI Gastroesophageal Reflux Disease Metabolic None reported Musc/skel None reported Neuropsych Seizure (last when 10) and None reported Anesthetic Plan ASA status: 2 Anesthesia: MAC Medications/Allergies Home Medications Medication Instructions Recorded Confirmed Last Taken Type multivitamin 1 tab PO QAM 08/30/22 10/25/22 10/21/22 History pantoprazole 40 mg tablet,delayed 40 mg PO BID 6 weeks #84 tabs 08/30/22 10/25/22 10/21/22 Rx release (Protonix) atenolol 25 mg tablet 25 mg PO QAM 09/23/22 10/25/22 10/26/22 07:00 History lactulose 10 gram/15 mL oral 30 ml PO BID PRN Constipation 09/23/22 10/25/22 10/21/22 History solution (Constulose) ondansetron 4 mg disintegrating 4 mg PO BID 09/23/22 10/25/22 10/21/22 History tablet paroxetine HCl 20 mg tablet 20 mg PO BEDTIME 09/23/22 10/25/22 10/21/22 History trazodone 50 mg tablet 50 mg PO BEDTIME 09/23/22 10/25/22 10/21/22 History pantoprazole 40 mg tablet,delayed 40 mg PO BID 6 weeks #84 tabs 10/26/22 Unknown Rx release Allergies Allergy/AdvReac Type Severity Reaction Status Date / Time No Known Allergies Allergy Verified 10/25/22 11:23 [facility] Anesthesia Medical History Acute pancreatitis Cholelithiasis GERD (gastroesophageal reflux disease) Hx of seizure disorder Hypertension Surgical History (Updated 10/11/22 @ 11:10 by Chandan Vargas DO) History of foot surgery History of laparoscopic cholecystectomy Hx of shoulder surgery left shoulder Family History Other Cancer Social History Smoking and tobacco status: current every day smoker Alcohol intake: current Data Anesthesia Cardiac Studies: No Data to Display
[2022-10-26] MEDS: sodium chloride 0.9% 1,000 ML 30 ML IV (09:51)
--- NOTE | 2022-10-26 10:55 | PM.HP ---
Providers/Chief Complaint Primary Care Provider: Pradeep Benito MD Chief Complaint: Gastro-esophageal reflux disease w/o esophagitis History of Present Illness Albert Rangel is a 37 year old male here for EGD Medications/Allergies Home Medications Medication Instructions Recorded Confirmed Last Taken Type multivitamin 1 tab PO QAM 08/30/22 10/25/22 10/21/22 History pantoprazole 40 mg tablet,delayed 40 mg PO BID 6 weeks #84 tabs 08/30/22 10/25/22 10/21/22 Rx release (Protonix) atenolol 25 mg tablet 25 mg PO QAM 09/23/22 10/25/22 10/26/22 07:00 History lactulose 10 gram/15 mL oral 30 ml PO BID PRN Constipation 09/23/22 10/25/22 10/21/22 History solution (Constulose) ondansetron 4 mg disintegrating 4 mg PO BID 09/23/22 10/25/22 10/21/22 History tablet paroxetine HCl 20 mg tablet 20 mg PO BEDTIME 09/23/22 10/25/22 10/21/22 History trazodone 50 mg tablet 50 mg PO BEDTIME 09/23/22 10/25/22 10/21/22 History Allergies Allergy/AdvReac Type Severity Reaction Status Date / Time No Known Allergies Allergy Verified 10/25/22 11:23 PFSH Acute PFSH: Medical History Acute pancreatitis Cholelithiasis GERD (gastroesophageal reflux disease) Hx of seizure disorder Hypertension Surgical History (Updated 10/11/22 @ 11:10 by Chandan Vargas DO) History of foot surgery History of laparoscopic cholecystectomy Hx of shoulder surgery left shoulder Family History Other Cancer Social History Smoking and tobacco status: current every day smoker Alcohol intake: current Vitals/I&O/Wt Last Vital Signs Temp 97.1 F L 10/26/22 09:37 Pulse 51 L 10/26/22 09:37 Resp 18 10/26/22 09:37 BP 135/87 10/26/22 09:37 Pulse Ox 97 10/26/22 09:37 O2 Del Method 10/26/22 09:37 Weight last 48 hrs Weight 185 lb A&P Assessment and plan (1) GERD (gastroesophageal reflux disease): Plan EGD Attestations Medical Necessity Statement*: Home Coding Level of Care Code Acute Code for Chg Fwd Diagnoses GERD (gastroesophageal reflux disease) K21.9
[2022-10-26 11:15] VITALS: BP 107/65; PULSE 64; RESP 16; TEMP 36.3; O2SAT 97
[2022-10-26 11:33] VITALS: BP 119/79; PULSE 60; RESP 16; O2SAT 100
--- NOTE | 2022-10-26 12:56 | ANE.PACU2 ---
Inpatient post-anesthesia follow up: Airway intact: Yes Vital signs: Temperature 97.3 F Pulse Rate 60 Respiratory Rate 16 Blood Pressure 119/79 Pulse Oximetry 100 Oxygen Delivery Me thod Room Air Oxygen Flow Rate 2 Fraction of Inspir ed Oxygen Hydration adequate: Yes Nausea and vomiting: No Pain level: 2 Mental status: Baseline
== END 2022-10-26 11:45 | disposition home or self-care (01) ==
PROVIDERS: PCP Family Medicine; Visit Provider Surgery
PROC: 0DJ08ZZ Inspection of Upper Intestinal Tract, Via Natural or Artificial Opening Endoscopic (ICD-10-PCS; CPT 43235; principal; 2022-10-26 10:30)
DX: K21.00 Gastro-esophageal reflux disease with esophagitis, without bleeding (principal); I10 Essential (primary) hypertension; F17.200 Nicotine dependence, unspecified, uncomplicated; K29.80 Duodenitis without bleeding; K29.70 Gastritis, unspecified, without bleeding
CPT/HCPCS: 88305; G0121; J2704; J7030

== ENCOUNTER 2022-11-08 01:27 | Inpatient (IN) | payer MEDICAID, SELFPAY ==
[2022-11-08 01:31] VITALS: BP 142/91; PULSE 125; RESP 18; TEMP 36.6; O2SAT 97; BMI 27.0
--- NOTE | 2022-11-08 01:46 | W.ED.PSYCHS ---
HPI - Psych General: Chief Complaint: Psychiatric Symptoms Stated Complaint: MHE Time Seen by Provider: 11/08/22 01:46 History of Present Illness: Mr. Rangel is a 37-year-old gentleman with history of hypertension presenting to the emergency department for suicidal ideation with a plan to shoot himself. He has had increased social stressors for and symptoms have been worsening for approximately 1 week. He does endorse alcohol use this evening. He reports having family pickers material handlers his kids because he did not want them to see him hurt himself and subsequently had a family member drive him to the ER. Overall course of symptoms has worsened. Intensity is severe. Denies actual attempt to harm himself or history of suicide attempts. No other specific changes in health, exacerbating, or alleviating factors identified. As medical concern the patient endorses history of cholecystectomy and also EGD with increased abdominal distention and discomfort. He notes chronic diarrhea since his procedure. He has generalized abdominal discomfort which has persisted. Onset (ago): day(s) Duration: getting worse Relieving factors: none Exacerbating factors: none Context: significant life stressor Associated psychiatric symptoms: depression, suicidal ideation and racing thoughts Treatments prior to arrival: none If self harm: admits thoughts of self harm and has plan Review of Systems General: Reports: 10 or more systems reviewed and unremarkable except in HPI and below PFSH ED PFSH: Medical History Acute pancreatitis Cholelithiasis GERD (gastroesophageal reflux disease) Hx of seizure disorder Hypertension Surgical History History of foot surgery History of laparoscopic cholecystectomy Hx of shoulder surgery left shoulder Family History Other Cancer Social History Smoking and tobacco status: current every day smoker Alcohol intake: current Physical Exam Const: COMMON NORMALS: alert GENERAL APPEARANCE: cooperative and well developed HENMT: COMMON NORMALS: normocephalic and atraumatic HEAD & SCALP: normocephalic and atraumatic Eye: COMMON NORMALS: conjunctivae normal CONJUNCTIVA: Yes conjunctivae normal SCLERA: sclerae normal Neck/C-Spine: COMMON NORMALS: supple GENERAL: Yes trachea midline Resp: COMMON NORMALS: normal respiratory effort EFFORT & INSPECTION: Yes able to speak in complete sentences Cardio: COMMON NORMALS: regular rate and regular rhythm RATE: regular rate RHYTHM: regular rhythm GI: COMMON NORMALS: Soft to palpation PALPATION: Yes Soft to palpation, Yes Tenderness to palpation present (GI), No Guarding due to palpation present (GI) and No Rigid due to palpation Extremity: GENERAL: Yes normal exam except as noted and No edema Neuro: COMMON NORMALS: moves all extremities SENSORIUM/ORIENTATION: Yes alert and No Orientation impaired Psych: COMMON NORMALS: mental status grossly normal and Normal thought process present THOUGHT PROCESS: Normal thought process present Skin: NARRATIVE SKIN EXAM: Surgical incisions appear well-healing. Course Vital Signs: Vital signs: Vital Signs Temperature 98.6 F 11/08/22 21:31 Pulse Rate 86 11/08/22 21:31 Respiratory Rate 18 11/08/22 21:31 Blood Pressure 135/93 11/08/22 21:31 Pulse Oximetry 98 11/08/22 21:31 Oxygen Delivery Me thod 11/08/22 14:00 [facility] - Psych Medical Decision Making 37-year-old gentleman presenting with suicidal ideation with plan. He endorses very concerning factors in this history. Exam otherwise as above. Patient is calm and cooperative. He is nontoxic in appearance. Abdominal exam with tenderness but no acute surgical abdomen. Labs notable for hemoconcentration compared to prior, no leukocytosis, no significant metabolic derangement. Mild ALT elevation which is improved from prior. Urinalysis is somewhat abnormal. Plan to send for culture. Alcohol level elevated, UDS positive for benzodiazepines, otherwise toxic ingestions are negative. CT demonstrates no acute pathology to explain patient's abdominal fullness and pain. Patient requires inpatient psychiatric assessment and stabilization given suicidal ideation with high risk features and plan. Affidavit filled out. Based on ED evaluation at this point there is no obvious condition that would preclude the patient from inpatient management psychiatric concerns/symptoms. Discussed with psychiatry service who was agreeable to admit patient. Medical Records I reviewed the patient's medical records. Lab Data I reviewed the patient's lab results. 11/08/22 02:01 11/08/22 02:01 Radiology Impressions Abdomen/Pelvis CT 11/08/22 01:52 IMPRESSION: No acute findings. Laboratory Results WBC 8.1 10^3/uL (4.0-10.0) 11/08/22 02:01 RBC 5.60 10^6/uL (4.1-5.3) H 11/08/22 02:01 Hgb 17.6 g/dL (11.7-16.6) H 11/08/22 02:01 Hct 54.0 % (42.0-52.0) H 11/08/22 02:01 MCV 96.4 fl (80-94) H 11/08/22 02:01 MCH 31.4 pg (28.0-34.0) 11/08/22 02:01 MCHC 32.6 g/dL (30.0-36.0) 11/08/22 02:01 RDW 14.0 % (12.1-15.1) 11/08/22 02:01 Plt Count 378 10^3/cmm (130-400) 11/08/22 02:01 MPV 9.5 fL (7.4-10.4) 11/08/22 02:01 Neut % (Auto) 74.5 % 11/08/22 02:01 Lymph % (Auto) 16.8 % 11/08/22 02:01 [place] % (Auto) 7.2 % 11/08/22 02:01 Eos % (Auto) 0.6 % 11/08/22 02:01 Baso % (Auto) 0.7 % 11/08/22 02:01 Neut # (Auto) 6.04 10^3/uL (1.8-7.7) 11/08/22 02:01 Lymph # (Auto) 1.4 10^3/uL (0.8-4.8) 11/08/22 02:01 [place] # (Auto) 0.6 10^3/uL (0.2-0.9) 11/08/22 02:01 Eos # (Auto) 0.1 10^3/uL (0.0-0.8) 11/08/22 02:01 Baso # (Auto) 0.1 10^3/uL (0.0-0.1) 11/08/22 02:01 Nucleated RBC % (auto) 0 % 11/08/22 02:01 Nucleated RBCs # 0.0 /100WBC 11/08/22 02:01 Sodium 144 mmol/L (136-145) 11/08/22 02:01 Potassium 3.8 mmol/L (3.5-5.1) 11/08/22 02:01 Chloride 102 mmol/L (98-107) 11/08/22 02:01 Carbon Dioxide 24 mmol/L (22-29) 11/08/22 02:01 Anion Gap 21.8 (5-19) H 11/08/22 02:01 BUN 7 mg/dL (6-20) 11/08/22 02:01 Creatinine 0.9 mg/dL (0.7-1.2) 11/08/22 02:01 GFR Calculation 96.0 mL/min (90-130) 11/08/22 02:01 Glucose 143 mg/dL (65-115) H 11/08/22 02:01 Calculated Osmolality 298 mOsm/kg (285-295) H 11/08/22 02:01 Calcium 9.0 mg/dL (8.5-10.5) 11/08/22 02:01 Total Bilirubin 0.2 mg/dL (0.15-1.2) 11/08/22 02:01 AST 37 U/L (0-40) 11/08/22 02:01 ALT 72 U/L (0-41) H 11/08/22 02:01 Alkaline Phosphatase 129 U/L (40-130) 11/08/22 02:01 Total Protein 7.2 g/dL (6.6-8.7) 11/08/22 02:01 Albumin 4.2 g/dL (3.5-5.2) 11/08/22 02:01 Globulin 3.0 g/dL (1.3-4.6) 11/08/22 02:01 TSH 2.32 uIU/mL (0.27-4.20) 11/08/22 02:01 Urine Color Yellow (Yellow) 11/08/22 02:02 Urine Appearance Turbid (CLEAR) A 11/08/22 02:02 Urine pH 5 (5-7) 11/08/22 02:02 Ur Specific [place] 1.030 (1.005-1.030) 11/08/22 02:02 Urine Protein 1+ (Negative) H 11/08/22 02:02 Urine Glucose (UA) 1+ (Normal) H 11/08/22 02:02 Urine Ketones Negative (Negative) 11/08/22 02:02 Urine Blood Neg (Negative) 11/08/22 02:02 Urine Nitrate Negative (Negative) 11/08/22 02:02 Urine Bilirubin Neg (Negative) 11/08/22 02:02 Urine Urobilinogen Norm mg/dL (Negative) 11/08/22 02:02 Ur Leukocyte Esterase Negative (Negative) 11/08/22 02:02 Urine RBC 10-15 /hpf (0-2) H 11/08/22 02:02 Urine WBC 0-4 /hpf (0-5) H 11/08/22 02:02 Ur Squamous Epith Cells 0-4 /hpf (0-5) H 11/08/22 02:02 Amorphous Sediment Not Reportable 11/08/22 02:02 Urine Bacteria 4+ /hpf (NONE) H 11/08/22 02:02 Salicylates < 0.3 mg/dL (3-10) L 11/08/22 02:01 Urine Opiates Screen Negative ng/mL (Negative) 11/08/22 02:02 Acetaminophen < 5.0 ug/mL (10-30) L 11/08/22 02:01 Ur Barbiturates Screen Negative ng/mL (Negative) 11/08/22 02:02 Ur Phencyclidine Scrn Negative ng/mL (Negative) 11/08/22 02:02 Ur Amphetamines Screen Negative ng/mL (Negative) 11/08/22 02:02 U Benzodiazepines Scrn Positive ng/mL (Negative) H 11/08/22 02:02 Urine Cocaine Screen Negative ng/mL (Negative) 11/08/22 02:02 U Marijuana (THC) Screen Negative ng/mL (Negative) 11/08/22 02:02 Ethyl Alcohol 201 mg/dL (0-10) H 11/08/22 02:01 Discharge Plan Discharge Patient Disposition: Admitted As Inpatient Admit Provider: Von Eduardo Clinical Impression: Suicidal ideation, Depression Condition: Stable Coding Level of Care Code ED [employer] for [employer]
--- NOTE | 2022-11-08 01:52 | CTR_ITS ---
PROCEDURE INFORMATION: Exam: CT Abdomen And Pelvis With Contrast Exam date and time: 11/08/2022 2:14 AM Age: 37 years old Clinical indication: Bloating; Abdominal pain; Generalized; Prior surgery; Surgery date: 1-6 months; Surgery type: Lap piper in aug. Patient HX: C/O persistent abd pain with distention since gi scope approx two weeks ago. ; Additional info: Abd pain, distention, post op TECHNIQUE: Imaging protocol: Computed tomography of the abdomen and pelvis with contrast. Radiation optimization: All CT scans at this facility use at least one of these dose optimization techniques: automated exposure control; mA and/or kV adjustment per patient size (includes targeted exams where dose is matched to clinical indication); or iterative reconstruction. Contrast material: OMNI 350; Contrast volume: 100 ml; Contrast route: INTRAVENOUS (IV); REPORTING DATA: Count of CT and Cardiac NM exams in prior 12 months: This patient has received [address] and 0 known cardiac nuclear medicine studies in the 12 months prior to the current study. COMPARISON: MR MRCP [id number] 09/23/2022 9:36 AM RADIATION DOSE METRICS: Total DLP (mGy-cm): 632.47 FINDINGS: Liver: Fatty liver. Gallbladder and bile ducts: Status post cholecystectomy. Pancreas: No ductal dilation. Spleen: No splenomegaly. Adrenal glands: Normal. No mass. Kidneys and ureters: No hydronephrosis. Stomach and bowel: No obstruction. No mucosal thickening. Appendix: No evidence of appendicitis. Intraperitoneal space: No free air. No significant fluid collection. Vasculature: No abdominal aortic aneurysm. Lymph nodes: No enlarged lymph nodes. Urinary bladder: Unremarkable as visualized. Reproductive: Unremarkable as visualized. Bones/joints: Unremarkable. No acute fracture. Soft tissues: Unremarkable. CT/CT abdomen pelvis w con* [id number] IMPRESSION: No acute findings.
[2022-11-08 02:07] LABS: Add Urine Microscopic? YES; Bilirubin Urine Neg (Negative); Blood Urine Neg (Negative); Glucose Urine UA 1+ (Normal); Ketones Urine Negative (Negative); Leukocyte Esterase Urine Negative (Negative); Nitrate Urine Negative (Negative); Protein Urine 1+ (Negative); Urine Appearance Turbid (CLEAR); Urine Color Yellow (Yellow); Urobilinogen Urine Norm (Negative); pH Urine 5 (5-7)
[2022-11-08] MEDS: sodium chloride 0.9% 1,000 ML 999 ML IV (02:07)
[2022-11-08 02:09] LABS: Basophils # 0.1 10^3/uL (0.0-0.1); Basophils % 0.7 %; Eosinophils # 0.1 10^3/uL (0.0-0.8); Eosinophils % 0.6 %; Hemoglobin 17.6 g/dL (11.7-16.6); Lymphocytes # 1.4 10^3/uL (0.8-4.8); Lymphocytes % 16.8 %; Mean Corpuscular HGB Conc 32.6 g/dL (30.0-36.0); Mean Corpuscular Hemoglobin 31.4 pg (28.0-34.0); Mean Corpuscular Volume 96.4 fl (80-94); Mean Platelet Volume 9.5 fL (7.4-10.4); Monocytes # 0.6 10^3/uL (0.2-0.9); Monocytes % 7.2 %; Neutrophils # 6.04 10^3/uL (1.8-7.7); Neutrophils % 74.5 %; Nucleated Red Blood Cells % 0 %; Platelet Count 378 10^3/cmm (130-400); White Blood Count 8.1 10^3/uL (4.0-10.0)
[2022-11-08 02:11] LABS: Bacteria Urine 4+ /hpf; Squamous Epithelial Cell Urine 0-4 /hpf (0-5); WBC Urine 0-4 /hpf (0-5)
[2022-11-08 02:12] LABS: Add Urine Culture? Yes
[2022-11-08 02:15] LABS: Amphetamines Screen Urine Negative (Negative); Barbiturates Screen Urine Negative (Negative); Benzodiazepines Screen Urine Positive (Negative); Cocaine Screen Urine Negative (Negative); Opiate Screen Urine Negative (Negative); PCP Screen Urine Negative (Negative); THC Screen Urine Negative (Negative)
[2022-11-08] MEDS: iohexol 350 mg/mL 500 mL Btl (per mL) IV (02:17)
[2022-11-08 02:32] LABS: Chloride 102 mmol/L (98-107); Potassium 3.8 mmol/L (3.5-5.1); Sodium 144 mmol/L (136-145)
[2022-11-08 02:56] LABS: Alanine Aminotransferase 72 U/L (0-41); Albumin Level 4.2 g/dL (3.5-5.2); Alcohol Level 201 mg/dL (0-10); Alkaline Phosphatase 129 U/L (40-130); Anion Gap 21.8 (5-19); Aspartate Amino Transferase 37 U/L (0-40); Blood Urea Nitrogen 7 mg/dL (6-20); Carbon Dioxide 24 mmol/L (22-29); Glucose 143 mg/dL (65-115); Osmolality Calculated 298 mOsm/kg (285-295); Thyroid Stimulating Hormone 2.32 uIU/mL (0.27-4.20); Total Bilirubin 0.2 mg/dL (0.15-1.2); Total Protein 7.2 g/dL (6.6-8.7)
[2022-11-08 03:04] LABS: Salicylate < 0.3 mg/dL (3-10)
[2022-11-08 03:21] LABS: Acetaminophen < 5.0 ug/mL (10-30)
[2022-11-08 06:06] VITALS: BP 126/92; PULSE 99; RESP 18; TEMP 36.7; O2SAT 98
[2022-11-08 06:08] VITALS: PULSE 82; RESP 18; O2SAT 99
[2022-11-08] MEDS: LORazepam 2 mg Tablet PO ×4 (06:51→21:30)
[2022-11-08] MEDS: folic acid 1 mg Tablet PO (08:17)
[2022-11-08] MEDS: multivitamin therapeutic Tablet 1 TAB PO (08:17)
[2022-11-08] MEDS: thiamine 100 mg Tablet PO (08:17)
--- NOTE | 2022-11-08 12:17 | PC.NURSE ---
Patient given 2mg Ativan PO per CIWA score of 11. We will continue to monitor patient.
[2022-11-08 14:00] VITALS: BP 124/72; PULSE 95; RESP 16; TEMP 36.6; O2SAT 99
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
--- NOTE | 2022-11-08 16:47 | PC.NURSE ---
Administered 2mg Ativan to patient per CIWA protocol. Will continue to monitor patient.
[2022-11-08] MEDS: trazodone 50 mg Tablet PO (21:25)
[2022-11-08 21:31] VITALS: BP 135/93; PULSE 86; RESP 18; TEMP 37; O2SAT 98
[2022-11-09 06:00] VITALS: BP 123/80; PULSE 77; RESP 18; TEMP 36.7; O2SAT 97
[2022-11-09] MEDS: thiamine 100 mg Tablet PO (09:02)
[2022-11-09] MEDS: folic acid 1 mg Tablet PO (09:02)
[2022-11-09] MEDS: multivitamin therapeutic Tablet 1 TAB PO (09:02)
[2022-11-09] MEDS: escitalopram 10 mg Tablet PO (09:03)
[2022-11-09] MEDS: naltrexone hcl 50 mg Tablet PO (09:03)
[2022-11-09] MEDS: hyDROXYzine 25 mg Capsule 50 MG PO ×2 (11:24→21:20)
--- NOTE | 2022-11-09 11:30 | PC.NURSE ---
PRN MED PT GIVEN 5OMG VISTARIL FOR STATED ANXIETY, WILL CONTINUE TO MONITOR.
[2022-11-09 14:00] VITALS: BP 126/86; PULSE 96; RESP 18; TEMP 36.6; O2SAT 97
--- NOTE | 2022-11-09 14:18 | P.NPUPN_ITS ---
Subjective NPU Subjective: 37-year-old white male with depression and alcohol dependence admitted with suicidal ideation. The patient had reported that he was feeling much better. He had endorsed some increased anxiety and had received Ativan to help with managing his alcohol withdrawal. He had reported that he wished to see his children soon. He denied any current thoughts of hurting himself. He had expressed desire to consider outpatient substance abuse rehabilitation as well. Mental Status Exam MSE Comments: He is a casually dressed white male who appeared his stated age with a mika complexion. His gait was normal his hygiene was fair. There was no evidence of any abnormal involuntary motor movements,or tics appreciated. Mild tremor noted. There was evidence of mild psychomotor retardation. The patient had fair eye contact. His mood was described as better. His affect appeared mood incongruent and restricted in range. He endorsed no suicidal ideation with no active plan reported. He denied any homicidal ideation. There was no evidence of any delusional thinking. He did not appear to be responding to internal stimuli. He was alert and oriented to person place time and situation. His insight was fair. His judgment is poor. His impulse control appeared limited at this time. Vitals/I&O/Wt Last Vital Signs Temp 98.0 F 11/09/22 06:00 Pulse 77 11/09/22 06:00 Resp 18 11/09/22 06:00 BP 123/80 11/09/22 06:00 Pulse Ox 97 11/09/22 06:00 O2 Del Method 11/08/22 14:00 Weight last 48 hrs Weight 83.007 kg Data NPU 11/08/22 02:01 11/08/22 02:01 Micro: Microbiology 11/08/22 02:02 Urine Culture - Preliminary Urine,Clean Catch Microbiology 11/08/22 02:02 Urine,Clean Catch Urine Culture - Preliminary A&P Assessment and plan (1) Major depressive disorder with current active episode: (2) Anxiety disorder, unspecified: (3) Alcohol dependence: Plan Patient is a 37-year-old white male admitted with suicidal ideation with significant psychosocial stressors and continued use of alcohol that appears to be escalating. 1.? Continue Lexapro 10mg daily and naltrexone 50mg daily. Referral for substance abuse treatment outpatient basis. 2.? Continue every 15 minute checks for safety. 3.? Encourage individual, group and milieu therapy once he has engaged. 4.? Encourage sobriety treatment after discharge to the hospital care to which he is willing to commit. 5. [facility] protocol for alcohol withdrawal. Involuntary Hold Information 96 Hour Hold: 96 Hour Involuntary Admission: No Attestations NPU Medical Necessity Statement*: Inpatient hospitalization is medically necessary and is clinically appropriate at this time. We will initiate medications and make changes as indicated.?He will be in the hospital for over 2 midnights with likely length of stay of 1-2 days. Coding Level of Care Code Acute Code for g Fwd Diagnoses Major depressive disorder with current active episode F32.9 Anxiety disorder, unspecified F41.9 Alcohol dependence F10.20
[2022-11-09] MEDS: trazodone 50 mg Tablet PO ×2 (21:20→22:20)
[2022-11-09 21:56] VITALS: BP 144/89; PULSE 80; RESP 15; TEMP 36.6; O2SAT 96
[2022-11-09] MEDS: OLANZapine 5 mg ODT PO (22:20)
[2022-11-10 06:00] VITALS: BP 133/74; PULSE 80; RESP 17; TEMP 37; O2SAT 96
[2022-11-10] MEDS: escitalopram 10 mg Tablet PO (08:34)
[2022-11-10] MEDS: multivitamin therapeutic Tablet 1 TAB PO (08:35)
[2022-11-10] MEDS: naltrexone hcl 50 mg Tablet PO (08:35)
[2022-11-10] MEDS: folic acid 1 mg Tablet PO (08:35)
[2022-11-10] MEDS: thiamine 100 mg Tablet PO (08:35)
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
[2022-11-10 14:00] VITALS: BP 133/74; PULSE 80; RESP 17; TEMP 37; O2SAT 96
== END 2022-11-10 14:26 | disposition home or self-care (01) | DRG 881 ==
LOC: ER 04:39 → NP 05:28
PROVIDERS: Admitting Provider Psychiatry & Neurology Psychiatry; Emergency Provider Emergency Medicine; PCP Family Medicine; Visit Provider Psychiatry & Neurology Psychiatry
DX: F32.9 Major depressive disorder, single episode, unspecified (principal); R45.851 Suicidal ideations; F10.239 Alcohol dependence with withdrawal, unspecified; F41.9 Anxiety disorder, unspecified; Y90.7 Blood alcohol level of 200-239 mg/100 ml
CPT/HCPCS: 74177; 80053; 80306; 80307; 81001; 84443; 85025; 87086; 97150; 97165; 99238; 99285; J7030; Q9967